=== PATIENT | male | born 1945 | race Caucasian/White ===

== ENCOUNTER 2017-09-30 13:10 | Inpatient (IN) ==
[2017-09-30] MEDS ORDERED: 0.9 % Sodium Chloride 1,000 ML IVC ONE (13:20)
--- NOTE | 2017-09-30 13:24 | Emergency Department Note ---
Disposition Clinical Impression: Syncope and collapse Disposition: Admitted As Inpatient Condition: Fair Time of Disposition: 17:40 Altered Mental Status HPI - General Chief Complaint: ED Altered Mental Status Stated Complaint: ams Time Seen by Provider: 09/30/17 13:12 Source: patient Mode of arrival: ambulatory Limitations: no limitations Nursing Notes Reviewed: Yes Vital Signs Reviewed: Yes - History of Present Illness HPI Narrative: 72-year-old male history of previous stroke presents complaining of syncope, per the report from EMS and the family is at bedside, he has baseline deficits including a aphasia But no motor deficits. 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 They state he has had episodes of syncope and near-syncope in the past, never this long. At this point he is currently at his neurologic baseline , he can answer some questions but is very slow therefore most history is obtained from family. He denies chest pain, he denies any weakness in his bilateral upper and lower extremities. Denies fever and chills. MD complaint: altered mental status, confusion, other (Syncope) Onset (ago): Just [employer] Timing confirmed by: family member Pain Severity: moderate Consistency of Symptoms: waxing and waning Associated symptoms: Reports: denies other symptoms. Denies: chest pain, cough , diaphoresis, fever, chills, nausea/vomiting Treatments prior to arrival: oxygen - Related Data Home Medications Medication Instructions Recorded Confirmed Atenolol [Tenormin] 25 mg PO DAILY 09/30/17 09/30/17 Atorvastatin [Lipitor] 40 mg PO HS 09/30/17 09/30/17 Cetirizine HCl [Zyrtec] 10 mg PO DAILY PRN 09/30/17 09/30/17 Cholecalciferol (D-3) [Vitamin D] 2,000 unit PO DAILY 09/30/17 09/30/17 Dextrose [Glucose] 16 gm PO ONCE PRN 09/30/17 09/30/17 Insulin ASPART [Novolog Flexpen] 15 unit SQ TIDAC 09/30/17 09/30/17 Potassium Chloride [Klor-Con 10] 10 meq PO DAILY 09/30/17 09/30/17 Tamsulosin [Flomax] 0.4 mg PO DAILY 09/30/17 09/30/17 Allergies Allergy/AdvReac Type Severity Reaction Status Date / Time aspirin Allergy See Verified 08/23/17 23:19 Comments All systems ED: reviewed and negative except as stated. Review of Systems: As Per HPI Constitutional: Reports: as per HPI, weakness. Denies: fever, chills Eyes: Denies: eye pain, eye discharge ENT ED: Denies: ear pain Cardiovascular: Denies: chest pain, palpitations Respiratory: Denies: cough, dyspnea Gastrointestinal: Denies: abdominal pain, nausea Genitourinary: Denies: urgency, dysuria Musculoskeletal: Denies: back pain Integumentary: Denies: rash, abrasion Neurological: Reports: as per HPI, weakness. Denies: headache, numbness, paresthesias Past Medical History - Past Medical History Attestation: Yes The following information was validated with the patient. Source: patient Medical history: Reports: CVA, diabetes, hyperlipidemia, hypertension - Social History Smoking Status: Never smoker Smokeless Tobacco Status: No Alcohol use: Reports: none Drug use: Reports: none Physical Exam Constitutional: NAD, mildly confused but pleasant Eyes: PERRLA, sclera anicteric ENT & Mouth: MM dry Neck: normal inspection, neck is supple Resp: CTA bilaterally, no resp distress CV: RRR, no m/g/r GI: normal inspection, soft, no guarding or rigidity Neuro: A&O3, CNII-XII grossly intact, LLANOS patient has profound Broca's like aphasia word finding issues however moves all extremities equally 5 out of 5 muscle strength upper and lowers, follows commands, finger to nose intact Skin: on limited exam, skin intact with no rashes or lesions Course Course Narrative: 72-year-old male after syncopal event, presents the ED via EMS, given that he has moderate aphasia, his family thinks this is consistent with his baseline but the syncope is ever lasted this long,'s EKG shows a first-degree AV block, he is currently hemodynamically stable at his neurological baseline which is an NIH of 3 for a aphasia and slurred speech. Otherwise is nonfocal neurologically we will get a CT scan workup for altered mental status including CBC BMP tox panel ethanol and reevaluate - Reevaluation(s) Reevaluation #1: Per the family, the patient is more to his baseline, but given the concerning history of syncope in a 72-year-old male the last for a minute, his lab work is written is within normal limits but I do think that he warrants and evaluation inpatient possibly echocardiogram cardiac monitoring, I spoke with the hospitalist and is agreeable to admission. Violet to accept Time: 17:39 Vital Signs Temperature 98.6 F 09/30/17 13:12 Pulse Rate 60 09/30/17 13:12 Respiratory Rate 14 09/30/17 13:12 Blood Pressure 124/74 09/30/17 13:12 O2 Sat by Pulse Oximetry 97 09/30/17 13:12 Temperature 98.6 F 09/30/17 13:12 Pulse Rate 60 09/30/17 13:12 Respiratory Rate 14 09/30/17 13:12 Blood Pressure 124/74 09/30/17 13:12 O2 Sat by Pulse Oximetry 97 09/30/17 13:12 Oxygen Delivery Oxygen Delivery Room Air Altered Mental Status - [facility] Narrative Medical decision making narrative: 72-year-old male with syncope, history of stroke, altered mental status and aphasia at his baseline for syncope to the hospitalist service - Differential Diagnosis Likely: alcoholic intoxication, altered mental status, hypoglycemia, hyponatremia - Medical Records Medical records reviewed: Yes I reviewed the patient's medical records. - Lab Data Lab results reviewed: Yes I reviewed the patient's lab results. Result diagrams: 09/30/17 13:50 09/30/17 13:50 Lab Results 09/30/17 09/30/17 09/30/17 Range/Units 13:13 13:50 13:50 WBC 6.5 (4.3-11.1) K/mcL RBC 3.98 L (4.19-5.50) M/mcL Hgb 11.8 L (12.9-16.9) g/dL Hct 35.5 L (37.5-50.1) % MCV 89.2 (83.0-100.0) fL MCH 29.6 (28.0-33.3) pg MCHC 33.2 (31.6-35.5) g/dL RDW 13.2 (11.5-14.5) % Plt Count 250 (140-400) K/mcL MPV 9.8 (9.4-12.4) fL Immature Gran % 0.3 (0-4) % Seg Neutrophils % 53.6 % Lymphocytes % 34.4 % Monocytes % 6.6 % Eosinophils % 4.6 % Basophils % 0.5 % Neutrophils # 3.5 (1.6-8.9) K/mcL Lymphocytes # 2.2 (0.6-4.6) K/mcL Monocytes # 0.4 (0.0-1.3) K/mcL Eosinophils # 0.3 (0.0-0.6) K/mcL Basophils # 0.0 (0.0-0.2) K/mcL PT 12.2 H (9.4-12.1) Seconds INR 1.1 APTT 29.2 (26.0-36.0) Seconds Sodium (136-145) mEq/L Potassium (3.5-5.1) mEq/L Chloride (98-107) mEq/L Carbon Dioxide (23-29) mEq/L BUN (8-23) mg/dL Creatinine (0.70-1.30) mg/dL Est GFR ( Amer) (> 60) Est GFR (Non-Af Amer) (> 60) BUN/Creatinine Ratio (6-26) Glucose (70-105) mg/dL POC Glucose 131 H (58-89) Calculated Osmolality (280-300) Calcium (8.6-10.3) mg/dL Total Bilirubin (0.3-1.0) mg/dL Direct Bilirubin (0.0-0.2) mg/dL Indirect Bilirubin (0.0-1.2) mg/dL AST (13-39) Units/L ALT (7-52) Units/L Alkaline Phosphatase (34-104) Units/L Ammonia (16-53) mcmol/L Creatine Kinase (30-223) Units/L Troponin I (< 0.04) ng/mL Serum Total Protein (6.4-8.9) g/dL Albumin (3.5-5.7) g/dL Globulin (2.4-3.5) g/dL Albumin/Globulin Ratio (1.1-2.2) TSH (0.340-5.600) mcIU/mL Urine Color (Yellow) Urine Clarity (Clear) Urine pH (5.0-8.0) pH Units Ur Specific [place] (1.010-1.025) Urine Protein (Neg-Trace) mg/dL Urine Glucose (UA) (Normal) mg/dL Urine Ketones (Negative) mg/dL Urine Blood (Negative) Urine Nitrite (Negative) Urine Bilirubin (Negative) Urine Urobilinogen (Normal) mg/dL Ur Leukocyte Esterase (Negative) Urine Microscopic RBC (0-3) per hpf Urine Microscopic WBC (0-3) per hpf Ur Squamous Epith Cells (None-Few) per lpf Urine Bacteria (None-Few) per hpf Hyaline Casts (None-Few) per lpf Ur Culture Indicated? (NO) Urine Opiates Screen (Xkymrs=186) ng/mL Ur Barbiturates Screen (Rjsjzn=281) ng/mL Ur Phencyclidine Scrn (Cutoff=25) ng/mL Ur Amphetamines Screen (Mzkbku=0697) ng/mL U Benzodiazepines Scrn (Mrpcop=573) ng/mL Urine Cocaine Screen (Cutoff= 300) ng/mL U Marijuana (THC) Screen (Cutoff = 50) ng/mL Ethyl Alcohol (0-10) mg/dL 09/30/17 09/30/17 09/30/17 Range/Units 13:50 13:50 13:50 WBC (4.3-11.1) K/mcL RBC (4.19-5.50) M/mcL Hgb (12.9-16.9) g/dL Hct (37.5-50.1) % MCV (83.0-100.0) fL MCH (28.0-33.3) pg MCHC (31.6-35.5) g/dL RDW (11.5-14.5) % Plt Count (140-400) K/mcL MPV (9.4-12.4) fL Immature Gran % (0-4) % Seg Neutrophils % % Lymphocytes % % Monocytes % % Eosinophils % % Basophils % % Neutrophils # (1.6-8.9) K/mcL Lymphocytes # (0.6-4.6) K/mcL Monocytes # (0.0-1.3) K/mcL Eosinophils # (0.0-0.6) K/mcL Basophils # (0.0-0.2) K/mcL PT (9.4-12.1) Seconds INR APTT (26.0-36.0) Seconds Sodium 138 (136-145) mEq/L Potassium 3.7 (3.5-5.1) mEq/L Chloride 101 (98-107) mEq/L Carbon Dioxide 28 (23-29) mEq/L BUN 18 (8-23) mg/dL Creatinine 1.47 H (0.70-1.30) mg/dL Est GFR ( Amer) 57 L (> 60) Est GFR (Non-Af Amer) 47 L (> 60) BUN/Creatinine Ratio 12 (6-26) Glucose 141 H (70-105) mg/dL POC Glucose (58-89) Calculated Osmolality 290 (280-300) Calcium 9.5 (8.6-10.3) mg/dL Total Bilirubin 0.5 (0.3-1.0) mg/dL Direct Bilirubin 0.1 (0.0-0.2) mg/dL Indirect Bilirubin 0.4 (0.0-1.2) mg/dL AST 19 (13-39) Units/L ALT 14 (7-52) Units/L Alkaline Phosphatase 57 (34-104) Units/L Ammonia 27 (16-53) mcmol/L Creatine Kinase 306 H (30-223) Units/L Troponin I < 0.03 (< 0.04) ng/mL Serum Total Protein 7.0 (6.4-8.9) g/dL Albumin 4.2 (3.5-5.7) g/dL Globulin 2.8 (2.4-3.5) g/dL Albumin/Globulin Ratio 1.5 (1.1-2.2) TSH 2.859 (0.340-5.600) mcIU/mL Urine Color (Yellow) Urine Clarity (Clear) Urine pH (5.0-8.0) pH Units Ur Specific [place] (1.010-1.025) Urine Protein (Neg-Trace) mg/dL Urine Glucose (UA) (Normal) mg/dL Urine Ketones (Negative) mg/dL Urine Blood (Negative) Urine Nitrite (Negative) Urine Bilirubin (Negative) Urine Urobilinogen (Normal) mg/dL Ur Leukocyte Esterase (Negative) Urine Microscopic RBC (0-3) per hpf Urine Microscopic WBC (0-3) per hpf Ur Squamous Epith Cells (None-Few) per lpf Urine Bacteria (None-Few) per hpf Hyaline Casts (None-Few) per lpf Ur Culture Indicated? (NO) Urine Opiates Screen (Iemexs=438) ng/mL Ur Barbiturates Screen (Aufzhv=864) ng/mL Ur Phencyclidine Scrn (Cutoff=25) ng/mL Ur Amphetamines Screen (Baiyvb=2940) ng/mL U Benzodiazepines Scrn (Uxlwls=539) ng/mL Urine Cocaine Screen (Cutoff= 300) ng/mL U Marijuana (THC) Screen (Cutoff = 50) ng/mL Ethyl Alcohol < 10 (0-10) mg/dL 09/30/17 09/30/17 Range/Units 16:02 16:02 WBC (4.3-11.1) K/mcL RBC (4.19-5.50) M/mcL Hgb (12.9-16.9) g/dL Hct (37.5-50.1) % MCV (83.0-100.0) fL MCH (28.0-33.3) pg MCHC (31.6-35.5) g/dL RDW (11.5-14.5) % Plt Count (140-400) K/mcL MPV (9.4-12.4) fL Immature Gran % (0-4) % Seg Neutrophils % % Lymphocytes % % Monocytes % % Eosinophils % % Basophils % % Neutrophils # (1.6-8.9) K/mcL Lymphocytes # (0.6-4.6) K/mcL Monocytes # (0.0-1.3) K/mcL Eosinophils # (0.0-0.6) K/mcL Basophils # (0.0-0.2) K/mcL PT (9.4-12.1) Seconds INR APTT (26.0-36.0) Seconds Sodium (136-145) mEq/L Potassium (3.5-5.1) mEq/L Chloride (98-107) mEq/L Carbon Dioxide (23-29) mEq/L BUN (8-23) mg/dL Creatinine (0.70-1.30) mg/dL Est GFR ( Amer) (> 60) Est GFR (Non-Af Amer) (> 60) BUN/Creatinine Ratio (6-26) Glucose (70-105) mg/dL POC Glucose (58-89) Calculated Osmolality (280-300) Calcium (8.6-10.3) mg/dL Total Bilirubin (0.3-1.0) mg/dL Direct Bilirubin (0.0-0.2) mg/dL Indirect Bilirubin (0.0-1.2) mg/dL AST (13-39) Units/L ALT (7-52) Units/L Alkaline Phosphatase (34-104) Units/L Ammonia (16-53) mcmol/L Creatine Kinase (30-223) Units/L Troponin I (< 0.04) ng/mL Serum Total Protein (6.4-8.9) g/dL Albumin (3.5-5.7) g/dL Globulin (2.4-3.5) g/dL Albumin/Globulin Ratio (1.1-2.2) TSH (0.340-5.600) mcIU/mL Urine Color Yellow (Yellow) Urine Clarity Cloudy A (Clear) Urine pH 5.5 (5.0-8.0) pH Units Ur Specific [place] 1.017 (1.010-1.025) Urine Protein >=300 H (Neg-Trace) mg/dL Urine Glucose (UA) Normal (Normal) mg/dL Urine Ketones Negative (Negative) mg/dL Urine Blood Negative (Negative) Urine Nitrite Negative (Negative) Urine Bilirubin Negative (Negative) Urine Urobilinogen Normal (Normal) mg/dL Ur Leukocyte Esterase Small H (Negative) Urine Microscopic RBC 0-3 (0-3) per hpf Urine Microscopic WBC 15-30 H (0-3) per hpf Ur Squamous Epith Cells Many H (None-Few) per lpf Urine Bacteria None Seen (None-Few) per hpf Hyaline Casts None Seen (None-Few) per lpf Ur Culture Indicated? NO (NO) Urine Opiates Screen Negative (Tkzkow=514) ng/mL Ur Barbiturates Screen Negative (Jnoywp=115) ng/mL Ur Phencyclidine Scrn Negative (Cutoff=25) ng/mL Ur Amphetamines Screen Negative (Vctaty=4941) ng/mL U Benzodiazepines Scrn Negative (Bnmdfr=947) ng/mL Urine Cocaine Screen Negative (Cutoff= 300) ng/mL U Marijuana (THC) Screen Negative (Cutoff = 50) ng/mL Ethyl Alcohol (0-10) mg/dL - Radiology Data Radiology results reviewed: Yes I reviewed the patient's radiology results. Chest X-Ray 09/30/17 13:20 IMPRESSION: No acute cardiopulmonary findings. D/ / Yane Staples MD / Yane Staples MD Interpreting Provider: Yane Staples MD Head CT 09/30/17 13:21 IMPRESSION: 1. No acute intracranial abnormality. 2. Mild cerebral atrophy with chronic small vessel ischemic disease. 3. Old left frontal lobe infarct. D/ / Maurice Ledbetter MD / Maurice Ledbetter MD Interpreting Provider: Maurice Ledbetter MD - EKG Data EKG attestation: Yes I reviewed and interpreted this EKG. EKG shows normal: sinus rhythm Rate: bradycardia (59 bpm WY 1 228 QRS 146 QTC 539, prolonged QT, prolonged [place] interval. 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 Warnings/Precautions Patient/family understanding: The patient/family members have been counseled and understood the risk, benefit , and alternatives of treatment. NIH Stroke Scale - Level of Consciousness LOC: Alert - LOC Questions LOC Questions: Answers one correctly - LOC Commands LOC Commands: Performs both correctly - Best Gaze Best Gaze: Normal - Visual Visual: No visual loss - Facial Palsy Facial Palsy: Normal - Motor Arms Motor Arm-Left: No drift for 10 seconds Motor Arm-Right: No drift for 10 seconds - Motor Legs Motor Leg-Left: No drift for 5 seconds Motor Leg-Right: No drift for 5 seconds - Limb Ataxia Limb Ataxia: Absent of affected limb too weak to perform exam - Sensory Sensory: Normal - Best Language Best Language: Mild to moderate aphasia. Examiner can identify picture from response - Dysarthria Dysarthria: Mild, slurs some words - Extinction and Inattention Extinction and Inattention: Normal - NIHSS Total Score NIHSS Total Score: 3
--- NOTE | 2017-09-30 13:26 | Emergency Department Note ---
START Narrative - START START: I examined this patient and my medical decision-making was reviewed with the Resident Physician. I agree with the documented findings, disposition and treatment plan as described except to the extent set forth below. 72 yo M here for syncope from [facility] pt was getting his eyes dilated and was sitting in dark room and began to feel weak and had a full syncopal episode of a few min. denies cp or sob he is at his baseline now. pt has some problems with speech and sentences and gets confused easily. previous CVA has left him at his baseline BP at the scene was in the 70s systolic. its normal now
[2017-09-30 14:02] LABS: Basophils % 0.5 %; Eosinophils # 0.3 K/mcL (0.0-0.6); Eosinophils % 4.6 %; Hematocrit 35.5 % (37.5-50.1); Hemoglobin 11.8 g/dL (12.9-16.9); Immature Granulocytes % 0.3 % (0-4); Lymphocytes # 2.2 K/mcL (0.6-4.6); Lymphocytes % 34.4 %; Mean Corpuscular HGB Conc 33.2 g/dL (31.6-35.5); Mean Corpuscular Hemoglobin 29.6 pg (28.0-33.3); Mean Corpuscular Volume 89.2 fL (83.0-100.0); Mean Platelet Volume 9.8 fL (9.4-12.4); Monocytes # 0.4 K/mcL (0.0-1.3); Monocytes % 6.6 %; Neutrophils # 3.5 K/mcL (1.6-8.9); Platelet Count 250 K/mcL (140-400); Red Blood Count 3.98 M/mcL (4.19-5.50); Red Cell Distribution Width 13.2 % (11.5-14.5); Segmented Neutrophils % 53.6 %
[2017-09-30 14:06] LABS: INR 1.1; Prothrombin Time 12.2 Seconds (9.4-12.1)
[2017-09-30 14:08] LABS: Activated Partial Thrombo Time 29.2 Seconds (26.0-36.0)
[2017-09-30 14:13] LABS: Ethanol < 10 mg/dL (0-10)
[2017-09-30 14:28] LABS: Alanine Aminotransferase 14 Units/L (7-52); Albumin 4.2 g/dL (3.5-5.7); Albumin/Globulin Ratio 1.5 (1.1-2.2); Alkaline Phosphatase 57 Units/L (34-104); Aspartate Amino Transferase 19 Units/L (13-39); BUN/Creatinine Ratio 12 (6-26); Bilirubin,Direct 0.1 mg/dL (0.0-0.2); Bilirubin,Indirect 0.4 mg/dL (0.0-1.2); Bilirubin,Total 0.5 mg/dL (0.3-1.0); Blood Urea Nitrogen 18 mg/dL (8-23); Calcium 9.5 mg/dL (8.6-10.3); Carbon Dioxide 28 mEq/L (23-29); Chloride 101 mEq/L (98-107); Creatine Kinase 306 Units/L (30-223); Globulin 2.8 g/dL (2.4-3.5); Glucose 141 mg/dL (70-105); Osmolality,Calculated 290 (280-300); Potassium 3.7 mEq/L (3.5-5.1); Sodium 138 mEq/L (136-145); eGFR For African Americans 57 (> 60); eGFR For Non-African Americans 47 (> 60)
[2017-09-30 14:29] LABS: Thyroid Stimulating Hormone 2.859 mcIU/mL (0.340-5.600)
[2017-09-30 16:49] LABS: Bilirubin,Urine Negative (Negative); Blood,Urine Negative (Negative); Clarity,Urine Cloudy (Clear); Color,Urine Yellow (Yellow); Glucose,Urine (UA) Normal (Normal); Ketones,Urine Negative (Negative); Leukocyte Esterase,Urine Small (Negative); Nitrite,Urine Negative (Negative); PH,Urine 5.5 pH Units (5.0-8.0); Protein,Urine >=300 mg/dL (Neg-Trace); Specific Gravity,Urine 1.017 (1.010-1.025); Urobilinogen,Urine Normal (Normal)
[2017-09-30 16:52] LABS: Bacteria,Urine None Seen per hpf (None-Few); Hyaline Casts,Urine None Seen per lpf (None-Few); RBC,Urine 0-3 per hpf (0-3); Squamous Epithelial Cell,Urine Many per lpf (None-Few); WBC,Urine 15-30 per hpf (0-3)
[2017-09-30 16:56] LABS: Amphetamine Screen,Urine Negative ng/mL (Cutoff=1000); Barbiturate Screen,Urine Negative ng/mL (Cutoff=200); Benzodiazepines Screen,Urine Negative ng/mL (Cutoff=200); Cannabinoid Screen,Urine Negative ng/mL (Cutoff = 50); Cocaine Screen,Urine Negative ng/mL (Cutoff= 300); Opiate Screen,Urine Negative ng/mL (Cutoff=300); Phencyclidine Screen,Urine Negative ng/mL (Cutoff=25)
[2017-09-30] MEDS ORDERED: Ondansetron ODT 4 MG TAB.RAPDIS SL PRN (21:22)
[2017-09-30] MEDS ORDERED: Acetaminophen 325 MG TABLET PO PRN (21:22)
[2017-09-30] MEDS ORDERED: Naloxone 0.4 MG/ML INJ IVP PRN (21:22)
[2017-09-30] MEDS ORDERED: 0.9 % Sodium Chloride 1,000 ML IVC SCH (22:15)
--- NOTE | 2017-09-30 22:16 | Internal Med History&Physical ---
Date of Encounter: 09/30/17 Time of Encounter: 22:36 Assessment and Plan (1) Syncope and collapse Current visit: Yes Status: Acute Patient had a episode of syncope and had LOC for unknown amount time. He was back to baseline within a little over an hour Unsure if this is related to hypoglycemia orthostatic vasovagal or TIA. CT of head was negative for any acute intracranial abnormality. We will obtain MRI in the morning Continue neuro checks NHISS Obtain cardiac echo Cardiac monitoring Orthostatic vital signs Fall precautions IV fluids overnight Carotid Doppler (2) HANY (acute kidney injury) Current visit: Yes Status: Acute Creatinine is 1.47 unsure if this is his baseline we will continue to monitor We will give IV fluids overnight Monitor intake and output daily weights Avoid nephrotoxins (3) Diabetes mellitus Current visit: Yes Status: Acute Accu-Cheks before meals at bedtime with sliding scale insulin Diabetic diet Qualifiers: Diabetes mellitus type: type 2 Diabetes mellitus complication status: without complication Diabetes mellitus intermodal customer service insulin use: with intermodal customer service use Qualified Code(s): E11.9 - Type 2 diabetes mellitus without complications ; Z79.4 - retirement (current) use of insulin; Z79.4 - retirement (current) use of insulin; 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 Renner is a 72 year old male past medical history of CVA diabetes hyperlipidemia hypertension. Information obtained from medical records as well as patient patient does have a history of aphasia and has difficulty speaking. 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 There was no instrumentation of his eyes. The patient states that his blood sugar dropped, he was out for several minutes and the EMS was notified. According documentation upon arrival patient's systolic blood pressure was in the 70s. He began to arouse and by the time he presented to the ER he was awake and appropriate following commands. After about an hour he was back to his baseline. He has had a stroke in the past and he has Broca aphasia no focal deficits. CT of head was obtained which did reveal an old frontal infarct but nothing acute. Lab work did show a KI with creatinine 1.47 troponin was negative tox screen was negative chest x-ray with no acute process. He has been admitted for further workup and evaluation. Presently patient is hemodynamically stable and does not appear to be respiratory distress. He is at his neurological baseline. I did review this case with Dr. Cuevas 7 Past Med Surg Social Fam HX - Past Medical History Medical history: CVA, diabetes, hyperlipidemia, hypertension Psychiatric history: no psych history - Social History Smoking Status: Never smoker Smokeless Tobacco Status: No Alcohol use: none Drug use: none - Additional Family History Additional family history: Reviewed-unknown Internal Medicine - H&P: Meds Atenolol [Tenormin] 25 mg PO DAILY 09/30/17 [History] Atorvastatin [Lipitor] 40 mg PO HS 09/30/17 [History] Cetirizine HCl [Zyrtec] 10 mg PO DAILY PRN 09/30/17 [History] Cholecalciferol (D-3) [Vitamin D] 2,000 unit PO DAILY 09/30/17 [History] Dextrose [Glucose] 16 gm PO ONCE PRN 09/30/17 [History] Insulin ASPART [Novolog Flexpen] 15 unit SQ TIDAC 09/30/17 [History] Potassium Chloride [Klor-Con 10] 10 meq PO DAILY 09/30/17 [History] Tamsulosin [Flomax] 0.4 mg PO DAILY 09/30/17 [History] 3 Allergy/AdvReac Type Severity Reaction Status Date / Time aspirin Allergy See Verified 08/23/17 23:19 Comments ROS unobtainable: due to mental status, other All Systems PM: A 10-system review of systems was performed and is negative for pertinent findings except as documented above in the HPI. - Constitutional Vitals: Temp Pulse Resp BP Pulse Ox 98.3 F 75 16 144/77 97 09/30/17 21:45 09/30/17 21:45 09/30/17 21:45 09/30/17 21:45 09/30/17 18:42 General appearance: Present: A&O X 3 - Head Head exam: Present: atraumatic, normocephalic - Eye Eye exam: Present: PERRL, conjuntiva pink, sclera anicteric Pupils: Present: PERRL - Neck Neck exam general surgery: Present: supple, trachea midline. Absent: lymphadenopathy - Respiratory Respiratory exam: Present: CTAB. Absent: accessory muscle use, rales, rhonchi, wheezes - Cardiovascular Cardiovascular exam: Present: RRR, +S1, +S2. Absent: diastolic murmur, gallop, rubs, systolic murmur - GI/Abdominal GI/Abdominal exam: Present: normal bowel sounds, soft, no peritoneal signs. Absent: distended, tenderness - Extremities Exam Extremities exam: Present: warm, radial pulses palpable and symmetrical. Absent : calf tenderness, cyanotic, pedal edema - Neurological Exam Neurological exam: Present: alert, CN II-XII intact, oriented X3, no focal deficits. Absent: pronater drift, facial droop, speech deficit Additional comments: Broken speech pattern - Skin Skin exam: Present: dry, intact Internal Med - H&P Results - Labs CBC & Chem 7: 09/30/17 13:50 09/30/17 13:50 - EKG Data EKG shows normal: sinus rhythm - EKG Data Prior EKG available for review: yes When compared to previous EKG: there is no significant change EKG comments: 09/30/17 22:27 Sinus rhythm with first-degree block no ST-T wave abnormal maladies noted
[2017-09-30] MEDS ORDERED: D5% in Water 1,000 ML IVC PRN (22:17)
[2017-09-30] MEDS ORDERED: *HR* Dextrose 50 % in Water (Syg) 50 ML SYRINGE IVP PRN (22:17)
[2017-09-30] MEDS ORDERED: Dextrose Gel 15 GM PO PRN ×2 (22:17)
[2017-10-01 04:42] LABS: Basophils # 0.1 K/mcL (0.0-0.2); Basophils % 0.8 %; Eosinophils # 0.3 K/mcL (0.0-0.6); Eosinophils % 4.9 %; Hematocrit 33.2 % (37.5-50.1); Hemoglobin 10.9 g/dL (12.9-16.9); Immature Granulocytes % 0.2 % (0-4); Lymphocytes % 41.4 %; Mean Corpuscular HGB Conc 32.8 g/dL (31.6-35.5); Mean Corpuscular Hemoglobin 29.8 pg (28.0-33.3); Mean Corpuscular Volume 90.7 fL (83.0-100.0); Mean Platelet Volume 10.9 fL (9.4-12.4); Monocytes # 0.5 K/mcL (0.0-1.3); Monocytes % 7.6 %; Neutrophils # 2.7 K/mcL (1.6-8.9); Platelet Count 159 K/mcL (140-400); Red Blood Count 3.66 M/mcL (4.19-5.50); Red Cell Distribution Width 13.1 % (11.5-14.5); Segmented Neutrophils % 45.1 %
[2017-10-01 05:05] LABS: BUN/Creatinine Ratio 14 (6-26); Blood Urea Nitrogen 17 mg/dL (8-23); Calcium 8.8 mg/dL (8.6-10.3); Carbon Dioxide 22 mEq/L (23-29); Chloride 107 mEq/L (98-107); Glucose 174 mg/dL (70-105); Magnesium 2.1 mg/dL (1.6-2.6); Osmolality,Calculated 298 (280-300); Potassium 3.8 mEq/L (3.5-5.1); Sodium 141 mEq/L (136-145); eGFR For African Americans > 60 (> 60); eGFR For Non-African Americans 60 (> 60)
[2017-10-01] MEDS: *HR* Heparin 5,000 UNIT/ML VIAL SQ SCH ×2 (05:11→17:21)
[2017-10-01 05:12] LABS: Lymphocytes # 2.4 K/mcL (0.6-4.6)
[2017-10-01 05:23] LABS: Platelet Estimate Normal (Normal)
[2017-10-01] MEDS: Insulin LISPRO 300 UNITS/3 ML VIAL SQ SCH ×3 (08:37→17:21)
--- NOTE | 2017-10-01 16:18 | Internal Med Progress Note ---
Date of Encounter: 10/01/17 Time of Encounter: 09:05 - Assessment and plan (1) DVT prophylaxis Current Visit: Yes Status: Acute Assessment and plan: Heparin subcutaneous (2) Syncope and collapse Current Visit: Yes Status: Acute Assessment and plan: She reports that he was at the eye doctor at the [place]. He just had his eyes dilated when he reported to his he has not eaten several hours and he was not feeling well. He states that they attempted to give him food and drinks, however it was too late. Patient had syncopal episode and was brought to the emergency department from the [facility]. 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 Apparently he had several minute loss of consciousness. Patient has prior history of syncope and near syncope in the past, however never this long. Patient is neurologically intact. His gait is steady. He does not report dizziness with position change. He is neurologically intact other than his normal baseline deficits. Urinary reported paresthesia, patient does appear to have some mild difficulty speaking , that he is easy to understand speech is slightly slurred. Normal for patient. Chest x-ray is negative. Head CT negative for acute, there is mild cerebral atrophy with chronic small vessel ischemic disease and an old left frontal lobe infarct. Patient echocardiogram with preserved EF., Moderate healthy DD, mild MR and normal wall motion. Carotid with nonstenotic plaque bilaterally in the ICA. Orthostatic vital signs are negative. MRI head is still pending. Continue surgical rn labs Follow-up precautions and bed alarm MRI brain still pending. We will consult neurology based on results (3) HANY (acute kidney injury) Current Visit: Yes Status: Acute Assessment and plan: Patient denies any knowledge of renal disease. Minimal past results to trend, however does appear that he has at least CKD III. Avoid nephrotoxins Monitor labs (4) Diabetes mellitus Current Visit: Yes Status: Chronic Assessment and plan: A1c is ordered for the morning. Continue sliding scale insulin, Accu-Cheks before meals and at bedtime, diabetic diet. 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 - Time Spent With Patient less than 15 minutes - Subjective Interval history: Patient was seen and assessed at 9:05 AM. He reports that he believes that he was hypoglycemic which caused his syncopal episode. Patient is incontinent of urine. He states that he never followed up on [facility]. He has been wearing and told diapers for over a year. Patient would like to follow up with dermatology here for investigation after discharge. He denies any chest pain, shortness of breath, diaphoresis, nausea, vomiting, abdominal pain. - Constitutional Vitals: Temp Pulse Resp BP Pulse Ox 98.7 F 58 15 161/72 99 10/01/17 16:02 10/01/17 16:02 10/01/17 16:02 10/01/17 16:02 10/01/17 16:02 General appearance: Present: cooperative, A&O X 3, pleasant, no acute distress, answers questions appropriately - Head Head exam: Present: atraumatic, normal inspection, normocephalic - Eye Eye exam: Present: normal appearance, conjuntiva pink, sclera anicteric - Neck Neck exam general surgery: Present: supple, trachea midline. Absent: lymphadenopathy, normal inspection, tenderness - Respiratory Respiratory exam: Present: CTAB. Absent: accessory muscle use, rales, rhonchi, wheezes - Cardiovascular Cardiovascular exam: Present: RRR, +S1, +S2. Absent: diastolic murmur, gallop, rubs, systolic murmur - GI/Abdominal GI/Abdominal exam: Present: normal bowel sounds, soft, no peritoneal signs. Absent: distended, hepatomegaly, tenderness - Extremities Exam Extremities exam: Present: normal capillary refill, normal inspection, warm, radial pulses palpable and symmetrical. Absent: calf tenderness, cyanotic, pedal edema - Neurological Exam Neurological exam: Present: alert, oriented X3, no focal deficits. Absent: facial droop, speech deficit - Skin Skin exam: Present: dry, intact, normal color, warm. Absent: rash Internal Medicine: Result - Labs CBC & Chem 7: 10/01/17 04:03 10/01/17 04:03 Labs: Short CBC 10/01/17 Range/Units 04:03 WBC 5.9 (4.3-11.1) K/mcL Hgb 10.9 L (12.9-16.9) g/dL Hct 33.2 L (37.5-50.1) % Plt Count 159 (140-400) K/mcL Neutrophils # 2.7 (1.6-8.9) K/mcL BMP 10/01/17 04:03 Sodium 141 Potassium 3.8 Chloride 107 Carbon Dioxide 22 L BUN 17 Creatinine 1.19 Glucose 174 H Calcium 8.8 Cardiac Enzymes 09/30/17 10/01/17 Range/Units 21:48 04:03 Troponin I < 0.03 < 0.03 (< 0.04) ng/mL - ABG Interpretation ABG results: PT/INR, D-dimer PT 12.2 Seconds (9.4-12.1) H 09/30/17 13:50 - Impressions Impressions Echocardiogram 09/30/17 22:08 Impressions: LVEF 55-60%. Normal LV chamber size, wall thickness and function. Moderate left ventricular diastolic dysfunction. Normal right ventricular structure and function. Mild mitral regurgitation. Mild pulmonary hypertension. Left Ventricular Wall Motion: Rest Echo Findings All wall segments showed normal motion. Findings: Study Quality * Technically adequate exam. ECG Findings * Normal sinus rhythm. Left Ventricle * LVEF 55-60%. * Normal LV chamber size, wall thickness and function. * Moderate left ventricular diastolic dysfunction. Right Ventricle * Normal right ventricular structure and function. Left Atrium * Moderately dilated left atrium. Right Atrium * Mildly dilated right atrium. Interatrial Septum * No evidence of PFO by color Doppler. Aortic Valve * Trileaflet aortic valve. * Mildly sclerotic aortic valve leaflets. * No aortic regurgitation. * No aortic stenosis. Mitral Valve * Normal mitral valve structure. * Mild mitral regurgitation. * No mitral stenosis. Tricuspid Valve * Normal tricuspid valve structure and function. * Trace tricuspid regurgitation. * Mild pulmonary hypertension. Pulmonic Valve * Normal pulmonic valve structure and function. * No pulmonic regurgitation. Aorta * Normally sized aortic root. Pericardium * The pericardium appears normal. IVC * Normal IVC dimensions and inspiratory collapse. Pulmonary Artery * Normal visualized portions of the main pulmonary artery. Consult Discharge Plan - Plan [facility]errals: [facility] [Primary Care Provider[facility] - [facility] [Family Provider] -
--- NOTE | 2017-10-01 16:33 | Electrocardiograph Report ---
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
[2017-10-01] MEDS ORDERED: Insulin LISPRO 300 UNITS/3 ML VIAL SQ SCH (21:00)
[2017-10-02 05:32] LABS: Hemoglobin A1C 7.1 %
[2017-10-02 05:41] LABS: BUN/Creatinine Ratio 14 (6-26); Blood Urea Nitrogen 17 mg/dL (8-23); Carbon Dioxide 27 mEq/L (23-29); Chloride 105 mEq/L (98-107); Glucose 160 mg/dL (70-105); Osmolality,Calculated 291 (280-300); Potassium 3.7 mEq/L (3.5-5.1); Sodium 138 mEq/L (136-145); eGFR For African Americans > 60 (> 60); eGFR For Non-African Americans > 60 (> 60)
[2017-10-02 06:08] LABS: Basophils % 0.4 %; Eosinophils # 0.3 K/mcL (0.0-0.6); Eosinophils % 6.1 %; Hematocrit 34.3 % (37.5-50.1); Hemoglobin 11.3 g/dL (12.9-16.9); Immature Granulocytes % 0.2 % (0-4); Lymphocytes # 2.3 K/mcL (0.6-4.6); Mean Corpuscular HGB Conc 32.9 g/dL (31.6-35.5); Mean Corpuscular Hemoglobin 29.3 pg (28.0-33.3); Mean Corpuscular Volume 88.9 fL (83.0-100.0); Mean Platelet Volume 10.3 fL (9.4-12.4); Monocytes # 0.3 K/mcL (0.0-1.3); Monocytes % 6.7 %; Neutrophils # 2.1 K/mcL (1.6-8.9); Nucleated Red Blood Cells 0.4 /100 WBC (0); Platelet Count 230 K/mcL (140-400); Red Blood Count 3.86 M/mcL (4.19-5.50); Red Cell Distribution Width 13.2 % (11.5-14.5); Segmented Neutrophils % 41.6 %
[2017-10-02] MEDS: *HR* Heparin 5,000 UNIT/ML VIAL SQ SCH (06:08)
[2017-10-02 07:38] VITALS: BP 137/72
[2017-10-02] MEDS: Insulin LISPRO 300 UNITS/3 ML VIAL SQ SCH (09:21)
--- NOTE | 2017-10-02 10:04 | Discharge Summary ---
Date of Encounter: 10/02/17 Time of Encounter: 08:50 - Discharge Diagnosis (1) Syncope and collapse Priority: Primary Status: Acute Comments: She reports that he was at the eye doctor at the [place]. He just had his eyes dilated when he reported to his he has not eaten several hours and he was not feeling well. He states that they attempted to give him food and drinks, however it was too late. Patient had syncopal episode and was brought to the emergency department from the [place]. 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 Apparently he had several minute loss of consciousness. Patient has prior history of syncope and near syncope in the past, however never this long. Patient is neurologically intact. His gait is steady. He does not report dizziness with position change. He is neurologically intact other than his normal baseline deficits. Urinary reported paresthesia, patient does appear to have some mild difficulty speaking , that he is easy to understand speech is slightly slurred. Normal for patient. Chest x-ray is negative. Head CT negative for acute, there is mild cerebral atrophy with chronic small vessel ischemic disease and an old left frontal lobe infarct. Patient echocardiogram with preserved EF., Moderate healthy DD, mild MR and normal wall motion. Carotid with nonstenotic plaque bilaterally in the ICA. Orthostatic vital signs are negative. MRI head shows No acute intracranial abnormality, age related changes and chronic, stable suparsellar mass. Pt and family are aware and follow up at [facility] with neurology. Most likely episode was vasovagal in nature due to heat/fatigue, mild dehydration. Pt has returned to his baseline. Pt was discharged prior to PT/OT eval completed. He is stable and lives at home with family, has no needs. (2) HANY (acute kidney injury) Priority: Secondary Status: Acute Comments: Patient denies any knowledge of prior renal disease. Minimal past results to review, however, it appears that he has at least stage III chronic kidney disease. Patient follows with his provider at the [place]. Avoid nephrotoxins. (3) Diabetes mellitus Priority: Secondary Status: Chronic Comments: A1c is 7.1 today. Continue home medication and Accu-Chek regimen and diabetic diet. 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 (5) DVT prophylaxis Priority: Secondary Status: Acute Comments: Heparin SQ daily - Discharge Medications Home Medications: Atenolol [Tenormin] 25 mg PO DAILY 09/30/17 [History] Atorvastatin [Lipitor] 40 mg PO HS 09/30/17 [History] Cetirizine HCl [Zyrtec] 10 mg PO DAILY PRN 09/30/17 [History] Cholecalciferol (D-3) [Vitamin D] 2,000 unit PO DAILY 09/30/17 [History] Dextrose [Glucose] 16 gm PO ONCE PRN 09/30/17 [History] Insulin ASPART [Novolog Flexpen] 15 unit SQ TIDAC 09/30/17 [History] Potassium Chloride [Klor-Con 10] 10 meq PO DAILY 09/30/17 [History] Tamsulosin [Flomax] 0.4 mg PO DAILY 09/30/17 [History] Allergies/Adverse Reactions: 3 Allergy/AdvReac Type Severity Reaction Status Date / Time aspirin Allergy See Verified 08/23/17 23:19 Comments Procedures/tests Complete & Pending: Procedures Performed prior 72 hours Category Date Time Status MR head/brain wo con [MR] Routine MRI 09/30/17 22:09 Completed EV carotid duplex imaging BI Routine Y 09/30/17 22:07 Completed EV echocardiogram Routine Y 09/30/17 22:08 Completed Date of admission: 09/30/17 17:22 [facility] physician[facility] Consults: 10/01/17 13:53 Consult to Occupational Therapy [CONS] Routine Comment: Evaluate, develop and implement POC Reason for Consult: eval and treat Consult to Physical Therapy [CONS] Routine Comment: Evaluate, develop and implement POC Reason for Consult: eval and treat 10/02/17 07:14 Consult to Police Officer [CONS] Routine Reason for SW Consult: discharge needs Discharging clinician: Amber Price Anticipated date of discharge: 10/02/17 - Patient Status Disposition: Home, Self-Care Condition: Good Functional capacity at discharge: independent ambulation Overall status at discharge: patient is back to baseline - Discharge Instructions Instructions: Acute Kidney Injury ([facility]), Syncope ([facility]) Follow Up With: [facility],PCP [Primary Care Provider] - [facility] [Family Provider] - Additional Instructions: Follow up with your doctor at the [facility] in the next 7-10 days for recheck. Resume her normal home medications. Resume her normal activities as tolerated. Resume your diabetic diet. Keep up the good work with the A1c. Return to the emergency department for any other problems or concerns, or if your symptoms return or worsen. - Diet and Activity Activity: increase activity as tolerated Diet: diabetic diet Hospital course: Mr. Renner is a 72 year old male with past medical history of prior CVA, stage III renal disease, hypertension, diabetes. Patient presented to the emergency department after syncopal episode at [facility]. He reports that he had not had anything to eat or drink, the room that he was in was very hot. He was aware that he was going to pass out. He denied any chest pain or shortness of breath prior to the incident. He is remained stable and at baseline since he has been here. Head CT and brain MRI were negative for any acute abnormalities. Patient does have a known, chronic, stable pituitary mass, for which he follows at [facility] with neurology. Bilateral carotids showed nonstenotic plaque in the ICA. His orthostatic vital signs were negative. A1c is 7.1. states he has worked very hard to decrease it over the last year. Troponins were negative. Patient has returned to his baseline. His labs and vital signs are stable and within normal limits. Patient is stable for discharge. - Time Spent with Patient Total time spent providing and/or coordinating discharge services: Less than 30 minutes - Constitutional Vitals: Temp Pulse Resp BP Pulse Ox 98.2 F 59 16 137/72 99 10/02/17 07:36 10/02/17 07:36 10/02/17 07:36 10/02/17 07:36 10/02/17 07:36 General appearance: Present: cooperative, A&O X 3, pleasant, no acute distress, answers questions appropriately - Head Head exam: Present: atraumatic, normal inspection, normocephalic - Eye Eye exam: Present: normal appearance, conjuntiva pink, sclera anicteric - Neck Neck exam general surgery: Present: supple, trachea midline. Absent: lymphadenopathy, tenderness - Respiratory Respiratory exam: Present: CTAB. Absent: accessory muscle use, decreased breath sounds, rales, respiratory distress, rhonchi, wheezes - Cardiovascular Cardiovascular exam: Present: RRR, +S1, +S2. Absent: diastolic murmur, gallop, rubs, systolic murmur - GI/Abdominal GI/Abdominal exam: Present: normal bowel sounds, soft, no peritoneal signs. Absent: distended, hepatomegaly, tenderness - Extremities Exam Extremities exam: Present: normal inspection, warm, radial pulses palpable and symmetrical. Absent: calf tenderness, cyanotic, pedal edema - Neurological Exam Neurological exam: Present: alert, oriented X3, no focal deficits. Absent: facial droop, speech deficit - Skin Skin exam: Present: dry, intact, normal color, warm. Absent: rash
== END 2017-10-02 11:45 | disposition home or self-care (01) | DRG 312 ==
LOC: EMEROO 13:10 → 3BNU 13:10
PROVIDERS: ADMIT Registered Nurse; ATTEND Registered Nurse

== ENCOUNTER 2018-11-10 02:05 | Observation (INO) ==
--- NOTE | 2018-11-10 02:21 | Emergency Department Note ---
Disposition Clinical Impression: Altered mental status Qualifiers: Altered mental status type: unspecified Qualified Code(s): R41.82 - Altered mental status, unspecified Disposition: Admitted As Inpatient Condition: Fair [facility]errals: [facility] [Primary Care Provider] - Forms: ED Satisfaction Letter Time of Disposition: 04:09 General Adult HPI - General Chief complaint: ED Syncope Stated complaint: syncope Time Seen by Provider: 11/10/18 02:10 Source: EMS Mode of arrival: EMS Limitations: no limitations Nursing Notes Reviewed: Yes Vital Signs Reviewed: Yes - History of Present Illness HPI Narrative: Pt is a 73M that was using the bathroom when reported that she heard him hit the floor and when she went to check on him, he could not answer questions and did not know where he was. When EMS arrived, pt was oriented to place/event/person, but not year. En route, glucose was 170. On presentation pt appears to be drowsy but arousable, can answer some but not all questions, is pale and cold, and can follow some commands but not all. Pt is poor historian at this time and family is not en route. - Related Data Home Medications Medication Instructions Recorded Confirmed Atenolol [Tenormin] 25 mg PO DAILY 09/30/17 09/30/17 Atorvastatin [Lipitor] 40 mg PO HS 09/30/17 09/30/17 Cetirizine HCl [Zyrtec] 10 mg PO DAILY PRN 09/30/17 09/30/17 Cholecalciferol (D-3) [Vitamin D] 2,000 unit PO DAILY 09/30/17 09/30/17 Dextrose [Glucose] 16 gm PO ONCE PRN 09/30/17 09/30/17 Insulin ASPART [Novolog Flexpen] 15 unit SQ TIDAC 09/30/17 09/30/17 Potassium Chloride [Klor-Con 10] 10 meq PO DAILY 09/30/17 09/30/17 Tamsulosin [Flomax] 0.4 mg PO DAILY 09/30/17 09/30/17 Allergies Allergy/AdvReac Type Severity Reaction Status Date / Time aspirin Allergy See Verified 08/23/17 23:19 Comments Limitations: ROS unobtainable due to patients medical condition Past Medical History - Past Medical History Medical history: Reports: CVA, diabetes, hyperlipidemia, hypertension Psychiatric history: Reports: no psych history - Social History Smoking Status: Never smoker Smokeless Tobacco Status: No Alcohol use: Reports: none Drug use: Reports: none Physical Exam - General Limitations: altered mental status General appearance: in no apparent distress - Head Head exam: atraumatic, normocephalic - Eye Eye exam: Present: normal appearance, PERRL, EOMI. Absent: scleral icterus, conjunctival injection - ENT ENT exam: normal exam, normal oropharynx, mucous membranes moist - Neck Neck exam: Present: normal inspection, full ROM - Chest Chest inspection: Present: normal inspection, symmetric chest wall rise - Respiratory Respiratory exam: Present: normal lung sounds bilaterally. Absent: respiratory distress, wheezes - Cardiovascular Cardiovascular exam: Present: bradycardia - Expanded Cardiovascular Exam Peripheral pulses: 2+: radial (R), radial (L), posterior tibialis (R), posterior tibialis (L) - Abdominal Exam Abdominal exam: Present: soft, Non-Tender. Absent: distention, guarding, rebound - Extremities Exam Extremities exam: Present: normal inspection, full ROM - Expanded Lower Extremity Exam Neurovascular/Tendon exam: Present: other (delayed capillary refill) - Neurological Exam Neurological exam: Present: other (drowsy but arousable) - Psychiatric Psychiatric exam: Present: flat affect - Skin Skin exam: Present: dry, intact, pallor Course Course Narrative: Will perform AMS workup to include head CT, screening labs with CBC, BMP, troponin, EKG. Vital Signs Temperature 98.1 F 11/10/18 02:12 Pulse Rate 51 11/10/18 02:12 Respiratory Rate 14 11/10/18 02:12 Blood Pressure 161/69 11/10/18 02:12 O2 Sat by Pulse Oximetry 96 11/10/18 02:12 Temperature 98.1 F 11/10/18 02:12 Pulse Rate 51 11/10/18 02:12 Respiratory Rate 14 11/10/18 02:12 Blood Pressure 161/69 11/10/18 02:12 O2 Sat by Pulse Oximetry 96 11/10/18 02:12 Oxygen Delivery Oxygen Delivery Room Air Medical Decision Making - MDM Narrative Medical decision making narrative: Pt's workup was largely unremarkable, but pt still cannot answer all questions, still cannot follow all commands. Unsure of baseline. Will admit for AMS. Spoke with hospitalist, Dr. Lee, who agrees to accept the patient. Pt remained stable while in the department. - Medical Records Medical records reviewed: Yes I reviewed the patient's medical records. - Lab Data Lab results reviewed: Yes I reviewed the patient's lab results. Result diagrams: 11/10/18 02:35 11/10/18 02:35 Lab Results 11/10/18 11/10/18 11/10/18 Range/Units 02:35 02:35 02:35 WBC 8.0 (4.3-11.1) K/mcL RBC 4.07 L (4.19-5.50) M/mcL Hgb 12.1 L (12.9-16.9) g/dL Hct 35.8 L (37.5-50.1) % MCV 88.0 (83.0-100.0) fL MCH 29.7 (28.0-33.3) pg MCHC 33.8 (31.6-35.5) g/dL RDW 12.4 (11.5-14.5) % Plt Count 232 (140-400) K/mcL MPV 10.2 (9.4-12.4) fL Immature Gran % 0.2 (0-4) % Seg Neutrophils % 52.0 % Lymphocytes % 37.3 % Monocytes % 7.0 % Eosinophils % 3.0 % Basophils % 0.5 % Neutrophils # 4.2 (1.6-8.9) K/mcL Lymphocytes # 3.0 (0.6-4.6) K/mcL Monocytes # 0.6 (0.0-1.3) K/mcL Eosinophils # 0.2 (0.0-0.6) K/mcL Basophils # 0.0 (0.0-0.2) K/mcL PT 11.7 (9.4-12.1) Seconds INR 1.0 APTT 29.5 (26.0-36.0) Seconds Sodium 135 L (136-145) mEq/L Potassium 3.6 (3.5-5.1) mEq/L Chloride 100 (98-107) mEq/L Carbon Dioxide 27 (23-29) mEq/L BUN 18 (8-23) mg/dL Creatinine 1.39 H (0.70-1.30) mg/dL Est GFR ( Amer) > 60 (> 60) Est GFR (Non-Af Amer) 50 L (> 60) BUN/Creatinine Ratio 13 (6-26) Glucose 204 H (70-105) mg/dL Calculated Osmolality 288 (280-300) Lactic Acid (0.5-2.2) mmol/L Calcium 9.4 (8.6-10.3) mg/dL Total Bilirubin 0.4 (0.3-1.0) mg/dL AST 19 (13-39) Units/L ALT 14 (7-52) Units/L Alkaline Phosphatase 59 (34-104) Units/L Creatine Kinase 266 H (30-223) Units/L Troponin I < 0.03 (< 0.04) ng/mL Serum Total Protein 6.7 (6.4-8.9) g/dL Albumin 3.9 (3.5-5.7) g/dL Globulin 2.8 (2.4-3.5) g/dL Albumin/Globulin Ratio 1.4 (1.1-2.2) 11/10/18 Range/Units 02:35 WBC (4.3-11.1) K/mcL RBC (4.19-5.50) M/mcL Hgb (12.9-16.9) g/dL Hct (37.5-50.1) % MCV (83.0-100.0) fL MCH (28.0-33.3) pg MCHC (31.6-35.5) g/dL RDW (11.5-14.5) % Plt Count (140-400) K/mcL MPV (9.4-12.4) fL Immature Gran % (0-4) % Seg Neutrophils % % Lymphocytes % % Monocytes % % Eosinophils % % Basophils % % Neutrophils # (1.6-8.9) K/mcL Lymphocytes # (0.6-4.6) K/mcL Monocytes # (0.0-1.3) K/mcL Eosinophils # (0.0-0.6) K/mcL Basophils # (0.0-0.2) K/mcL PT (9.4-12.1) Seconds INR APTT (26.0-36.0) Seconds Sodium (136-145) mEq/L Potassium (3.5-5.1) mEq/L Chloride (98-107) mEq/L Carbon Dioxide (23-29) mEq/L BUN (8-23) mg/dL Creatinine (0.70-1.30) mg/dL Est GFR ( Amer) (> 60) Est GFR (Non-Af Amer) (> 60) BUN/Creatinine Ratio (6-26) Glucose (70-105) mg/dL Calculated Osmolality (280-300) Lactic Acid 1.9 (0.5-2.2) mmol/L Calcium (8.6-10.3) mg/dL Total Bilirubin (0.3-1.0) mg/dL AST (13-39) Units/L ALT (7-52) Units/L Alkaline Phosphatase (34-104) Units/L Creatine Kinase (30-223) Units/L Troponin I (< 0.04) ng/mL Serum Total Protein (6.4-8.9) g/dL Albumin (3.5-5.7) g/dL Globulin (2.4-3.5) g/dL Albumin/Globulin Ratio (1.1-2.2) - Radiology Data Radiology results reviewed: Yes I reviewed the patient's radiology results. Chest X-Ray 11/10/18 02:10 IMPRESSION: Negative portable chest. D/ / Oral Purvis MD / Oral Purvis MD Interpreting Provider: Oral Purvis MD Head CT 11/10/18 02:11 IMPRESSION: 1. Small vessel chronic ischemic changes without acute hemorrhage or definite evidence for acute ischemia. 2. Suspected pituitary adenoma again identified. D/ / Oral Purvis MD / Oral Purvis MD Interpreting Provider: Oral Purvis MD Cervical Spine CT 11/10/18 02:12 IMPRESSION: No acute abnormality of the cervical spine. Multilevel degenerative changes most pronounced at C4-C5. D/ / Rigoberto Pierre / Rigoberto Pierre Interpreting Provider: Rigoberto Pierre - EKG Data EKG #1 EKG attestation: Yes I reviewed and interpreted this EKG. EKG results narrative: HR 52, rhythm sinus, axis left at -53. CA prolonged at 0.24s, QRS 0.06s. No evidence of ST elevation or depression.
[2018-11-10 03:03] LABS: Basophils % 0.5 %; Eosinophils # 0.2 K/mcL (0.0-0.6); Hematocrit 35.8 % (37.5-50.1); Hemoglobin 12.1 g/dL (12.9-16.9); Immature Granulocytes % 0.2 % (0-4); Lymphocytes % 37.3 %; Mean Corpuscular HGB Conc 33.8 g/dL (31.6-35.5); Mean Corpuscular Hemoglobin 29.7 pg (28.0-33.3); Mean Platelet Volume 10.2 fL (9.4-12.4); Monocytes # 0.6 K/mcL (0.0-1.3); Neutrophils # 4.2 K/mcL (1.6-8.9); Platelet Count 232 K/mcL (140-400); Red Blood Count 4.07 M/mcL (4.19-5.50); Red Cell Distribution Width 12.4 % (11.5-14.5)
[2018-11-10 03:08] LABS: Prothrombin Time 11.7 Seconds (9.4-12.1)
[2018-11-10 03:10] LABS: Activated Partial Thrombo Time 29.5 Seconds (26.0-36.0)
[2018-11-10 03:13] LABS: Alanine Aminotransferase 14 Units/L (7-52); Albumin 3.9 g/dL (3.5-5.7); Albumin/Globulin Ratio 1.4 (1.1-2.2); Alkaline Phosphatase 59 Units/L (34-104); Aspartate Amino Transferase 19 Units/L (13-39); BUN/Creatinine Ratio 13 (6-26); Bilirubin,Total 0.4 mg/dL (0.3-1.0); Blood Urea Nitrogen 18 mg/dL (8-23); Calcium 9.4 mg/dL (8.6-10.3); Carbon Dioxide 27 mEq/L (23-29); Chloride 100 mEq/L (98-107); Creatine Kinase 266 Units/L (30-223); Globulin 2.8 g/dL (2.4-3.5); Glucose 204 mg/dL (70-105); Osmolality,Calculated 288 (280-300); Potassium 3.6 mEq/L (3.5-5.1); Sodium 135 mEq/L (136-145); Total Protein 6.7 g/dL (6.4-8.9); Troponin I < 0.03 ng/mL (< 0.04); eGFR For Non-African Americans 50 (> 60)
--- NOTE | 2018-11-10 03:22 | Emergency Department Note ---
Disposition Clinical Impression: Altered mental status Qualifiers: Altered mental status type: unspecified Qualified Code(s): R41.82 - Altered mental status, unspecified Disposition: Admitted As Inpatient Condition: Fair [facility] Care Provider[facility] - Forms: ED Satisfaction Letter General Adult HPI - General Chief complaint: ED Syncope Stated complaint: syncope Time Seen by Provider: 11/10/18 02:10 Source: EMS Mode of arrival: EMS Limitations: altered mental status Nursing Notes Reviewed: Yes Vital Signs Reviewed: Yes - History of Present Illness Pain Scale: 0 - Related Data Home Medications Medication Instructions Recorded Confirmed Atenolol [Tenormin] 25 mg PO DAILY 09/30/17 09/30/17 Atorvastatin [Lipitor] 40 mg PO HS 09/30/17 09/30/17 Cetirizine HCl [Zyrtec] 10 mg PO DAILY PRN 09/30/17 09/30/17 Cholecalciferol (D-3) [Vitamin D] 2,000 unit PO DAILY 09/30/17 09/30/17 Dextrose [Glucose] 16 gm PO ONCE PRN 09/30/17 09/30/17 Insulin ASPART [Novolog Flexpen] 15 unit SQ TIDAC 09/30/17 09/30/17 Potassium Chloride [Klor-Con 10] 10 meq PO DAILY 09/30/17 09/30/17 Tamsulosin [Flomax] 0.4 mg PO DAILY 09/30/17 09/30/17 Allergies Allergy/AdvReac Type Severity Reaction Status Date / Time aspirin Allergy See Verified 08/23/17 23:19 Comments Past Medical History - Past Medical History Medical history: Reports: CVA, diabetes, hyperlipidemia, hypertension Psychiatric history: Reports: no psych history - Social History Smoking Status: Never smoker Smokeless Tobacco Status: No Alcohol use: Reports: none Drug use: Reports: none Physical Exam - General Limitations: altered mental status General appearance: in no apparent distress Course Vital Signs Temperature 98.1 F 11/10/18 02:12 Pulse Rate 51 11/10/18 02:12 Respiratory Rate 14 11/10/18 02:12 Blood Pressure 161/69 11/10/18 02:12 O2 Sat by Pulse Oximetry 96 11/10/18 02:12 Temperature 98.1 F 11/10/18 02:12 Pulse Rate 51 11/10/18 02:12 Respiratory Rate 14 11/10/18 02:12 Blood Pressure 161/69 11/10/18 02:12 O2 Sat by Pulse Oximetry 96 11/10/18 02:12 Oxygen Delivery Oxygen Delivery Room Air Medical Decision Making - Medical Records Medical records reviewed: Yes I reviewed the patient's medical records. - Lab Data Lab results reviewed: Yes I reviewed the patient's lab results. Result diagrams: 11/10/18 02:35 11/10/18 02:35 Lab Results 11/10/18 11/10/18 11/10/18 Range/Units 02:35 02:35 02:35 WBC 8.0 (4.3-11.1) K/mcL RBC 4.07 L (4.19-5.50) M/mcL Hgb 12.1 L (12.9-16.9) g/dL Hct 35.8 L (37.5-50.1) % MCV 88.0 (83.0-100.0) fL MCH 29.7 (28.0-33.3) pg MCHC 33.8 (31.6-35.5) g/dL RDW 12.4 (11.5-14.5) % Plt Count 232 (140-400) K/mcL MPV 10.2 (9.4-12.4) fL Immature Gran % 0.2 (0-4) % Seg Neutrophils % 52.0 % Lymphocytes % 37.3 % Monocytes % 7.0 % Eosinophils % 3.0 % Basophils % 0.5 % Neutrophils # 4.2 (1.6-8.9) K/mcL Lymphocytes # 3.0 (0.6-4.6) K/mcL Monocytes # 0.6 (0.0-1.3) K/mcL Eosinophils # 0.2 (0.0-0.6) K/mcL Basophils # 0.0 (0.0-0.2) K/mcL PT 11.7 (9.4-12.1) Seconds INR 1.0 APTT 29.5 (26.0-36.0) Seconds Sodium 135 L (136-145) mEq/L Potassium 3.6 (3.5-5.1) mEq/L Chloride 100 (98-107) mEq/L Carbon Dioxide 27 (23-29) mEq/L BUN 18 (8-23) mg/dL Creatinine 1.39 H (0.70-1.30) mg/dL Est GFR ( Amer) > 60 (> 60) Est GFR (Non-Af Amer) 50 L (> 60) BUN/Creatinine Ratio 13 (6-26) Glucose 204 H (70-105) mg/dL Calculated Osmolality 288 (280-300) Lactic Acid (0.5-2.2) mmol/L Calcium 9.4 (8.6-10.3) mg/dL Total Bilirubin 0.4 (0.3-1.0) mg/dL AST 19 (13-39) Units/L ALT 14 (7-52) Units/L Alkaline Phosphatase 59 (34-104) Units/L Creatine Kinase 266 H (30-223) Units/L Troponin I < 0.03 (< 0.04) ng/mL Serum Total Protein 6.7 (6.4-8.9) g/dL Albumin 3.9 (3.5-5.7) g/dL Globulin 2.8 (2.4-3.5) g/dL Albumin/Globulin Ratio 1.4 (1.1-2.2) 11/10/18 Range/Units 02:35 WBC (4.3-11.1) K/mcL RBC (4.19-5.50) M/mcL Hgb (12.9-16.9) g/dL Hct (37.5-50.1) % MCV (83.0-100.0) fL MCH (28.0-33.3) pg MCHC (31.6-35.5) g/dL RDW (11.5-14.5) % Plt Count (140-400) K/mcL MPV (9.4-12.4) fL Immature Gran % (0-4) % Seg Neutrophils % % Lymphocytes % % Monocytes % % Eosinophils % % Basophils % % Neutrophils # (1.6-8.9) K/mcL Lymphocytes # (0.6-4.6) K/mcL Monocytes # (0.0-1.3) K/mcL Eosinophils # (0.0-0.6) K/mcL Basophils # (0.0-0.2) K/mcL PT (9.4-12.1) Seconds INR APTT (26.0-36.0) Seconds Sodium (136-145) mEq/L Potassium (3.5-5.1) mEq/L Chloride (98-107) mEq/L Carbon Dioxide (23-29) mEq/L BUN (8-23) mg/dL Creatinine (0.70-1.30) mg/dL Est GFR ( Amer) (> 60) Est GFR (Non-Af Amer) (> 60) BUN/Creatinine Ratio (6-26) Glucose (70-105) mg/dL Calculated Osmolality (280-300) Lactic Acid 1.9 (0.5-2.2) mmol/L Calcium (8.6-10.3) mg/dL Total Bilirubin (0.3-1.0) mg/dL AST (13-39) Units/L ALT (7-52) Units/L Alkaline Phosphatase (34-104) Units/L Creatine Kinase (30-223) Units/L Troponin I (< 0.04) ng/mL Serum Total Protein (6.4-8.9) g/dL Albumin (3.5-5.7) g/dL Globulin (2.4-3.5) g/dL Albumin/Globulin Ratio (1.1-2.2) - Radiology Data Radiology results reviewed: Yes I reviewed the patient's radiology results. Chest X-Ray 11/10/18 02:10 IMPRESSION: Negative portable chest. D/ / Oral Purvis MD / Oral Purvis MD Interpreting Provider: Oral Purvis MD Head CT 11/10/18 02:11 IMPRESSION: 1. Small vessel chronic ischemic changes without acute hemorrhage or definite evidence for acute ischemia. 2. Suspected pituitary adenoma again identified. D/ / Oral Purvis MD / Oral Purvis MD Interpreting Provider: Oral Purvis MD Cervical Spine CT 11/10/18 02:12 IMPRESSION: No acute abnormality of the cervical spine. Multilevel degenerative changes most pronounced at C4-C5. D/ / Rigoberto Pierre / Rigoberto Pierre Interpreting Provider: Rigoberto Pierre - EKG Data EKG #1 EKG attestation: Yes I reviewed and interpreted this EKG. EKG results narrative: EKG shows sinus bradycardia with first-degree AV block with ventricular rate of 52. Intraventricular conduction delay. Lateral ST and T-wave changes with depression and flattening are inverted T waves in V3 through V6. Attestation Statement - Attestation Attestation: I, Bin Escalera MD, personally evaluated this patient and discussed their management with the resident physician. I reviewed the resident's note and agree with the documented findings, medical decision making, and plan of care. Patient is a 73-year-old male who presents to the emergency department by EMS for a complaint of a fall and altered mental status. EMS reports that he wipes patient heard him fall in the bathroom about 12:45 AM and found him on the bathroom floor. EMS reports that patient was confused and altered. Unable to provide any history. Last known normal is unknown. Patient denies any pain. He admits to some shortness of breath but does not appear to be short of breath. Patient is alert. He follows commands. He is oriented to person only. On examination patient is a well-developed well-nourished elderly male in no acute distress. He is alert and oriented to person only. He appears very poor. No cyanosis or diaphoresis. Head is atraumatic. Neck is supple with full range of motion. Nontender to palpation. Chest is nontender to palpation. Breath sounds are decreased but equal bilaterally with no definite rales or wheezes noted. Heart is regular with a mild bradycardia. Abdomen is soft with present bowel sounds. No apparent tenderness. No focal neurological deficits. EKG shows sinus bradycardia with first-degree AV block with ventricular rate of 52. Intraventricular conduction delay. Lateral ST and T-wave changes with depression and flattening are inverted T waves in V3 through V6. Chest x-ray negative. CT of cervical spine negative. CT of the head shows no acute abnormality. Labs reviewed. The hospitalist, Dr. Lee, was consulted and accepted admission of the patient.
[2018-11-10 04:26] LABS: Bilirubin,Urine Negative (Negative); Blood,Urine Trace (Negative); Clarity,Urine Cloudy (Clear); Color,Urine Yellow (Yellow); Glucose,Urine (UA) 100 mg/dL (Normal); Ketones,Urine Negative (Negative); Leukocyte Esterase,Urine Negative (Negative); Nitrite,Urine Negative (Negative); PH,Urine 5.5 pH Units (5.0-8.0); Protein,Urine >=1000 mg/dL (Neg-Trace); Specific Gravity,Urine 1.014 (1.010-1.025); Urobilinogen,Urine Normal (Normal)
[2018-11-10 04:35] LABS: Amorphous Sediment,Urine Many (Few); Bacteria,Urine Many per hpf (None-Few); RBC,Urine 0-3 per hpf (0-3); Squamous Epithelial Cell,Urine Many per lpf (None-Few); WBC,Urine 0-3 per hpf (0-3)
[2018-11-10] MEDS ORDERED: Ketorolac 15 MG/ML VIAL IVP PRN (05:37)
[2018-11-10] MEDS ORDERED: Ondansetron 4 MG/2 ML VIAL IVP PRN (05:37)
[2018-11-10] MEDS ORDERED: 0.9 % Sodium Chloride 1,000 ML IVC SCH (05:45)
--- NOTE | 2018-11-10 06:03 | Internal Med History&Physical ---
<Mau Terrell T - Last Filed: 11/10/18 05:47> Date of Encounter: 11/10/18 Time of Encounter: 05:25 Internal Medicine - H&P: HPI Chief complaint: Syncope Admitted From: Home Plans for Post Hospital Care: Home History of present illness: Mr. Renner is a 73 year old male pmh significant for CVA with residual broca aphasia, DM, HTN, and HLD. Hx combination of medical records and from patient as he is somewhat poor historian. He woke up and got out of bed to use the restroom ~0045 and while using the restroom he felt warm, dizzy and then had syncopal event. His thought she heard him fall and went to check on him at which she found him on the floor. He thinks he had complete loc but no reports of trauma were noted. When he gained consciousness he said he felt "numb all over" and was still somewhat dizzy. He denied diplopia, blurry vision, flashing lights, chest pain, palpitations, dyspnea, diaphoresis, N/V, headache, post ictal fatigue or confusion, loss of bowel or bladder function, oral trauma, or trauma from the fall. He did say he has had a seizure before and takes an antiepileptic medicat ion but no antiepileptics are listed on home meds currently on [facility]. His plans to bring current med list in the morning when she arrives. He has had similar presentation previously in 09/27 but was found to be hypotensive at the time. Workup within the ED was largely unremarkable, bradycardic with HR 51, BP 161/69, EKG with sinus benita with 1st degree AV block, intraventricular conduction delay, lateral depressions and inverted T waves V2-V3. CT head and neck with chronic small vessel ischemic changes but nothing acute. Labs without evidence of cause, glucose 204, troponin neg, no signs infection. Past Med Surg Social Fam HX - Past Medical History Medical history: CVA, diabetes, hyperlipidemia, hypertension Additional medical history: 2 brain tumor, cataracts Psychiatric history: no psych history - Past Surgical History Surgical History: appendectomy - Social History Smoking Status: Never smoker Smokeless Tobacco Status: No Alcohol use: none Drug use: none Internal Medicine - H&P: Meds Atenolol [Tenormin] 25 mg PO DAILY 09/30/17 [History] Atorvastatin [Lipitor] 40 mg PO HS 09/30/17 [History] Cetirizine HCl [Zyrtec] 10 mg PO DAILY PRN 09/30/17 [History] Cholecalciferol (D-3) [Vitamin D] 2,000 unit PO DAILY 09/30/17 [History] Dextrose [Glucose] 16 gm PO ONCE PRN 09/30/17 [History] Insulin ASPART [Novolog Flexpen] 15 unit SQ TIDAC 09/30/17 [History] Potassium Chloride [Klor-Con 10] 10 meq PO DAILY 09/30/17 [History] Tamsulosin [Flomax] 0.4 mg PO DAILY 09/30/17 [History] Allergy/AdvReac Type Severity Reaction Status Date / Time aspirin Allergy See Verified 08/23/17 23:19 Comments All Systems PM: A 10-system review of systems was performed and is negative for pertinent findings except as documented above in the HPI. - Constitutional Vitals: Temp Pulse Resp BP Pulse Ox 98.4 F 62 15 178/88 95 11/10/18 05:23 11/10/18 05:23 11/10/18 05:23 11/10/18 05:23 11/10/18 05:23 General appearance: Present: cooperative, A&O X 1 (person), pleasant, no acute distress, answers questions appropriately (somewhat) Exam: - - Head Head exam: Present: atraumatic, normal inspection, normocephalic - Eye Eye exam: Present: normal appearance - ENT ENT exam: Present: mucous membranes moist - Neck Neck exam general surgery: Present: supple, trachea midline - Respiratory Respiratory exam: Present: decreased breath sounds. Absent: accessory muscle use, chest wall tenderness, prolonged expiratory phase, rales, respiratory distress, rhonchi, stridor, wheezes, tachypnea - Cardiovascular Cardiovascular exam: Present: bradycardia, +S1, +S2. Absent: clicks, diastolic murmur, distant heart sounds, gallop, irregular rhythm, JVD, RRR, rubs, +S3, +S4, systolic murmur, tachycardia - GI/Abdominal GI/Abdominal exam: Present: soft, no peritoneal signs. Absent: distended, firm, guarding, rebound, rigid, tenderness - Extremities Exam Extremities exam: Present: normal capillary refill, normal inspection, warm, radial pulses palpable and symmetrical. Absent: calf tenderness, cyanotic, mottling, pedal edema, tenderness - Neurological Exam Neurological exam: Present: alert, CN II-XII intact, no focal deficits. Absent: oriented X3, facial droop, speech deficit Additional comments: broca aphasia, oriented to person - Psychiatric Psychiatric exam: Present: normal affect, normal mood - Skin Skin exam: Present: dry, intact, normal color, warm. Absent: abrasion, cyanosis, diaphoretic, erythema, excoriation, mottled, pallor, petechiae, rash, urticaria, vesicles Internal Med - H&P Results - Labs CBC & Chem 7: 11/10/18 02:35 11/10/18 02:35 Labs: Short CBC 11/10/18 Range/Units 02:35 WBC 8.0 (4.3-11.1) K/mcL Hgb 12.1 L (12.9-16.9) g/dL Hct 35.8 L (37.5-50.1) % Plt Count 232 (140-400) K/mcL Neutrophils # 4.2 (1.6-8.9) K/mcL BMP 11/10/18 02:35 Sodium 135 L Potassium 3.6 Chloride 100 Carbon Dioxide 27 BUN 18 Creatinine 1.39 H Glucose 204 H Calcium 9.4 Cardiac Enzymes 11/10/18 Range/Units 02:35 Troponin I < 0.03 (< 0.04) ng/mL Liver Function 11/10/18 Range/Units 02:35 Total Bilirubin 0.4 (0.3-1.0) mg/dL AST 19 (13-39) Units/L ALT 14 (7-52) Units/L Alkaline Phosphatase 59 (34-104) Units/L Albumin 3.9 (3.5-5.7) g/dL Urine 11/10/18 Range/Units 04:15 Urine Color Yellow (Yellow) Urine Clarity Cloudy A (Clear) Urine pH 5.5 (5.0-8.0) pH Units Ur Specific [place] 1.014 (1.010-1.025) Urine Protein >=1000 H (Neg-Trace) mg/dL Urine Glucose (UA) 100 H (Normal) mg/dL - Impressions ITS Impressions Chest X-Ray 11/10/18 02:10 IMPRESSION: Negative portable chest. D/ / Oral Purvis MD / Oral Purvis MD Interpreting Provider: Oral Purvis MD Head CT 11/10/18 02:11 IMPRESSION: 1. Small vessel chronic ischemic changes without acute hemorrhage or definite evidence for acute ischemia. 2. Suspected pituitary adenoma again identified. D/ / Oral Purvis MD / Oral Purvis MD Interpreting Provider: Oral Purvis MD Cervical Spine CT 11/10/18 02:12 IMPRESSION: No acute abnormality of the cervical spine. Multilevel degenerative changes most pronounced at C4-C5. D/ / Rigoberto Pierre / Rigoberto Pierre Interpreting Provider: Rigoberto Pierre - Assessment and plan (1) Syncope Current Visit: Yes Status: Suspected Assessment and plan: -Woke up and while using restroom, felt warm, dizzy then had syncopal event followed by "numbness all over" and continued dizziness for short time -Likely vasovagal syncope but was bradycardic on arrival so cardiogenic possible. He does take BB before bed, possible reason for benita. No evidence of aortic stenosis on exam or prior ECHO, no evidence of ACS, benign 1st degree AV block on EKG, no evidence of focal neuro deficits or imaging findings concerning for TIA/CVA, no post ictal state or bladder dysfunction/oral trauma making seizure unlikely, glucose on arrival 204, BP 161/69 on arrival -Previously worked up for similar symptoms 09/27 and nothing remarkable noted -On arrival he was bradycardic with HR 51, BP 161/69 -Baseline HR appears to be 50-60's historically -EKG sinus benita with first degree AV block, rate 52, intraventricular conduction delay, lateral ST and T wave changes with depression, inverted T waves v2-v3 -Will get orthostatics, TTE, place on tele, give some IVF, and have cardiology evaluate for possible holter/event recorder Qualifiers: Syncope type: vasovagal syncope Qualified Code(s): R55 - Syncope and collapse (2) Diabetes mellitus Current Visit: No Status: Chronic Assessment and plan: -Hx of DM with insulin use at home -Will check A1C and start ssi Qualifiers: Diabetes mellitus type: type 2 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 termite control technician use Diabetes mellitus complication status: without complication Qualified Code(s): E11.9 - Type 2 diabetes mellitus without complications; Z79.4 - equipment operator intermodal yard (current) use of insulin; Z79.4 - FDC (current) use of insulin; Z79.4 - equipment operator intermodal yard (current) use of insulin; Z79.4 - FDC (current) use of insulin (3) History of CVA (cerebrovascular accident) Current Visit: No Status: Chronic Assessment and plan: -Hx of prior CVA with residual broca aphasia -Will continue home meds when confirmed (4) DVT prophylaxis Current Visit: No Status: Acute Assessment and plan: -SQ heparin (5) Hypertension Current Visit: Yes Status: Acute Assessment and plan: -Hx of HTN -BP 161/69 on arrival -Will start home meds when confirmed Qualifiers: Hypertension type: essential hypertension Qualified Code(s): I10 - Essential (primary) hypertension - Time Spent With Patient Total time spent is greater than 50% in coordination of care (as documented) at patient's floor/unit and/or counseling patient: <Em Hines - Last Filed: 11/10/18 07:04> Date of Encounter: 11/10/18 Internal Medicine - H&P: HPI History of present illness: Mr. Renner is a 73 year old male All Systems PM: A 10-system review of systems was performed and is negative for pertinent findings except as documented above in the HPI. - Constitutional Vitals: Temp Pulse Resp BP Pulse Ox 98.4 F 62 15 178/88 95 11/10/18 05:23 11/10/18 05:23 11/10/18 05:23 11/10/18 05:23 11/10/18 05:23 Internal Med - H&P Results - Labs CBC & Chem 7: 11/10/18 02:35 11/10/18 02:35 Labs: Short CBC 11/10/18 Range/Units 02:35 WBC 8.0 (4.3-11.1) K/mcL Hgb 12.1 L (12.9-16.9) g/dL Hct 35.8 L (37.5-50.1) % Plt Count 232 (140-400) K/mcL Neutrophils # 4.2 (1.6-8.9) K/mcL BMP 11/10/18 02:35 Sodium 135 L Potassium 3.6 Chloride 100 Carbon Dioxide 27 BUN 18 Creatinine 1.39 H Glucose 204 H Calcium 9.4 Cardiac Enzymes 11/10/18 Range/Units 02:35 Troponin I < 0.03 (< 0.04) ng/mL Liver Function 11/10/18 Range/Units 02:35 Total Bilirubin 0.4 (0.3-1.0) mg/dL AST 19 (13-39) Units/L ALT 14 (7-52) Units/L Alkaline Phosphatase 59 (34-104) Units/L Albumin 3.9 (3.5-5.7) g/dL Urine 11/10/18 Range/Units 04:15 Urine Color Yellow (Yellow) Urine Clarity Cloudy A (Clear) Urine pH 5.5 (5.0-8.0) pH Units Ur Specific [place] 1.014 (1.010-1.025) Urine Protein >=1000 H (Neg-Trace) mg/dL Urine Glucose (UA) 100 H (Normal) mg/dL - Impressions ITS Impressions Chest X-Ray 11/10/18 02:10 IMPRESSION: Negative portable chest. D/ / Oral Purvis MD / Oral Purvis MD Interpreting Provider: Oral Purvis MD Head CT 11/10/18 02:11 IMPRESSION: 1. Small vessel chronic ischemic changes without acute hemorrhage or definite evidence for acute ischemia. 2. Suspected pituitary adenoma again identified. D/ / Oral Purvis MD / Oral Purvis MD Interpreting Provider: Oral Purvis MD Cervical Spine CT 11/10/18 02:12 IMPRESSION: No acute abnormality of the cervical spine. Multilevel degenerative changes most pronounced at C4-C5. 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 skilled nursing use Diabetes mellitus complication status: without complication Qualified Code(s): E11.9 - Type 2 diabetes mellitus without complications; Z79.4 - FDC (current) use of insulin; Z79.4 - equipment operator intermodal yard (current) use of insulin; Z79.4 - equipment operator intermodal yard (current) use of insulin; Z79.4 - FDC (current) use of insulin (2) History of CVA (cerebrovascular accident) Current Visit: No Status: Chronic (3) DVT prophylaxis Current Visit: No Status: Acute (4) Syncope Current Visit: Yes Status: Suspected Qualifiers: Syncope type: vasovagal syncope Qualified Code(s): R55 - Syncope and collapse (5) Hypertension Current Visit: Yes Status: Acute Qualifiers: Hypertension type: essential hypertension Qualified Code(s): I10 - Essential (primary) hypertension - Time Spent With Patient Total time spent is greater than 50% in coordination of care (as documented) at patient's floor/unit and/or counseling patient: - Attending Attestation I performed a history and physical examination of the patient and discussed his management with the resident. I reviewed the resident's note and agree with the assessment and plan of care. In short patient is a 73-year-old male with a past medical history significant for CVA with residual expressive aphasia, diabetes, hypertension and hyperlipidemia who presents with syncopal episode around 1 AM this morning of patient arose from bed to use the bathroom. Patient reports feeling warm just prior to his syncopal event. Patient uncertain if he lost consciousness. Was found by his on the floor after she had heard the noise coming from the bathroom. Patient does report history of a seizure episode in the past, however, no reports of a postictal confusion or reports of loss of bowel or bladder control. Arrival patient was hemodynamically stable. His lab workup was relatively unremarkable. Initial EKG does show sinus bradycardia with a heart rate in the low 50s and new T-wave inversions in lateral leads though patient denies any chest pain at the time. Initial troponin was negative. Etiology of patient's syncope most likely vasovagal, however, given EKG findings cannot rule out cardiogenic syncope at this time. Recommend echocardiogram and appreciate cardiology input. We will continue pat ient on telemetry and trend troponin.
[2018-11-10] MEDS ORDERED: *HR* Dextrose 50 % in Water (Syg) 50 ML SYRINGE IVP PRN (06:13)
[2018-11-10] MEDS ORDERED: D5% in Water 1,000 ML IVC PRN (06:13)
[2018-11-10] MEDS ORDERED: Dextrose Gel 15 GM/37.5 ML TUBE PO PRN ×2 (06:13)
[2018-11-10] MEDS: *HR* Heparin 5,000 UNIT/ML VIAL SQ SCH ×3 (06:49→20:10)
[2018-11-10] MEDS: Insulin LISPRO 300 UNITS/3 ML VIAL SQ SCH ×3 (07:00→18:00)
[2018-11-10 07:58] LABS: Phosphorous 3.8 mg/dL (2.7-4.5)
[2018-11-10 09:13] LABS: Estimated Average Glucose 246 mg/dl; Hemoglobin A1C 10.2 %
--- NOTE | 2018-11-10 11:18 | Cardiology Consult Note ---
Addendum entered and electronically signed by Venkat Gutierrez MD 11/10/18 13:55: I examined this patient and my medical decision-making was reviewed with the AMBULANCE MECHANIC. I agree with the documented findings, disposition and treatment plan as described except to the extent set forth below. A/P: Orthostatic hypotension Syncope likely 2/2 orthostatic hypotension Mild HANY possibly secondary to dehydration Continue hydration. TTE pending. Thank you for allowing me to care for your patient and for the consult, Venkat Gutierrez MD [facility] Original Note: Date of Encounter: 11/10/18 Time of Encounter: 10:45 Assessment and Plan (1) Syncope Current Visit: Yes Status: Suspected Per cardiology: -Admitted after possible syncopal event at home, unsure if patient lost consciousness. -ECG with SB. -Telemetry reviewed with average HR 56, SB. -Denies current dizziness, lightheadedness. -TTE pending. -Of note, had similar presentation with previous HANY. -TTE pending. -See orthostatic hypotension. Qualifiers: Syncope type: vasovagal syncope Qualified Code(s): R55 - Syncope and collapse (2) Orthostatic hypotension Current Visit: Yes Status: Acute Per cardiology: -Admitted with possible syncope, ?vasovagal. -Orthostatic vital signs positive, BP lying 175 systolic, 111 systolic standing. -Mild HANY noted per labs, ? UTI. -IV fluids running per primary service. -TTE pending. -Suspect event vasovagal related to dehydration, ?UTI. Encouraged patient to stay well hydrated. -If no significant findings per TTE, anticipate cardiology sign off. (3) HANY (acute kidney injury) Current Visit: No Status: Acute Per cardiology: -Mild HANY noted. -Management per primary service. Discussion w patient/family: The assessment and plan as outlined above was discussed with the patient who expressed understanding and agreement. All questions were answered. Thank you for involving us in the care of your patient. Please call with any questions. Discussed and reviewed with . History of Present Illness Consult date: 11/10/18 Requesting physician: Mau Terrell Consult reason: syncope Chief complaint: fall History of present illness: Mr. Renner is a 73 year old male with a relevant past medical history of CVA, residual aphasia, DM, HTN, and HLD who presented to [facility] after a fall at home. Patient states he is unsure if he lost consciousness or not. No family at bedside during my assessment. Patient states that he got out of bed to use the bathroom, felt dizzy, and fell. Again, patient is unsure if he lost consciou sness or not. Per notes, noted patient to be confused when she reached him. Patient denies loss of bowel or bladder. Currently states he is at his normal state of health. Past Med Surg Social Fam HX - Past Medical History Attestation: Yes The following information was validated with the patient. Source: patient, old records reviewed Medical history: CVA, diabetes, hyperlipidemia, hypertension Additional medical history: 2 brain tumor, cataracts Psychiatric history: no psych history - Past Surgical History Surgical History: appendectomy - Social History Smoking Status: Never smoker Smokeless Tobacco Status: No Alcohol use: none Drug use: none Medications and Allergies Atenolol [Tenormin] 25 mg PO DAILY 09/30/17 [History] Atorvastatin [Lipitor] 40 mg PO HS 09/30/17 [History] Cetirizine HCl [Zyrtec] 10 mg PO DAILY PRN 09/30/17 [History] Cholecalciferol (D-3) [Vitamin D] 2,000 unit PO DAILY 09/30/17 [History] Dextrose [Glucose] 16 gm PO ONCE PRN 09/30/17 [History] Insulin ASPART [Novolog Flexpen] 15 unit SQ TIDAC 09/30/17 [History] Potassium Chloride [Klor-Con 10] 10 meq PO DAILY 09/30/17 [History] Tamsulosin [Flomax] 0.4 mg PO DAILY 09/30/17 [History] Allergy/AdvReac Type Severity Reaction Status Date / Time aspirin Allergy See Verified 08/23/17 23:19 Comments All Systems Review: The remainder of the systems were reviewed and are negative - Cardiovascular Cardiovascular: as per HPI, syncope (? possible syncope) Physical Examination Vital Signs Temperature 98.1 F 11/10/18 02:12 Pulse Rate 51 11/10/18 02:12 Respiratory Rate 14 11/10/18 02:12 Blood Pressure 161/69 11/10/18 02:12 O2 Sat by Pulse Oximetry 96 11/10/18 02:12 Temperature 98.4 F 11/10/18 05:23 Pulse Rate 51 11/10/18 07:00 Respiratory Rate 14 11/10/18 06:53 Blood Pressure 175/90 11/10/18 07:00 O2 Sat by Pulse Oximetry 96 11/10/18 06:53 Oxygen Delivery Oxygen Delivery Room Air General: Conversant, No Apparent Distress HEENT: Atraumatic, Normocephaly, Mucus Membranes Moist Neck: No JVD, Normal carotid pulses Cardiac: Reg Rate and Rhythm, Normal S1 and S2, No Murmur Lungs: Normal Breath Sounds, No Wheeze, Rales, Rhonchi Neuro: Alert and responsive, No focal deficits noted, Other (Speach slow. ) Abdomen: Soft, Non-Tender Skin: No rashes noted on visualized skin Musculoskeletal: No Chest Wall Tenderness Extremities: No Clubbing, No Cyanosis, No Edema, Normal Pulses Results 11/10/18 02:35 11/10/18 02:35 Lab Results Impressions Chest X-Ray 11/10/18 02:10 IMPRESSION: Negative portable chest. D/ / Oral Purvis MD / Oral Purvis MD Interpreting Provider: Oral Purvis MD Head CT 11/10/18 02:11 IMPRESSION: 1. Small vessel chronic ischemic changes without acute hemorrhage or definite evidence for acute ischemia. 2. Suspected pituitary adenoma again identified. D/ / Oral Purvis MD / Oral Purvis MD Interpreting Provider: Oral Purvis MD Cervical Spine CT 11/10/18 02:12 IMPRESSION: No acute abnormality of the cervical spine. Multilevel degenerative changes most pronounced at C4-C5. D/ / Rigoberto Pierre / Rigoberto Pierre Interpreting Provider: Rigoberto Pierre Active Medications Dextrose/Water (Dextrose 50% (Syg)) 25 ml IVP AD PRN PRN Reason: Hypoglycemia Stop: 05/12/19 06:14 Glucagon (Glucagen) 1 mg IM ONCE PRN PRN Reason: Hypoglycemia Stop: 05/12/19 06:14 Glucose (Gluctose) 15 gm PO ONCE PRN PRN Reason: Hypoglycemia Stop: 05/12/19 06:14 Glucose (Gluctose) 30 gm PO ONCE PRN PRN Reason: Hypoglycemia Stop: 05/12/19 06:14 Heparin Sodium (Porcine) (Heparin) 5,000 unit SQ Q8HCO [facility] Stop: 05/12/19 06:46 Last Admin: 11/10/18 06:49 Dose: 5,000 unit Sodium Chloride (0.9 % Sodium Chloride) 1,000 mls @ 125 mls/hr IVC .Q8H JAE Stop: 11/10/18 13:44 Last Admin: 11/10/18 06:49 Dose: 125 mls/hr Dextrose (Dextrose 5%) 1,000 mls @ 100 mls/hr IVC .Q10H PRN PRN Reason: HYPOGLYCEMIA Stop: 05/12/19 06:14 Insulin Human Lispro (Humalog) 0 units SQ Q6HR [facility]; Protocol Stop: 05/12/19 06:14 Last Admin: 11/10/18 07:00 Dose: 4 units Ketorolac Tromethamine (Toradol) 10 mg IVP Q6HR PRN PRN Reason: mild to moderate pain Stop: 11/15/18 05:38 Ondansetron HCl (Zofran) 4 mg IVP Q8HR PRN PRN Reason: Nausea And Vomiting Stop: 05/12/19 05:38 Laboratory Tests 10/02/17 11/10/18 11/10/18 04:50 02:35 02:35 Hgb 12.1 L Creatinine 1.18 1.39 H Troponin I < 0.03 11/10/18 08:50 Hgb Creatinine Troponin I < 0.03 - Imaging and Cardiology Chest Xray: report reviewed Echo: pending, report reviewed - EKG Interpretation EKG results cardiology: personally reviewed (ECG with SB, HR 59. First degree AV block noted.), other (Telemetry reviewed with average HR previous 12 hours noted to be 56, SB. PVCs and PACs noted.) Consult Discharge Plan - Plan [facility]errals: [facility] Care Provider[facility] -
[2018-11-11] MEDS: *HR* Heparin 5,000 UNIT/ML VIAL SQ SCH (05:45)
[2018-11-11 06:22] LABS: BUN/Creatinine Ratio 14 (6-26); Blood Urea Nitrogen 20 mg/dL (8-23); Carbon Dioxide 27 mEq/L (23-29); Chloride 102 mEq/L (98-107); Glucose 208 mg/dL (70-105); Osmolality,Calculated 293 (280-300); Potassium 3.7 mEq/L (3.5-5.1); Sodium 137 mEq/L (136-145); eGFR For Non-African Americans 50 (> 60)
[2018-11-11 07:22] VITALS: BP 170/88
[2018-11-11] MEDS: Insulin LISPRO 300 UNITS/3 ML VIAL SQ SCH (08:30)
--- NOTE | 2018-11-11 09:36 | Electrocardiograph Report ---
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
--- NOTE | 2018-11-11 10:44 | Discharge Summary ---
Orders not resulted at time of discharge: Pending orders 11/10/18 06:07 Culture,Blood [] Stat Date of Encounter: 11/11/18 Time of Encounter: 10:42 - Discharge Diagnosis (1) Syncope Priority: Primary Status: Acute Qualifiers: Syncope type: vasovagal syncope Qualified Code(s): R55 - Syncope and collapse (2) Orthostatic hypotension Priority: Primary Status: Acute (3) Diabetes mellitus Priority: Secondary Status: Chronic Qualifiers: Diabetes mellitus type: type 2 Diabetes mellitus penitentiary insulin use: with intermediate card tender use Diabetes mellitus complication status: without complication Qualified Code(s): E11.9 - Type 2 diabetes mellitus without complications; 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 We admitted him shortly after he had experienced the syncopal or near syncopal episode at home. He was found on the floor by his ; did not get any significant injuries. He remembers being dizzy/lightheaded and having some sweating before the fall. He did not have any similar episodes before. EKG and her troponin was negative. Telemetry did not show any particular abnormalities. He says symptoms of mild dizziness/lightheadedness subsided after giving him IV fluids. His creatinine at admission was 1.39; 1.19 in September 2017. We did not notice any significant hypoglycemia or hyperglycemia during this hospitalization. He resumed normal ambulation before discharging him home. CONDITION AT DISCHARGE: He feels good. Denies chest pain and difficulty breathing. He is on room are oxygen. Denies abdominal pain, nausea and vomiting. He has normal urination. Skin: Free of rash and discoloration. Respiratory: Normal breath sounds with no crackles and wheezes bilaterally. CV: Heart is regular with no gallop or murmur. GI: Abdomen is flat and soft with no palpable mass or visceromegaly. Neuro exam: There is no focal deficits. Normal speech, swallowing and gait. SEE DISCHARGE ORDERS/MEDICATIONS I encouraged him to drink 3-4 weeks of fluid per day. Discharge discussed with: patient, family, case management - Time Spent with Patient Total time spent providing and/or coordinating discharge services: Greater than 30 minutes (35 minutes...) - Discharge Medications Prescriptions: Potassium Chloride [Klor-Con 10] 10 meq PO BID #60 tablet.er Home Medications: Atorvastatin [Lipitor] 40 mg PO HS 09/30/17 [History] Cetirizine HCl [Zyrtec] 10 mg PO DAILY PRN 09/30/17 [History] Cholecalciferol (D-3) [Vitamin D] 2,000 unit PO DAILY 09/30/17 [History] Insulin ASPART [Novolog Flexpen] 15 unit SQ TIDAC 09/30/17 [History] Tamsulosin [Flomax] 0.4 mg PO DAILY 09/30/17 [History] Potassium Chloride [Klor-Con 10] 10 meq PO BID #60 tablet.er 11/11/18 [Rx] Allergies/Adverse Reactions: Allergy/AdvReac Type Severity Reaction Status Date / Time aspirin Allergy See Verified 08/23/17 23:19 Comments Date of admission: 11/10/18 04:20 Primary care physician: PCP [facility] Discharging clinician: Andrew Contreras Anticipated date of discharge: 11/11/18 - Constitutional Vitals: Temp Pulse Resp BP Pulse Ox 98.2 F 51 15 170/88 97 11/11/18 07:16 11/11/18 07:16 11/11/18 07:16 11/11/18 07:16 11/11/18 07:16 General appearance: Present: cooperative, A&O X 3, no acute distress, answers questions appropriately (somewhat) Exam: xx - Patient Status Disposition: Home, Self-Care Condition: Fair - Discharge Instructions Instructions: Potassium Chloride (By mouth), Syncope (DC) Follow Up With: [facility],PCP [Primary Care Provider] - 11/19/18 1:00 pm Additional Instructions: THE PATIENT WAS ADVISED TO DRINK 3-4 PINTS OF FLUIDS DAILY... Please follow [facility] with your [facility] to get home health set up. Follow-up appointments: If there is not an appointment listed below, please call your physician and schedule a follow-up appointment. If you have congestive heart failure and your symptoms return, make an appointment with your physician. Medication List: Carry an up to date list of medications you are taking at all time. We have given you an updated medication list including any new medications that you have been prescribed. Please provide that list to your primary provider Symptoms: If your condition changes or you experience any of the following symptoms, notify your physician immediately: Unusual or worsening pain, fever, persistent nausea and vomiting, bleeding, increase in swelling (especially in your legs), sudden weight gain, extreme dizziness, chest pain, increased drainage or redness from a wound or incision. Go to the emergency department if you experience a problem with breathing. Weights: If you have a history of swelling or shortness of breath, weigh yourself daily and notify your physician if you have a weight gain of two or more pounds in one day or 5 or more pounds in a week. If you experience any of the warning signs for stroke: Sudden numbness or weakness of the face, arm or leg; especially on one side of the body, sudden confusion, trouble speaking or understanding, sudden trouble seeing in one or both eyes, sudden trouble walking, dizziness, loss of balance or coordination, sudden sever headache with no cause; Call 911 or go to the emergency room. Stroke is a medical emergency. Some risk factors for stroke: Age, cigarette smoking, diabetes, excessive alcohol consumption, family history, high blood pressure, overweight, physical inactivity, prior stroke, heart attack, diagnosis of carotid artery stenosis or other artery disease. If you smoke, STOP: Smoking or tobacco use significantly increases your risk of heart and lung disease. Your chance of disease greatly increases if you continue to smoke. For more information, call the [place] tobacco quit line for smoking cessation 4-788-TTKA-NOW ( ) - Diet and Activity Activity: increase activity as tolerated Diet: diabetic diet - VTE Deep Vein Thrombosis/Pulmonary Embolism Present on Admission: No
== END 2018-11-11 12:22 | disposition home or self-care (01) ==
LOC: EMEROOARM 02:05 → 3BNU 02:05 → SUATTDRO 04:20 → 3BNU 05:01
PROVIDERS: ADMIT Internal Medicine; ATTEND Internal Medicine

== ENCOUNTER 2019-04-14 22:43 | Inpatient (IN) ==
[2019-04-14] MEDS ORDERED: 0.9 % Sodium Chloride 1,000 ML IVC ONE (22:52)
--- NOTE | 2019-04-14 23:49 | Emergency Department Note ---
Disposition Clinical Impression: Fever of unknown origin Altered mental status Qualifiers: Altered mental status type: unspecified Qualified Code(s): R41.82 - Altered m ental status, unspecified Disposition: Admitted As Inpatient Condition: Fair [facility]Primary Care Provider[facility] - Forms: ED Satisfaction Letter Time of Disposition: 02:08 Altered Mental Status HPI - General Chief Complaint: ED Altered Mental Status Stated Complaint: AMS Time Seen by Provider: 04/14/19 22:44 Source: EMS Mode of arrival: ambulatory Limitations: altered mental status Nursing Notes Reviewed: Yes Vital Signs Reviewed: Yes - History of Present Illness HPI Narrative: 74-year-old male presents to the emergency department for altered mental status. They say he has not been acting normal. He does have history of stroke is currently recovering at home and doing rehabilitation at home for right-sided deficits. They said that he has not been his normal self over the last day the last known well was yesterday. Status seems more confused Karoly talk to as much and is slow to answer questions. They have not noticed any cough or congestion or any other symptoms. Patient does not have any pain anywhere. He does not note any dysuria. He has not noted any constipation or diarrhea. - Related Data Home Medications Medication Instructions Recorded Confirmed Atorvastatin [Lipitor] 40 mg PO HS 09/30/17 09/30/17 Cetirizine HCl [Zyrtec] 10 mg PO DAILY PRN 09/30/17 09/30/17 Cholecalciferol (D-3) [Vitamin D] 2,000 unit PO DAILY 09/30/17 09/30/17 Insulin ASPART [Novolog Flexpen] 15 unit SQ TIDAC 09/30/17 09/30/17 Tamsulosin [Flomax] 0.4 mg PO DAILY 09/30/17 09/30/17 Previous Rx's Medication Instructions Recorded Potassium Chloride [Klor-Con 10] 10 meq PO BID #60 tablet.er 11/11/18 Allergies Allergy/AdvReac Type Severity Reaction Status Date / Time aspirin Allergy See Verified 04/14/19 22:55 Comments All systems ED: reviewed and negative except as stated. Review of Systems: As Per HPI Past Medical History - Past Medical History Attestation: Yes The following information was validated with the patient. Source: patient Medical history: Reports: CVA, diabetes, hyperlipidemia, hypertension Surgical history: Reports: appendectomy Psychiatric history: Reports: no psych history - Social History Smoking Status: Never smoker Smokeless Tobacco Status: No Alcohol use: Reports: none Drug use: Reports: none Physical Exam - General Limitations: altered mental status General appearance: alert - Head Head exam: atraumatic, normocephalic, normal inspection - Eye Eye exam: Present: normal appearance, PERRL, EOMI - ENT ENT exam: normal exam, normal oropharynx, mucous membranes moist - Neck Neck exam: Present: normal inspection, full ROM, trachea midline - Chest Chest inspection: Present: normal inspection, symmetric chest wall rise - Respiratory Respiratory exam: Present: normal lung sounds bilaterally. Absent: respiratory distress, wheezes, stridor, accessory muscle use, prolonged expiratory phase - Cardiovascular Cardiovascular exam: Present: regular rate, normal rhythm, normal heart sounds - Abdominal Exam Abdominal exam: Present: soft, Non-Tender, normal bowel sounds. Absent: tenderness, distention, guarding, rebound, rigidity - Extremities Exam Extremities exam: Present: normal inspection, full ROM. Absent: tenderness, pedal edema - Back Exam Back exam: Present: normal inspection, full ROM. Absent: tenderness - Neurological Exam Neurological exam: Present: alert - Expanded Neurological Exam Patient oriented to: Present: person. Absent: place, time Speech: Present: fluid speech Cranial nerves: EOM function (II, III, IV, ): Normal, facial sensation (V): Normal, facial palsy (VII): Normal, spinal accessory function (XI): Normal, tongue deviation (XII): Normal Motor strength - LUE: 4/5 Motor strength - RUE: 3/5 Motor strength - LLE: 4/5 Motor strength - RLE: 3/5 Upper motor neuron exam: corrine neglect: Absent bilaterally, pronator drift: Absen t bilaterally Sensory exam upper extremity: light touch: Normal Sensory exam lower extremity: light touch: Normal Coma Scale Eye Opening: Spontaneous Coma Scale Motor Response: Obeys Commands Coma Scale Verbal Response: Confused Coma Scale Total: 14 - Skin Skin exam: Present: warm, dry, intact, normal color Course Course Narrative: Patient does not meet sepsis or severe sepsis or septic shock criteria. He only has a fever. We will do a workup looking for possible UTI or pneumonia we will get chest x-ray EKG BMP and urinalysis via straight catheter as well as getting lactate. We will give him 1 L of IV fluids. Patient okay with this plan. We will also get a head CT due to the altered mental status. Disposition pending results most likely will be admission. Vital Signs Temperature 101.8 F H 04/14/19 22:48 Pulse Rate 86 04/14/19 22:48 Respiratory Rate 16 04/14/19 22:48 Blood Pressure 154/77 04/14/19 22:48 O2 Sat by Pulse Oximetry 98 04/14/19 22:48 Temperature 101.8 F H 04/14/19 22:48 Pulse Rate 88 04/15/19 01:00 Respiratory Rate 18 04/15/19 01:00 Blood Pressure 124/78 04/15/19 01:00 O2 Sat by Pulse Oximetry 100 04/15/19 01:00 Oxygen Delivery Oxygen Delivery Nasal Cannula Procedures - Lumbar Puncture Consent Obtained: written consent Time Out Performed: Yes Patient Position: upright Skin Prep: Povidone-Iodine 1% Local Anesthetic: lidocaine 1% Amount of anesthesia used (mL): 3 Spinal Needle Gauge: 20G Interspace Used: L4-L5 Fluid Initially Obtained: clear Complications: none Altered Mental Status - MDM Narrative Medical decision making narrative: 74-year-old male presents to the emergency department for altered mental status. Did have a fever we do not have a source at this time. We did do a lumbar puncture which did look clear on exam Gram stain is still pending at this time. But we prophylactically treated him with 2 g Rocephin, 2 g ampicillin and vancomycin. Patient's chest x-ray had no signs of pneumonia. Urinalysis had no signs of UTI this could all be secondary to viral. But due to him being altered where he is unable to tell you everything that any questions you ask including what day of the week is where he is and his name or family says he normally does know that. Patient was given Tylenol for his fever. Patient also received IV fluids. Otherwise patient is stable at this time. I do feel that he needs to be admitted and family also agrees. I spoke with Dr. Correia who agreed to admit the patient to their service. Patient is admitted in stable condition. Chest X-Ray 04/15/19 00:40 IMPRESSION: Negative portable chest. D/ / Oral Purvis MD / Oral Purvis MD Interpreting Provider: Oral Purvis MD Head CT 04/15/19 22:54 IMPRESSION: Small vessel chronic ischemic changes without acute hemorrhage or definite evidence for acute ischemia. Pituitary adenoma and right middle cranial fossa meningioma again identified. D/ / Oral Purvis MD / Oral Purvis MD Interpreting Provider: Oral Purvis MD - Medical Records Medical records reviewed: Yes I reviewed the patient's medical records. - Lab Data Lab results reviewed: Yes I reviewed the patient's lab results. Result diagrams: 04/14/19 23:35 04/14/19 23:35 Lab Results 04/14/19 04/14/19 04/14/19 Range/Units 23:35 23:35 23:35 WBC 8.2 (4.3-11.1) K/mcL RBC 3.73 L (4.19-5.50) M/mcL Hgb 11.3 L (12.9-16.9) g/dL Hct 33.7 L (37.5-50.1) % MCV 90.3 (83.0-100.0) fL MCH 30.3 (28.0-33.3) pg MCHC 33.5 (31.6-35.5) g/dL RDW 12.6 (11.5-14.5) % Plt Count 179 (140-400) K/mcL MPV 9.9 (9.4-12.4) fL Immature Gran % 0.2 (0-4) % Seg Neutrophils % 79.1 % Lymphocytes % 13.6 % Monocytes % 6.5 % Eosinophils % 0.2 % Basophils % 0.4 % Neutrophils # 6.5 (1.6-8.9) K/mcL Lymphocytes # 1.1 (0.6-4.6) K/mcL Monocytes # 0.5 (0.0-1.3) K/mcL Eosinophils # 0.0 (0.0-0.6) K/mcL Basophils # 0.0 (0.0-0.2) K/mcL PT 13.0 H (9.4-12.1) Seconds INR 1.1 APTT 31.3 (26.0-36.0) Seconds Sodium 133 L (136-145) mEq/L Potassium 3.9 (3.5-5.1) mEq/L Chloride 98 (98-107) mEq/L Carbon Dioxide 25 (23-29) mEq/L BUN 17 (8-23) mg/dL Creatinine 1.43 H (0.70-1.30) mg/dL Est GFR ( Amer) 58 L (> 60) Est GFR (Non-Af Amer) 48 L (> 60) BUN/Creatinine Ratio 12 (6-26) Glucose 242 H (70-105) mg/dL Calculated Osmolality 286 (280-300) Lactic Acid (0.5-2.2) mmol/L Calcium 8.8 (8.6-10.3) mg/dL Phosphorus 3.7 (2.7-4.5) mg/dL Magnesium 1.8 (1.6-2.6) mg/dL Total Bilirubin 0.6 (0.3-1.0) mg/dL Direct Bilirubin 0.1 (0.0-0.2) mg/dL Indirect Bilirubin 0.5 (0.0-1.2) mg/dL AST 19 (13-39) Units/L ALT 12 (7-52) Units/L Alkaline Phosphatase 56 (34-104) Units/L Troponin I 0.03 (< 0.04) ng/mL Serum Total Protein 6.3 L (6.4-8.9) g/dL Albumin 3.9 (3.5-5.7) g/dL Globulin 2.4 (2.4-3.5) g/dL Albumin/Globulin Ratio 1.6 (1.1-2.2) Procalcitonin (0.00-0.15) ng/mL Urine Color (Yellow) Urine Clarity (Clear) Urine pH (5.0-8.0) pH Units Ur Specific [place] (1.010-1.025) Urine Protein (Neg-Trace) mg/dL Urine Glucose (UA) (Normal) mg/dL Urine Ketones (Negative) mg/dL Urine Blood (Negative) Urine Nitrite (Negative) Urine Bilirubin (Negative) Urine Urobilinogen (Normal) mg/dL Ur Leukocyte Esterase (Negative) Urine Microscopic RBC (0-3) per hpf Urine Microscopic WBC (0-3) per hpf Ur Squamous Epith Cells (None-Few) per lpf Urine Bacteria (None-Few) per hpf Hyaline Casts (None-Few) per lpf Ur Culture Indicated? (NO) CSF Volume mL CSF Appearance (Clear) CSF Color (Colorless) CSF RBC (0.000 - 0.002) M/mcL CSF Tot Nucleated Cells (0-5) TNC/mcL 04/14/19 04/14/19 04/14/19 Range/Units 23:35 23:35 23:54 WBC (4.3-11.1) K/mcL RBC (4.19-5.50) M/mcL Hgb (12.9-16.9) g/dL Hct (37.5-50.1) % MCV (83.0-100.0) fL MCH (28.0-33.3) pg MCHC (31.6-35.5) g/dL RDW (11.5-14.5) % Plt Count (140-400) K/mcL MPV (9.4-12.4) fL Immature Gran % (0-4) % Seg Neutrophils % % Lymphocytes % % Monocytes % % Eosinophils % % Basophils % % Neutrophils # (1.6-8.9) K/mcL Lymphocytes # (0.6-4.6) K/mcL Monocytes # (0.0-1.3) K/mcL Eosinophils # (0.0-0.6) K/mcL Basophils # (0.0-0.2) K/mcL PT (9.4-12.1) Seconds INR APTT (26.0-36.0) Seconds Sodium (136-145) mEq/L Potassium (3.5-5.1) mEq/L Chloride (98-107) mEq/L Carbon Dioxide (23-29) mEq/L BUN (8-23) mg/dL Creatinine (0.70-1.30) mg/dL Est GFR ( Amer) (> 60) Est GFR (Non-Af Amer) (> 60) BUN/Creatinine Ratio (6-26) Glucose (70-105) mg/dL Calculated Osmolality (280-300) Lactic Acid 2.0 (0.5-2.2) mmol/L Calcium (8.6-10.3) mg/dL Phosphorus (2.7-4.5) mg/dL Magnesium (1.6-2.6) mg/dL Total Bilirubin (0.3-1.0) mg/dL Direct Bilirubin (0.0-0.2) mg/dL Indirect Bilirubin (0.0-1.2) mg/dL AST (13-39) Units/L ALT (7-52) Units/L Alkaline Phosphatase (34-104) Units/L Troponin I (< 0.04) ng/mL Serum Total Protein (6.4-8.9) g/dL Albumin (3.5-5.7) g/dL Globulin (2.4-3.5) g/dL Albumin/Globulin Ratio (1.1-2.2) Procalcitonin 0.20 H (0.00-0.15) ng/mL Urine Color Yellow (Yellow) Urine Clarity Clear (Clear) Urine pH 6.0 (5.0-8.0) pH Units Ur Specific [place] 1.019 (1.010-1.025) Urine Protein >=300 H (Neg-Trace) mg/dL Urine Glucose (UA) 100 H (Normal) mg/dL Urine Ketones Negative (Negative) mg/dL Urine Blood Trace H (Negative) Urine Nitrite Negative (Negative) Urine Bilirubin Negative (Negative) Urine Urobilinogen Normal (Normal) mg/dL Ur Leukocyte Esterase Negative (Negative) Urine Microscopic RBC 3-5 H (0-3) per hpf Urine Microscopic WBC 3-5 H (0-3) per hpf Ur Squamous Epith Cells Moderate H (None-Few) per lpf Urine Bacteria None Seen (None-Few) per hpf Hyaline Casts None Seen (None-Few) per lpf Ur Culture Indicated? NO (NO) CSF Volume mL CSF Appearance (Clear) CSF Color (Colorless) CSF RBC (0.000 - 0.002) M/mcL CSF Tot Nucleated Cells (0-5) TNC/mcL 04/15/19 Range/Units 01:15 WBC (4.3-11.1) K/mcL RBC (4.19-5.50) M/mcL Hgb (12.9-16.9) g/dL Hct (37.5-50.1) % MCV (83.0-100.0) fL MCH (28.0-33.3) pg MCHC (31.6-35.5) g/dL RDW (11.5-14.5) % Plt Count (140-400) K/mcL MPV (9.4-12.4) fL Immature Gran % (0-4) % Seg Neutrophils % % Lymphocytes % % Monocytes % % Eosinophils % % Basophils % % Neutrophils # (1.6-8.9) K/mcL Lymphocytes # (0.6-4.6) K/mcL Monocytes # (0.0-1.3) K/mcL Eosinophils # (0.0-0.6) K/mcL Basophils # (0.0-0.2) K/mcL PT (9.4-12.1) Seconds INR APTT (26.0-36.0) Seconds Sodium (136-145) mEq/L Potassium (3.5-5.1) mEq/L Chloride (98-107) mEq/L Carbon Dioxide (23-29) mEq/L BUN (8-23) mg/dL Creatinine (0.70-1.30) mg/dL Est GFR ( Amer) (> 60) Est GFR (Non-Af Amer) (> 60) BUN/Creatinine Ratio (6-26) Glucose (70-105) mg/dL Calculated Osmolality (280-300) Lactic Acid (0.5-2.2) mmol/L Calcium (8.6-10.3) mg/dL Phosphorus (2.7-4.5) mg/dL Magnesium (1.6-2.6) mg/dL Total Bilirubin (0.3-1.0) mg/dL Direct Bilirubin (0.0-0.2) mg/dL Indirect Bilirubin (0.0-1.2) mg/dL AST (13-39) Units/L ALT (7-52) Units/L Alkaline Phosphatase (34-104) Units/L Troponin I (< 0.04) ng/mL Serum Total Protein (6.4-8.9) g/dL Albumin (3.5-5.7) g/dL Globulin (2.4-3.5) g/dL Albumin/Globulin Ratio (1.1-2.2) Procalcitonin (0.00-0.15) ng/mL Urine Color (Yellow) Urine Clarity (Clear) Urine pH (5.0-8.0) pH Units Ur Specific [place] (1.010-1.025) Urine Protein (Neg-Trace) mg/dL Urine Glucose (UA) (Normal) mg/dL Urine Ketones (Negative) mg/dL Urine Blood (Negative) Urine Nitrite (Negative) Urine Bilirubin (Negative) Urine Urobilinogen (Normal) mg/dL Ur Leukocyte Esterase (Negative) Urine Microscopic RBC (0-3) per hpf Urine Microscopic WBC (0-3) per hpf Ur Squamous Epith Cells (None-Few) per lpf Urine Bacteria (None-Few) per hpf Hyaline Casts (None-Few) per lpf Ur Culture Indicated? (NO) CSF Volume 4.0 mL CSF Appearance Clear (Clear) CSF Color Colorless (Colorless) CSF RBC < 0.002 (0.000 - 0.002) M/mcL CSF Tot Nucleated Cells 3 (0-5) TNC/mcL - Radiology Data Radiology results reviewed: Yes I reviewed the patient's radiology results. - EKG Data EKG attestation: Yes I reviewed and interpreted this EKG. EKG results narrative: EKG done at 20 30 a review myself and attending shows sinus rhythm at a rate of 86, FL interval 250, QRS 135, QTC 497. Is no acute ST changes no acute T-wave changes nor sent ischemia. No signs of hypertrophy, heart strain there is a right bundle branch block no other blocks. No WPW/Brugada/HOCM. EKG is unchanged based on old EKG done 11/10/18 TPA Checklist - LKW: 3-4.5 hrs Add. Warnings/Precautions Patient/family understanding: The patient/family members have been counseled and understood the risk, benefit, and alternatives of treatment. Attestation Statement - Attestation Attestation: I, Jim Lindo, examined this patient and my medical decision-making was reviewed with the CERTIFIED ACTIVITIES DIRECTOR/PA/Advanced Practice Nurse/Resident Physician. I agree with the documented findings, disposition and treatment plan as described except to the extent set forth below. 74-year-old male presents emergency Department with concerns of altered mental status and fever. Family states that he exerted himself more than usual yesterday and has today been weak and fatigued. They state that this is occurred in the past. Today on evaluation emergency department he is unable to give a history regarding his case and presentation. He is alert to self but not to place or time or situation. He moves all extremities and does not have obvious new focal neurologic deficit. He does have a history of a CVA which left him with right-sided deficits. Patient is pale however his hemoglobin is only mildly anemic. He was febrile on the initial evaluation however he does not have an obvious urinary tract infection. X-ray did not show evidence of pne umonia. Because the patient is also has a fever we obtained a lumbar puncture after a discussion of the risks and benefits with family. Lumbar puncture was performed by the resident. I was present during the entire procedure.I reviewed the EKG with the resident and agree with the interpretation. CSF results pending at this time. Patient was given empiric antibiotics in the emergency department. He will be admitted to the hospitalist for further care and evaluation.
[2019-04-14 23:52] LABS: Basophils % 0.4 %; Eosinophils % 0.2 %; Hematocrit 33.7 % (37.5-50.1); Hemoglobin 11.3 g/dL (12.9-16.9); Immature Granulocytes % 0.2 % (0-4); Lymphocytes # 1.1 K/mcL (0.6-4.6); Lymphocytes % 13.6 %; Mean Corpuscular HGB Conc 33.5 g/dL (31.6-35.5); Mean Corpuscular Hemoglobin 30.3 pg (28.0-33.3); Mean Corpuscular Volume 90.3 fL (83.0-100.0); Mean Platelet Volume 9.9 fL (9.4-12.4); Monocytes # 0.5 K/mcL (0.0-1.3); Monocytes % 6.5 %; Neutrophils # 6.5 K/mcL (1.6-8.9); Platelet Count 179 K/mcL (140-400); Red Blood Count 3.73 M/mcL (4.19-5.50); Red Cell Distribution Width 12.6 % (11.5-14.5); Segmented Neutrophils % 79.1 %; White Blood Count 8.2 K/mcL (4.3-11.1)
[2019-04-15 00:01] LABS: INR 1.1
[2019-04-15 00:03] LABS: Activated Partial Thrombo Time 31.3 Seconds (26.0-36.0)
[2019-04-15 00:16] LABS: Albumin 3.9 g/dL (3.5-5.7); Albumin/Globulin Ratio 1.6 (1.1-2.2); Bilirubin,Direct 0.1 mg/dL (0.0-0.2); Bilirubin,Indirect 0.5 mg/dL (0.0-1.2); Bilirubin,Total 0.6 mg/dL (0.3-1.0); Calcium 8.8 mg/dL (8.6-10.3); Globulin 2.4 g/dL (2.4-3.5); Magnesium 1.8 mg/dL (1.6-2.6); Phosphorous 3.7 mg/dL (2.7-4.5); Potassium 3.9 mEq/L (3.5-5.1); Total Protein 6.3 g/dL (6.4-8.9); Troponin I 0.03 ng/mL (< 0.04)
[2019-04-15 00:27] LABS: Bilirubin,Urine Negative (Negative); Blood,Urine Trace (Negative); Clarity,Urine Clear (Clear); Color,Urine Yellow (Yellow); Glucose,Urine (UA) 100 mg/dL (Normal); Ketones,Urine Negative (Negative); Leukocyte Esterase,Urine Negative (Negative); Nitrite,Urine Negative (Negative); Protein,Urine >=300 mg/dL (Neg-Trace); Specific Gravity,Urine 1.019 (1.010-1.025); Urobilinogen,Urine Normal (Normal)
[2019-04-15 00:29] LABS: Bacteria,Urine None Seen per hpf (None-Few); Hyaline Casts,Urine None Seen per lpf (None-Few)
[2019-04-15 00:44] LABS: Squamous Epithelial Cell,Urine Moderate per lpf (None-Few)
[2019-04-15 01:46] LABS: Appearance,CSF Clear (Clear)
[2019-04-15 01:48] LABS: Red Blood Cell,CSF < 0.002 M/mcL
[2019-04-15] MEDS ORDERED: Ampicillin 2 GM in 0.9 % Sodium Chloride Mini Bag 100 ML IVPB ONE (01:57)
[2019-04-15] MEDS ORDERED: cefTRIAXone 2,000 MG in Water for inj. (sterile) 20 ML IVP ONE (01:57)
[2019-04-15 02:11] LABS: Glucose,CSF 103 mg/dL (40-70); Total Protein,CSF 118 mg/dL (15-45)
[2019-04-15] MEDS ORDERED: Naloxone 0.4 MG/ML INJ IVP PRN (02:52)
[2019-04-15] MEDS ORDERED: Ondansetron 4 MG/2 ML VIAL IVP PRN (02:52)
--- NOTE | 2019-04-15 02:55 | Internal Med History&Physical ---
<Ameya Brownlee - Last Filed: 04/15/19 05:07> Date of Encounter: 04/15/19 Time of Encounter: 03:39 Internal Medicine - H&P: HPI Chief complaint: AMS Admitted From: Emergency Dept Plans for Post Hospital Care: Home History of present illness: Mr. Renner is a 74 year old male with a PMhx of CVA, diabetes, hyperlipidemia, hypertension who presents to emergency department with family for concerns of altered mental status. Patient is notably a poor historian and minimally participated in interview. Majority of history is obtained per family and chart review. Family states that patient's baseline waxes and wanes however they noticed earlier today that he went for a walk to the end of the street twice without telling anybody. Family states that this is relatively abnormal for him. They state that he has been less interactive today and more reserved. Family does admit that he "plays possum" occasionally and sometimes does not answer questions when asked. He has residual deficits of his stroke including some right sided weakness and expressive aphasia. Only recent change in medication is from humolog to trulicity, approximately 1 month ago. Of note, patient has been seen multiple times at this facility for concerns of altered mental status, most recently in November 2018 when he was diagnosed with a stroke. He has been dissipating and outpatient rehabilitation and family states that he is doing very well. He does have some residual right-sided deficits as well as some dysphasia. Family states that he rarely complains of anything and it seemed at his baseline for the past couple days. He has not been complaining of any fevers, chills, nausea, vomiting. Family states that his oral intake has been poor for the last week or so. They have not noticed him coughing or displaying any signs of illness. He denies any travel. Only sick contacts are great-grandchildren briefly who may have had a respiratory illness. In the emergency room, vital signs were significant for temperature of 101.8, heart rate as high as 103. Laboratory results show no evidence of leukocytosis, baseline anemia, baseline kidney function, glucose of 242, lactic acid 2.0. Pro-calcitonin was ordered and was 0.20. Urinalysis was not suggestive of infection. Chest x-ray showed no acute process and CT of the head commented on pituitary adenoma and meningioma which is consistent with previous. Due to concerns of altered mental status as well as fever, patient did have lumbar puncture performed in emergency department. CSF shows 3 nucleated cells, mildly elevated glucose and protein. He was given a dose of Rocephin, ampicillin, vancomycin. At time of my interview, patient is awake and alert. He has no complaints at this time. Family at bedside does corroborate story. Specifically, patient denies any pain including neck pain, headache. Past medical history: As above Past surgical history: Appendectomy, volvulus Social history: Denies tobacco, alcohol, drug use Family history: Denies contributory Past Med Surg Social Fam HX - Past Medical History Medical history: CVA, diabetes, hyperlipidemia, hypertension Additional medical history: 2 brain tumor, cataracts Psychiatric history: no psych history - Past Surgical History Surgical History: appendectomy - Social History Smoking Status: Never smoker Smokeless Tobacco Status: No Alcohol use: none Drug use: none Internal Medicine - H&P: Meds Atorvastatin [Lipitor] 40 mg PO HS 09/30/17 [History] Cetirizine HCl [Zyrtec] 10 mg PO DAILY PRN 09/30/17 [History] Tamsulosin [Flomax] 0.4 mg PO DAILY 09/30/17 [History] Dulaglutide [Trulicity] 1.5 mg SQ QWEEK 04/15/19 [History] Insulin Glargine [Lantus] 17 unit SQ HS 04/15/19 [History] Potassium Chloride [Klor-Con 10] 10 meq PO DAILY 04/15/19 [History] Allergy/AdvReac Type Severity Reaction Status Date / Time aspirin Allergy See Verified 04/14/19 22:55 Comments ROS unobtainable: due to mental status All Systems PM: A 10-system review of systems was performed and is negative for pertinent findings except as documented above in the HPI. - Constitutional Vitals: Temp Pulse Resp BP Pulse Ox 101.8 F H 88 16 141/87 97 04/14/19 22:48 04/15/19 02:00 04/15/19 02:00 04/15/19 02:00 04/15/19 02:00 Exam: Gen.: Vitals noted. No acute distress. AAOx2, resting comfortably in bed. HEENT: PERRL/EOMI, oropharynx clear, Normocephalic, atraumatic, MMM Neck: Supple. No adenopathy. No thyroid nodules. Negative Brudzinski sign, no tenderness to palpation Cardiac: RRR, possible systolic murmur, +S1/S2, No BLE edema Pulmonary: CTA bilaterally, no wheezes, rales or rhonchi, equal chest expansion, unlabored breathing Abdomen: soft, does not grimace to palpation, BS noted, no guarding, no palpable HSM Back: Nontender throughout. Skin: warm and dry, no visible lesions. MSK: ROM intact, no joint swelling noted, gait no assessed while in bed. Non tender calf or clubbing. Muscle strength 4/5 in all extremities. Neuro: A&Ox2, moves all extremities, no focal deficits, sensation intact, CN II- XII intact. Psych: Appropriate mood and behavior, reserved. AOx2 Internal Med - H&P Results - Labs CBC & Chem 7: 04/14/19 23:35 04/14/19 23:35 Labs: Short CBC 04/14/19 Range/Units 23:35 WBC 8.2 (4.3-11.1) K/mcL Hgb 11.3 L (12.9-16.9) g/dL Hct 33.7 L (37.5-50.1) % Plt Count 179 (140-400) K/mcL Neutrophils # 6.5 (1.6-8.9) K/mcL BMP 04/14/19 23:35 Sodium 133 L Potassium 3.9 Chloride 98 Carbon Dioxide 25 BUN 17 Creatinine 1.43 H Glucose 242 H Calcium 8.8 Cardiac Enzymes 04/14/19 Range/Units 23:35 Troponin I 0.03 (< 0.04) ng/mL Liver Function 04/14/19 Range/Units 23:35 Total Bilirubin 0.6 (0.3-1.0) mg/dL Direct Bilirubin 0.1 (0.0-0.2) mg/dL AST 19 (13-39) Units/L ALT 12 (7-52) Units/L Alkaline Phosphatase 56 (34-104) Units/L Albumin 3.9 (3.5-5.7) g/dL Urine 04/14/19 Range/Units 23:54 Urine Color Yellow (Yellow) Urine Clarity Clear (Clear) Urine pH 6.0 (5.0-8.0) pH Units Ur Specific [place] 1.019 (1.010-1.025) Urine Protein >=300 H (Neg-Trace) mg/dL Urine Glucose (UA) 100 H (Normal) mg/dL - Impressions ITS Impressions Chest X-Ray 04/15/19 00:40 IMPRESSION: Negative portable chest. D/ / Oral Purvis MD / Oral Purvis MD Interpreting Provider: Oral Purvis MD Head CT 04/15/19 22:54 IMPRESSION: Small vessel chronic ischemic changes without acute hemorrhage or definite evidence for acute ischemia. Pituitary adenoma and right middle cranial fossa meningioma again identified. D/ / Oral Purvis MD / Oral Purvis MD Interpreting Provider: Oral Purvis MD - Assessment and Plan (1) Sepsis Current Visit: Yes Status: Suspected Assessment and plan: - Meets 2/4 SIRS criteria with fever of 101.4 and HR 103 - Lactic acid of 2.0 - Suspected source: Unclear. Possibility of pneumonia vs viral meningitis vs noninfectious vs tumor - Organism unclear - No leukocytosis, ROS unobtainable - Patient has recent CVA in November with residual dysphagia and family has noticed minimal aspiration. - LP performed in ED shows 3 nucleated cells, glucose 103, protein 118. unlikely bacterial - Blood cultures obtained, CSF culture obtained - UA is not suggestive of infection - CXR shows no acute process, however patient may be mildly hypovolemic due to poor oral intake - CT head shows no acute pathology, meningioma and pituitary adenoma are consistent with previous - Received vancomycin, ampicillin, ceftriaxone for empiric coverage in ED Plan - Given LP findings, will not resume abx for bacterial meningitis unless patient continues to have fevers or neurologic changes - Will add acyclovir for viral coverage. - Will send HSV labs - Add additional NS bolus and maintenance fluids per sepsis protocol. - Will also add zosyn given possibility for aspiration. CT chest pending. - NPO with speech consult for possible aspiration Qualifiers: Sepsis type: sepsis due to unspecified organism Qualified Code(s): A41.9 - Sepsis, unspecified organism (2) Diabetes mellitus Current Visit: Yes Status: Chronic Assessment and plan: - Known DM with Hgb A1c of 10.2% in October 2018 - Glucose on admission of 242. - Family states he normally runs hyperglycemic in 400s, but recent change in meds have helped - Humolog --> trulicity around a month ago per family Plan - q6 hour checks while NPO - SSI, home basal coverage - Repeat A1c Qualifiers: Diabetes mellitus type: type 2 Diabetes mellitus group home insulin use: with group home use Diabetes mellitus complication status: without complication Qualified Code(s): E11.9 - Type 2 diabetes mellitus without complications; Z79.4 - terminal gauger (current) use of insulin (3) Altered mental status Current Visit: Yes Status: Acute Assessment and plan: - As above - Etiology unclear at this time however may be related to infection, dehydration - Lower suspicion of CVA given nonfocal exam and normal head CT, although patient does have a strong history - Also noted that this may be patient's baseline given his propensity to wax and wane" play possum" per the family Plan - Will obtain MRI in AM to rule out further stroke or mass changes. - Continue to monitor and treat underlying signs as above Qualifiers: Altered mental status type: unspecified Qualified Code(s): R41.82 - Altered mental status, unspecified (4) Hypertension Current Visit: Yes Status: Chronic Assessment and plan: [facility], [place] Currently moderately well controlled Continue home meds once reconciled Qualifiers: Hypertension type: essential hypertension Qualified Code(s): I10 - Essential (primary) hypertension (5) Meningitis Current Visit: Yes Status: Suspected Assessment and plan: Suspected given altered mental status and fever LP performed, bacterial meningitis unlikely We will continue empiric coverage for viral meningitis and await culture results (6) Pneumonia Current Visit: Yes Status: Suspected Assessment and plan: As above CT chest pending Qualifiers: Pneumonia type: aspiration pneumonia Aspiration pneumonia type: unspecified Laterality: unspecified laterality Lung location: unspecified part of lung Qualified Code(s): J69.0 - Pneumonitis due to inhalation of food and vomit (7) Brain mass Current Visit: Yes Status: Chronic Assessment and plan: - Noted on CT scan a pituitary adenoma as well as meningioma - Patient does have a known history of these most recently documented on MRI on 12/08/18 - Patient does follow as an outpatient - Lower suspicion that these are causing patient's symptoms, but may alter patient's CSF findings (8) Anemia Current Visit: Yes Status: Chronic Assessment and plan: - Hemoglobin noted to be 11.3 on admission - Baseline appears to be 11-12 - No signs or symptoms of bleeding, hemodynamically stable - Consider workup as outpatient - We will continue to monitor Qualifiers: Anemia type: unspecified type Qualified Code(s): D64.9 - Anemia, unspecified (9) Hyponatremia Current Visit: Yes Status: Acute Assessment and plan: Noted at 133 on admission Baseline appears to be mid 130s Possibly due to poor oral intake, however patient does have a known history of brain mass as above. Plan we will continue to monitor and give fluid hydration as above (10) Chronic kidney disease Current Visit: Yes Status: Chronic Assessment and plan: BUNs/creatinine of 17/1.43 on admission This appears to be consistent with patient's baseline Unlikely cause of alteration of mental status We will avoid nephrotoxins and continue to monitor daily labs Renally dose medications Qualifiers: Chronic kidney disease stage: stage 3 (moderate) Qualified Code(s): N18.3 - Chronic kidney disease, stage 3 (moderate) (11) DVT prophylaxis Current Visit: Yes Status: Acute Assessment and plan: Subcutaneous heparin - Time Spent With Patient Total time spent is greater than 50% in coordination of care (as documented) at patient's floor/unit and/or counseling patient: <Em Hines - Last Filed: 04/15/19 06:21> Date of Encounter: 04/15/19 Internal Medicine - H&P: HPI History of present illness: Mr. Renner is a 74 year old male All Systems PM: A 10-system review of systems was performed and is negative for pertinent findings except as documented above in the HPI. - Constitutional Vitals: Temp Pulse Resp BP Pulse Ox 98.6 F 73 16 110/69 98 04/15/19 04:39 04/15/19 04:39 04/15/19 04:39 04/15/19 04:39 04/15/19 04:39 Internal Med - H&P Results - Labs CBC & Chem 7: 04/14/19 23:35 04/14/19 23:35 Labs: Short CBC 04/14/19 Range/Units 23:35 WBC 8.2 (4.3-11.1) K/mcL Hgb 11.3 L (12.9-16.9) g/dL Hct 33.7 L (37.5-50.1) % Plt Count 179 (140-400) K/mcL Neutrophils # 6.5 (1.6-8.9) K/mcL BMP 04/14/19 23:35 Sodium 133 L Potassium 3.9 Chloride 98 Carbon Dioxide 25 BUN 17 Creatinine 1.43 H Glucose 242 H Calcium 8.8 Cardiac Enzymes 04/14/19 Range/Units 23:35 Troponin I 0.03 (< 0.04) ng/mL Liver Function 04/14/19 Range/Units 23:35 Total Bilirubin 0.6 (0.3-1.0) mg/dL Direct Bilirubin 0.1 (0.0-0.2) mg/dL AST 19 (13-39) Units/L ALT 12 (7-52) Units/L Alkaline Phosphatase 56 (34-104) Units/L Albumin 3.9 (3.5-5.7) g/dL Urine 04/14/19 Range/Units 23:54 Urine Color Yellow (Yellow) Urine Clarity Clear (Clear) Urine pH 6.0 (5.0-8.0) pH Units Ur Specific [place] 1.019 (1.010-1.025) Urine Protein >=300 H (Neg-Trace) mg/dL Urine Glucose (UA) 100 H (Normal) mg/dL - Impressions ITS Impressions Chest X-Ray 04/15/19 00:40 IMPRESSION: Negative portable chest. D/ / Oral Purvis MD / Oral Purvis MD Interpreting Provider: Oral Purvis MD Head CT 04/15/19 22:54 IMPRESSION: Small vessel chronic ischemic changes without acute hemorrhage or definite evidence for acute ischemia. Pituitary adenoma and right middle cranial fossa meningioma again identified. D/ / Oral Purvis MD / Oral Purvis MD Interpreting Provider: Oral Purvis MD - Time Spent With Patient Total time spent is greater than 50% in coordination of care (as documented) at patient's floor/unit and/or counseling patient: - Attending Attestation I performed a history and physical examination of the patient and discussed his management with the resident. I reviewed the resident's note and agree with the assessment and documented plan of care. Patient is a 74 year old male with a PMhx of CVA with residual right-sided deficits and expressive aphasia, diabetes, hyperlipidemia, hypertension who was brought in by family due to concerns of altered mental status. Please see history of present illness above for details. On initial assessment in the ED patient was noted to be febrile with a temperature of 101.8, hemodynamically stable otherwise. Laboratory and imaging workup were unremarkable for any clear source of infection. Pro-calcitonin was noted to be elevated. Patient underwent LP in the ED with findings of clear colorless fluid with a total of 3 nucleated cells, and elevated glucose and protein weekly suggestive of a bacterial etiology. Nonetheless, patient was started on empirical treatment for possible meningitis. On my assessment, patient alert oriented 3. He has considerable expressive aphasia and notable right-sided weakness. Remainder of neurologic exam was intact and remainder of physical examination was unremarkable. Based on LP findings, agree with discontinuing antibiotics, HSV testing and initiating acyclovir for possible viral etiology. Agree with CT scan of the chest for further evaluation of possible aspiration given patient's stroke/aphasia. We will obtain MRI of the brain to rule out stroke and further evaluate for any evidence of interval enlargement of previously identified pituitary adenoma/meningioma.
[2019-04-15] MEDS ORDERED: 0.9 % Sodium Chloride 1,000 ML IVC ONE (04:12)
[2019-04-15] MEDS ORDERED: Dextrose Gel 15 GM/37.5 ML TUBE PO PRN ×2 (04:13)
[2019-04-15] MEDS ORDERED: D5% in Water 1,000 ML IVC PRN (04:13)
[2019-04-15] MEDS ORDERED: *HR* Dextrose 50 % in Water (Syg) 50 ML SYRINGE IVP PRN (04:13)
[2019-04-15] MEDS: 0.9 % Sodium Chloride 1,000 ML IVC SCH ×2 (06:22→22:16)
[2019-04-15] MEDS: *HR* Heparin 5,000 UNIT/ML VIAL SQ SCH ×2 (06:30→17:50)
[2019-04-15 07:07] LABS: Basophils % 0.4 %; Eosinophils % 0.3 %; Hematocrit 31.4 % (37.5-50.1); Hemoglobin 10.3 g/dL (12.9-16.9); Immature Granulocytes % 0.5 % (0-4); Lymphocytes # 1.6 K/mcL (0.6-4.6); Lymphocytes % 20.3 %; Mean Corpuscular HGB Conc 32.8 g/dL (31.6-35.5); Mean Corpuscular Hemoglobin 29.5 pg (28.0-33.3); Monocytes # 0.6 K/mcL (0.0-1.3); Monocytes % 6.9 %; Neutrophils # 5.7 K/mcL (1.6-8.9); Platelet Count 177 K/mcL (140-400); Red Blood Count 3.49 M/mcL (4.19-5.50); Red Cell Distribution Width 12.8 % (11.5-14.5); Segmented Neutrophils % 71.6 %
[2019-04-15 07:44] LABS: Estimated Average Glucose 174 mg/dl
[2019-04-15] MEDS: Insulin LISPRO 300 UNITS/3 ML VIAL SQ SCH ×5 (07:48→20:33)
[2019-04-15] MEDS ORDERED: Acyclovir 750 MG in D5% in Water 250 ML IVPB SCH (08:00)
[2019-04-15 09:11] LABS: Calcium 8.1 mg/dL (8.6-10.3); Potassium 3.5 mEq/L (3.5-5.1)
[2019-04-15] MEDS: Piperacillin/Tazobactam 3.375 GM in 0.9 % Sodium Chloride Mini Bag 100 ML IVPB SCH ×3 (10:46→23:57)
--- NOTE | 2019-04-15 16:02 | Event Note ---
Date of Encounter: 04/15/19 Time of Encounter: 10:15 I examined this patient and my medical decision-making was reviewed with the Resident Physician on 04/15/19. I agree with the documented findings, disposition and treatment plan as described except to the extent set forth below. Mr Renner is currently admitted for acute metabolic encephalopathy with hx CVA and aphasia. He remains moderate to high risk due to potential for worsening neuro status. Mr Renner is resting at this time. He does not answer questions much. No further fever. No apparent CP or SOB. No abd pain. No GI issues. Exam alert but does not respond. NC Mucus membranes dry Heart distant - not tachy at this time Lungs diminished but clear anteriorly ABd soft and nontender Moves all extremities. ? weaker on R - does not follow well. No edema Labs reviewed I/P 1. Acute metabolic encephalopathy - ? infectious versus other. 2. 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 CVA with expressive aphasia 4. Dehydration - continue fluids 5. sepsis - resolved. 6. 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 Further diagnoses and plan as per progress note of this date.
--- NOTE | 2019-04-15 16:38 | Internal Med Progress Note ---
<Enoch Smith I - Last Filed: 04/15/19 17:53> Hospitalist Progress Note - Encounter Date of Encounter: 04/15/19 Time of Encounter: 08:50 - Subjective Interval History: Mr. Renner is 74 year old man with past medical history of diabetes , hypertension ,hyperlipidemia ,stroke, he presented to the hospital last night due to altered mental state. Today the patient was seen and examined , he did not respond to all the questions . But otherwise he was sleeping comfortable in bed He denies any fever, chest pain, shortness of breath, nausea, vomiting ,diarrhea ,constipation , - Exam Vitals: Temp Pulse Resp BP Pulse Ox 98.6 F 71 16 174/75 98 04/15/19 16:31 04/15/19 16:31 04/15/19 16:31 04/15/19 16:31 04/15/19 16:31 Exam: Gen.: No acute distress. AAOx2, resting comfortably in bed. HEENT: PERRL/EOMI, oropharynx clear, Normocephalic, atraumatic, MMM Neck: Supple. No adenopathy. Cardiac: RRR, possible systolic murmur, +S1/S2, Pulmonary: CTA bilaterally, no wheezes, rales or rhonchi, equal chest expansion, unlabored breathing Abdomen: soft Neuro: A&Ox2, moves all extremities, no focal deficits, sensation intact Psych: Appropriate mood and behavior, reserved. AOx2 - Assessment and Plan (1) Sepsis Current Visit: Yes Status: Suspected Assessment and Plan: Patient presented to the ER with with confusion that is most likely due to sepsis from infection , SIRS confusion , T 98.3 there was suspicion of aspiration pneumonia but CXR at 04/15/2019 came back negative for acute lung process , CT scan of lung was ordered to rule out pneumonia and patient started on Zosyn. At the ER lumbar puncture was done and CSF shows glucose 103 protein 118 ,3 nucleated RBC urine analysis is negative 04/15/2019blood culture is pending 04/15/2019 CSF culture is pending we started patient on ceftriaxone and azithromycin and ampicillin that was stopped later patient sepsis is improved We started patient on acyclovir due to suspicion of viral encephalitis We started patient on soft diet and honey thickened liquids according to speech therapist recommended Herpes simplex virus 1 and 2 glycoprotein IgG CSF was send also HSV PCR , also Influnza Ig Plan Continue IV fluids dextrose 5W at at a rate of 100/hr Continue Zosyn for suspicion of aspiration pnumonia day 1 of 7-10 course Continue acyclovir for suspicion of viral source of infection mostly herpes simplex viral encephalitis Vital signs monitoring and supplemental oxygen as needed (2) Diabetes mellitus Current Visit: Yes Status: Chronic Assessment and Plan: Patient is a known case of diabetes mellitus with started him on Insulin Detemir 17 units , and lispro (humalog )6SQ (3) Brain mass Current Visit: Yes Status: Chronic Assessment and Plan: Patient is known to have pituitary adenoma and meningioma It is a chronic condition with recommendation to follow-up with primary care provider when he is discharged (4) History of CVA (cerebrovascular accident) Current Visit: No Status: Chronic Assessment and Plan: This is a chronic condition . Follow-up primary care provider and be compliant with medication (5) DVT prophylaxis Current Visit: Yes Status: Acute - Time Spent with Patient Total time spent is greater than 50% in coordination of care (as documented) at patient's floor/unit and/or counseling patient: Internal Medicine: Result - Labs CBC & Chem 7: 04/15/19 06:53 04/15/19 06:53 Labs: Short CBC 04/14/19 04/15/19 Range/Units 23:35 06:53 WBC 8.2 8.0 (4.3-11.1) K/mcL Hgb 11.3 L 10.3 L (12.9-16.9) g/dL Hct 33.7 L 31.4 L (37.5-50.1) % Plt Count 179 177 (140-400) K/mcL Neutrophils # 6.5 5.7 (1.6-8.9) K/mcL BMP 04/14/19 04/15/19 23:35 06:53 Sodium 133 L 134 L Potassium 3.9 3.5 Chloride 98 101 Carbon Dioxide 25 24 BUN 17 18 Creatinine 1.43 H 1.40 H Glucose 242 H 177 H Calcium 8.8 8.1 L Cardiac Enzymes 04/14/19 Range/Units 23:35 Troponin I 0.03 (< 0.04) ng/mL Liver Function 04/14/19 Range/Units 23:35 Total Bilirubin 0.6 (0.3-1.0) mg/dL Direct Bilirubin 0.1 (0.0-0.2) mg/dL AST 19 (13-39) Units/L ALT 12 (7-52) Units/L Alkaline Phosphatase 56 (34-104) Units/L Albumin 3.9 (3.5-5.7) g/dL Urine 04/14/19 Range/Units 23:54 Urine Color Yellow (Yellow) Urine Clarity Clear (Clear) Urine pH 6.0 (5.0-8.0) pH Units Ur Specific [place] 1.019 (1.010-1.025) Urine Protein >=300 H (Neg-Trace) mg/dL Urine Glucose (UA) 100 H (Normal) mg/dL - ABG Interpretation ABG results: PT/INR, D-dimer PT 13.0 Seconds (9.4-12.1) H 04/14/19 23:35 - Impressions Impressions Chest X-Ray 04/15/19 00:40 IMPRESSION: Negative portable chest. D/ / Oral Purvis MD / Oral Purvis MD Interpreting Provider: Oral Purvis MD Chest CT 04/15/19 03:30 IMPRESSION: 1. No acute abnormality in the lungs. No evidence of pneumonia. 2. Circumferential soft tissue thickening of the mid esophagus. Esophagitis is most likely. Consider further evaluation with upper endoscopy to exclude a mass. D/ / Ameya Morales MD / Ameya Morales MD Interpreting Provider: Ameya Morales MD Brain MRI 04/15/19 05:07 IMPRESSION: No acute intracranial abnormality. Moderate chronic microvascular ischemic disease. Sellar/suprasellar mass, consistent with known pituitary macroadenoma, right middle cranial fossa meningioma have not significantly changed since 12/08/2018. D/ /15/2019 13:54:21 uRchi Staples MD / [facility] Interpreting Provider: Ruchi Staples MD Head CT 04/15/19 22:54 IMPRESSION: Small vessel chronic ischemic changes without acute hemorrhage or definite evidence for acute ischemia. Pituitary adenoma and right middle cranial fossa meningioma again identified. D/ / Oral Purvis MD / Oral Purvis MD Interpreting Provider: Oral Purvis MD Consult Discharge Plan - Plan Referrals: [facility] Care Provider[facility] - <Juvencio Mcwilliams - Last Filed: 04/16/19 16:42> Hospitalist Progress Note - Encounter Date of Encounter: 04/15/19 - Exam Vitals: Temp Pulse Resp BP Pulse Ox 97.9 F 68 17 154/78 99 04/16/19 15:46 04/16/19 15:46 04/16/19 15:46 04/16/19 15:46 04/16/19 15:46 - Time Spent with Patient Total time spent is greater than 50% in coordination of care (as documented) at patient's floor/unit and/or counseling patient: Internal Medicine: Result - Labs CBC & Chem 7: 04/16/19 01:52 04/16/19 01:52 Labs: Short CBC 04/16/19 Range/Units 01:52 WBC 4.7 (4.3-11.1) K/mcL Hgb 9.4 L (12.9-16.9) g/dL Hct 28.2 L (37.5-50.1) % Plt Count 162 (140-400) K/mcL Neutrophils # 2.6 (1.6-8.9) K/mcL BMP 04/16/19 01:52 Sodium 138 Potassium 3.3 L Chloride 104 Carbon Dioxide 27 BUN 20 Creatinine 1.55 H Glucose 167 H Calcium 8.1 L - ABG Interpretation ABG results: PT/INR, D-dimer PT 13.0 Seconds (9.4-12.1) H 04/14/19 23:35 - Attending Attestation Please see event note of this date for attestation. 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
[2019-04-15] MEDS: Acyclovir 750 MG in D5% in Water 250 ML IVPB SCH (20:17)
[2019-04-15] MEDS: Insulin DETEMIR 100 UNIT/ML X5UNITS SQ SCH (20:17)
[2019-04-15] MEDS ORDERED: INSULIN GLARGINE 17 UNIT SQ SCH (21:00)
[2019-04-16 02:37] LABS: Basophils % 0.6 %; Eosinophils # 0.1 K/mcL (0.0-0.6); Eosinophils % 2.7 %; Hematocrit 28.2 % (37.5-50.1); Hemoglobin 9.4 g/dL (12.9-16.9); Immature Granulocytes % 0.2 % (0-4); Lymphocytes # 1.6 K/mcL (0.6-4.6); Lymphocytes % 32.8 %; Mean Corpuscular HGB Conc 33.3 g/dL (31.6-35.5); Mean Corpuscular Hemoglobin 30.3 pg (28.0-33.3); Mean Platelet Volume 10.3 fL (9.4-12.4); Monocytes # 0.4 K/mcL (0.0-1.3); Monocytes % 8.9 %; Neutrophils # 2.6 K/mcL (1.6-8.9); Platelet Count 162 K/mcL (140-400); Red Cell Distribution Width 12.7 % (11.5-14.5); Segmented Neutrophils % 54.8 %; White Blood Count 4.7 K/mcL (4.3-11.1)
[2019-04-16 02:55] LABS: Calcium 8.1 mg/dL (8.6-10.3); Magnesium 1.9 mg/dL (1.6-2.6); Potassium 3.3 mEq/L (3.5-5.1)
[2019-04-16] MEDS: *HR* Heparin 5,000 UNIT/ML VIAL SQ SCH ×2 (05:19→16:47)
[2019-04-16] MEDS: Piperacillin/Tazobactam 3.375 GM in 0.9 % Sodium Chloride Mini Bag 100 ML IVPB SCH ×2 (07:45→16:46)
[2019-04-16] MEDS: Insulin LISPRO 300 UNITS/3 ML VIAL SQ SCH ×4 (07:53→20:46)
[2019-04-16] MEDS: Acyclovir 750 MG in D5% in Water 250 ML IVPB SCH ×2 (07:59→23:44)
[2019-04-16] MEDS: 0.9 % Sodium Chloride 1,000 ML IVC SCH ×2 (08:11→20:38)
--- NOTE | 2019-04-16 16:48 | Internal Med Progress Note ---
Hospitalist Progress Note - Encounter Date of Encounter: 04/16/19 Time of Encounter: 16:15 - Subjective Interval History: Mr Renner is currently admitted for acute encephalopathy. He remains moderate to high risk due to potential for worsening clinical and neuro status. Mr Renner is much more awake and alert today. He is conversant some and feels OK. No fever or chills. No CP or SOB. - Exam Vitals: Temp Pulse Resp BP Pulse Ox 97.9 F 68 17 154/78 99 04/16/19 15:46 04/16/19 15:46 04/16/19 15:46 04/16/19 15:46 04/16/19 15:46 Exam: Gen.: No acute distress. Interactive with me. Answers some questions. H: Normocephalic EENT: EOMI. Mucus membranes moist. Neck: Supple. No adenopathy. No nuchal rigidity Cardiac: RRR, . Not tachycardic. Pulmonary: CTA bilaterally, Abdomen: soft. Nontender/ Neuro: moves all extremities, Expressive aphasia present Psych: Appropriate mood and behavior, Ext: No edema. Moves all equally. Skin: No rash. - Assessment and Plan (1) Acute metabolic encephalopathy Current Visit: Yes Status: Acute Assessment and Plan: Pt presented with fever and confusion. 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 Currently improving with treatment. Will continue IV acyclovir and abx Cultures pending at this time. (2) Encephalitis due to human herpes simplex virus (HSV) Current Visit: Yes Status: Suspected Assessment and Plan: Pt presented to ED with fever and confusion with elevated CSF protein. Has responded to current treatment. CSF studies are pending. Will continue same treatment at this time. (3) Hypokalemia Current Visit: Yes Status: Acute Assessment and Plan: Replace today. (4) Chronic kidney disease Current Visit: Yes Status: Chronic Assessment and Plan: Creatinine appears to be baseline at this time. (5) Diabetes mellitus Current Visit: Yes Status: Chronic Assessment and Plan: Blood sugar elevated on admission but has been slowly improving with treatment. Continue current blood sugar management. (6) Aphasia as late effect of stroke Current Visit: Yes Status: Chronic Assessment and Plan: Chronic condition. - Time Spent with Patient Total time spent is greater than 50% in coordination of care (as documented) at patient's floor/unit and/or counseling patient: Internal Medicine: Result - Labs CBC & Chem 7: 04/16/19 01:52 04/16/19 01:52 Labs: Short CBC 04/16/19 Range/Units 01:52 WBC 4.7 (4.3-11.1) K/mcL Hgb 9.4 L (12.9-16.9) g/dL Hct 28.2 L (37.5-50.1) % Plt Count 162 (140-400) K/mcL Neutrophils # 2.6 (1.6-8.9) K/mcL BMP 04/16/19 01:52 Sodium 138 Potassium 3.3 L Chloride 104 Carbon Dioxide 27 BUN 20 Creatinine 1.55 H Glucose 167 H Calcium 8.1 L - ABG Interpretation ABG results: PT/INR, D-dimer PT 13.0 Seconds (9.4-12.1) H 04/14/19 23:35 Consult Discharge Plan - Plan [facility]errals: [facility]Primary Care Provider[facility] - __ (4) Chronic kidney disease Qualifiers: Chronic kidney disease stage: stage 3 (moderate) Qualified Code(s): N18.3 - Chronic kidney disease, stage 3 (moderate) (5) Diabetes mellitus Qualifiers: Diabetes mellitus type: type 2 Diabetes mellitus emt intermediate insulin use: with group home use Diabetes mellitus complication status: with hyperglycemia Qualified Code(s): E11.65 - Type 2 diabetes mellitus with hyperglycemia; Z79.4 - long-term (current) use of insulin
[2019-04-16] MEDS: Insulin DETEMIR 100 UNIT/ML X5UNITS SQ SCH (20:47)
[2019-04-17] MEDS: Piperacillin/Tazobactam 3.375 GM in 0.9 % Sodium Chloride Mini Bag 100 ML IVPB SCH ×3 (00:58→16:56)
[2019-04-17 03:06] LABS: Hematocrit 28.1 % (37.5-50.1); Hemoglobin 9.3 g/dL (12.9-16.9); Mean Corpuscular HGB Conc 33.1 g/dL (31.6-35.5); Mean Corpuscular Hemoglobin 29.5 pg (28.0-33.3); Mean Corpuscular Volume 89.2 fL (83.0-100.0); Mean Platelet Volume 10.2 fL (9.4-12.4); Platelet Count 158 K/mcL (140-400); Red Blood Count 3.15 M/mcL (4.19-5.50); Red Cell Distribution Width 12.5 % (11.5-14.5); White Blood Count 4.5 K/mcL (4.3-11.1)
[2019-04-17 03:21] LABS: Calcium 8.1 mg/dL (8.6-10.3); Magnesium 1.9 mg/dL (1.6-2.6); Potassium 3.3 mEq/L (3.5-5.1)
[2019-04-17] MEDS: *HR* Heparin 5,000 UNIT/ML VIAL SQ SCH ×2 (05:14→16:55)
[2019-04-17] MEDS ORDERED: Potassium Chloride 40 MEQ, Lidocaine 1% 2 ML in D5% in Water 500 ML IVPB ONE (08:03)
[2019-04-17] MEDS: Insulin LISPRO 300 UNITS/3 ML VIAL SQ SCH ×4 (08:27→20:37)
--- NOTE | 2019-04-17 09:18 | Electrocardiograph Report ---
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
--- NOTE | 2019-04-17 09:20 | Internal Med Progress Note ---
Hospitalist Progress Note - Encounter Date of Encounter: 04/17/19 Time of Encounter: 08:30 - Subjective Interval History: Mr Renner is currently admitted for confusion and fever. He remains moderate to high risk at this time. Mr Renner is alert and oriented. He is able to answer some questions for me. at bedside. I explain concern for Herpes encephalitis. No fever or chills. No CP or SOB. - Exam Vitals: Temp Pulse Resp BP Pulse Ox 98.0 F 62 16 191/89 96 04/17/19 06:51 04/17/19 06:51 04/17/19 06:51 04/17/19 06:51 04/17/19 06:51 Exam: Gen.: No acute distress. Interactive with me. Comfortable H: Normocephalic EENT: EOMI. Mucus membranes moist. Neck: Supple. No adenopathy. No nuchal rigidity Cardiac: RRR, . No tachycardia Pulmonary: CTA bilaterally, No wheeze Abdomen: soft. Nontender. No mass Neuro: moves all extremities, Expressive aphasia present Psych: Appropriate mood and behavior, Ext: No edema. Moves all equally. Skin: No rash. - Assessment and Plan (1) Acute metabolic encephalopathy Current Visit: Yes Status: Acute Assessment and Plan: Pt presented with fever and confusion. 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 Has improved with current treatment Will ask for neurology input regarding IV acyclovir and time. (2) Encephalitis due to human herpes simplex virus (HSV) Current Visit: Yes Status: Suspected Assessment and Plan: Pt presented to ED with fever and confusion with elevated CSF protein. PCR pending in CSF. Continue IV acyclovir. (3) Hypokalemia Current Visit: Yes Status: Acute Assessment and Plan: Persists today. Replace. (4) Chronic kidney disease Current Visit: Yes Status: Chronic Assessment and Plan: Creatinine appears to be baseline at this time. (5) Diabetes mellitus Current Visit: Yes Status: Chronic Assessment and Plan: Continue current management of blood sugar. (6) Aphasia as late effect of stroke Current Visit: Yes Status: Chronic Assessment and Plan: Chronic condition. - Time Spent with Patient Total time spent is greater than 50% in coordination of care (as documented) at patient's floor/unit and/or counseling patient: Internal Medicine: Result - Labs CBC & Chem 7: 04/17/19 02:25 04/17/19 02:25 Labs: Short CBC 04/17/19 Range/Units 02:25 WBC 4.5 (4.3-11.1) K/mcL Hgb 9.3 L (12.9-16.9) g/dL Hct 28.1 L (37.5-50.1) % Plt Count 158 (140-400) K/mcL BMP 04/17/19 02:25 Sodium 137 Potassium 3.3 L Chloride 104 Carbon Dioxide 28 BUN 16 Creatinine 1.41 H Glucose 130 H Calcium 8.1 L - ABG Interpretation ABG results: PT/INR, D-dimer PT 13.0 Seconds (9.4-12.1) H 04/14/19 23:35 Consult Discharge Plan - Plan [facility]errals: [facility] [Primary Care Provider] - (4) Chronic kidney disease Qualifiers: Chronic kidney disease stage: stage 3 (moderate) Qualified Code(s): N18.3 - Chronic kidney disease, stage 3 (moderate) (5) Diabetes mellitus Qualifiers: Diabetes mellitus type: type 2 Diabetes mellitus half-way insulin use: 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
[2019-04-17] MEDS: Acyclovir 750 MG in D5% in Water 250 ML IVPB SCH ×2 (09:31→20:36)
[2019-04-17] MEDS: 0.9 % Sodium Chloride 1,000 ML IVC SCH (11:25)
[2019-04-17 19:42] LABS: Magnesium 1.9 mg/dL (1.6-2.6); Potassium 3.5 mEq/L (3.5-5.1)
[2019-04-17 19:43] LABS: Troponin I < 0.03 ng/mL (< 0.04)
[2019-04-17] MEDS: Insulin DETEMIR 100 UNIT/ML X5UNITS SQ SCH (20:37)
[2019-04-18] MEDS: *HR* Heparin 5,000 UNIT/ML VIAL SQ SCH ×2 (04:58→16:38)
[2019-04-18 06:25] LABS: Hemoglobin 10.7 g/dL (12.9-16.9); Mean Corpuscular HGB Conc 34.5 g/dL (31.6-35.5); Mean Corpuscular Hemoglobin 29.6 pg (28.0-33.3); Mean Corpuscular Volume 85.6 fL (83.0-100.0); Mean Platelet Volume 9.7 fL (9.4-12.4); Platelet Count 196 K/mcL (140-400); Red Blood Count 3.62 M/mcL (4.19-5.50); Red Cell Distribution Width 12.3 % (11.5-14.5); White Blood Count 6.2 K/mcL (4.3-11.1)
[2019-04-18] MEDS: 0.9 % Sodium Chloride 1,000 ML IVC SCH ×2 (06:40→10:23)
[2019-04-18 06:45] LABS: BUN/Creatinine Ratio 12 (6-26); Blood Urea Nitrogen 14 mg/dL (8-23); Calcium 8.7 mg/dL (8.6-10.3); Carbon Dioxide 28 mEq/L (23-29); Chloride 102 mEq/L (98-107); Glucose 114 mg/dL (70-105); Osmolality,Calculated 285 (280-300); Potassium 3.4 mEq/L (3.5-5.1); Sodium 137 mEq/L (136-145); eGFR For African Americans > 60 (> 60); eGFR For Non-African Americans 59 (> 60)
[2019-04-18] MEDS: Insulin LISPRO 300 UNITS/3 ML VIAL SQ SCH ×4 (07:39→21:39)
--- NOTE | 2019-04-18 09:05 | Neurology Progress Note ---
Date of Encounter: 04/18/19 Time of Encounter: 09:05 Subjective Principal diagnosis: AMS Objective - Constitutional Vitals: Temp Pulse Resp BP Pulse Ox 98.0 F 77 16 149/81 97 04/18/19 07:38 04/18/19 07:38 04/18/19 07:38 04/18/19 07:38 04/18/19 07:38 Results - Laboratory Findings CBC and BMP: 04/18/19 06:04 04/18/19 06:04 Abnormal lab findings: Abnormal lab results RBC 3.62 M/mcL (4.19-5.50) L 04/18/19 06:04 Hgb 10.7 g/dL (12.9-16.9) L 04/18/19 06:04 Hct 31.0 % (37.5-50.1) L 04/18/19 06:04 PT 13.0 Seconds (9.4-12.1) H 04/14/19 23:35 Sodium 134 mEq/L (136-145) L 04/15/19 06:53 Potassium 3.4 mEq/L (3.5-5.1) L 04/18/19 06:04 1.41 mg/dL (0.70-1.30) H 04/17/19 02:25 Est GFR ( Amer) 59 (> 60) L 04/17/19 02:25 Est GFR (Non-Af Amer) 59 (> 60) L 04/18/19 06:04 Glucose 114 mg/dL (70-105) H 04/18/19 06:04 POC Glucose 202 mg/dL (70-99) H 04/17/19 20:24 7.7 % (-5.6) H 04/15/19 06:53 Calcium 8.1 mg/dL (8.6-10.3) L 04/17/19 02:25 6.3 g/dL (6.4-8.9) L 04/14/19 23:35 0.20 ng/mL (0.00-0.15) H 04/14/19 23:35 >=300 mg/dL (Neg-Trace) H 04/14/19 23:54 100 mg/dL (Normal) H 04/14/19 23:54 Trace (Negative) H 04/14/19 23:54 3-5 per hpf (0-3) H 04/14/19 23:54 3-5 per hpf (0-3) H 04/14/19 23:54 Ur Squamous Epith Cells Moderate per lpf (None-Few) H 04/14/19 23:54 103 mg/dL (40-70) H 04/15/19 01:15 118 mg/dL (15-45) H 04/15/19 01:15 Consult Discharge Plan - Plan [facility]errals: [facility] [Primary Care Provider] -
--- NOTE | 2019-04-18 09:57 | Neurology - Consult Note ---
<VerdinAndrewVinny C - Last Filed: 04/18/19 10:42> Date of Encounter: 04/18/19 Time of Encounter: 09:52 Assessment and Plan (1) Encephalitis due to human herpes simplex virus (HSV) Current Visit: Yes Status: Suspected Patient presented with fever and altered mental status, lumbar performed sharp revealed elevated protein and glucose without cellular component Viral encephalitis specifically herpes is suspected, IV acyclovir was initiated and the patient has improved clinically However, given original acellularity of CSF, and no immunosuppression, encephalitis/meningitis are less likely Currently the patient's clinical status is improved and stable, he is at baseline mental status per family and his neurological exam is relatively be nign, positive only for weakness that is chronic for him without new deficits, although he is generally weaker from hospital immobilization Given less likely diagnosis based on acellular CSF, it is difficult to determine recommended treatment course vs. discontinuation of Acyclovir Consider involvement of Infectious Disease team for recommendations on Acyclovir course and/or necessity Further recommendations per Dr. Vizcarra (2) Weakness Current Visit: Yes Status: Acute Patient and family state that he has had chronic issues with global weakness and ambulation even prior to CVA which resulted with residual right-sided deficits He was working with physical therapy prior to entering the hospital and family is requesting he work with physical therapy here to avoid relapse On my exam the patient is generally weak in the lower extremities without acute difference in laterality Agree with PT/OT consultation (3) History of CVA (cerebrovascular accident) Current Visit: No Status: Chronic Previous history of stroke, these remote infarcts were demonstrated on imaging, no new ischemia or infarct in images including CT and MRI of the head Known pituitary adenoma and meningioma were re-demonstrated on imaging without change Patient is currently on high-dose atorvastatin and clopidogrel, he is not on aspirin because he has an allergy Recommend continued medical therapy History of Present Illness Chief complaint: AMS HPI: Mr. Renner is a 74 year old male with a past medical history of prior CVA with residual deficits, diabetes, hyperlipidemia, hypertension who presented to the emergency department with his family for the chief concern of altered mental status. According to family the patient's mental status baseline waxes and wanes however he did worsen relatively in the day leading up to admission. Workup in the emergency department revealed temperature 101.8 and tachycardia. Chest x-ray was negative for acute process, head CT demonstrated pituitary adenoma and meningioma consistent with previous imaging. Lumbar puncture was performed which demonstrated elevated glucose and protein, he was started on Rocephin/ampicillin/vancomycin. Since then the patient's hospital course has consisted of treatment for suspected aspiration pneumonia and suspected herpes viral encephalitis with Zosyn and acyclovir. Zosyn has since been discontinued and acyclovir is continuing day 4. Neurology service was consulted for recommendations on treatment course. On my exam family was present and state that the patient's clinical condition has significantly improved and he is now at his baseline mental status. The patient denies any acute concerns or complaints. I explained to the patient and his family that we would evaluate the patient make recommendations on his current and continuing treatment course. Past Med Surg Social Fam HX - Past Medical History Medical history: CVA, diabetes, hyperlipidemia, hypertension Additional medical history: 2 brain tumor, cataracts Psychiatric history: no psych history - Past Surgical History Surgical History: appendectomy - Social History Smoking Status: Never smoker Smokeless Tobacco Status: No Alcohol use: none Drug use: none Medications and Allergies Tamsulosin [Flomax] 0.4 mg PO DAILY 09/30/17 [History] Atorvastatin Calcium 80 mg PO DAILY 04/15/19 [History] Clopidogrel [Plavix] 75 mg PO DAILY 04/15/19 [History] Dulaglutide [Trulicity] 1.5 mg SQ TU 04/15/19 [History] Insulin Glargine [Lantus] 17 unit SQ HS 04/15/19 [History] Losartan [Cozaar] 25 mg PO DAILY 04/15/19 [History] Pantoprazole Sodium [Protonix] 40 mg PO DAILY 04/15/19 [History] Allergy/AdvReac Type Severity Reaction Status Date / Time aspirin Allergy See Verified 04/14/19 22:55 Comments All Systems: The remainder of the systems were reviewed and are negative - Constitutional Constitutional ROS IM: no chills, no fever(s) - Cardiovascular Cardiovascular ROS IM: no chest pain - Respiratory Respiratory IM: no cough - Musculoskeletal Musculoskeletal ROS IM: muscle weakness - Neurological Neurological ROS: abnormal speech, weakness, no behavioral changes, no focal we akness, no numbness Physical Examination - Vital Signs Vital Signs: Initial Vital Signs Temp Pulse Resp BP Pulse Ox 101.8 F H 86 16 154/77 98 04/14/19 22:48 04/14/19 22:48 04/14/19 22:48 04/14/19 22:48 04/14/19 22:48 - Exam Exam: *CONSTITUTIONAL: Alert and oriented x3, no acute distress *GENERAL APPEARANCE OF PATIENT appears healthy and well groomed *EYES: pupils equal, round, reactive to light and accommodation, conjunctiva clear without masses or ulceration *GAIT AND STATION: Patient unable to get up from bed due to global weak ness *ASSESSMENT OF MUSCLE STRENGTH IN THE UPPER AND LOWER EXTREMITIES bilateral deltoid, bicep, tricep, psych arnp strength 5/5. hip flexors ,anterior tibialis, dorsoflexion of the foot 4/5 *MUSCLE TONE IN THE UPPER AND LOWER EXTREMITIES normal. No abnormal movements, fasciculations or atrophy identified. *ORIENTATION to person, situation, time and place *LANGUAGE AND FUNCTION no significant aphasia or dysarthia was noted. *ATTENTION AND CONCENTRATION are normal *FUND OF KNOWLEDGE aware of current events, past history, vocabulary *MENTAL attention span and concentration normal. *CN II visual bianchi intact *CN III,IV, PERRLA extraocular eye movements were full, no nystagmus and no ptosis noted. *CN V shows normal sensation and jaw opens symmetrically. *CN VII shows normal facial movement symmetrically, upper and lower manuel aterally. *CN VIII shows no significant hearing loss on exam *CN IX-X palate elevated symmetrically *CN XI normal strength in the sternocleidomastoid muscles, symmetrical shoulder shrugging. *CN XII tongue protruded in the midline, with normal strength and movement. *SENSORY EXAMINATION light touch intact *REFLEXES: deep tendon reflexes were normal and symmetrical , grade 2/4 diffusely, no pathological reflexes were noted. *CEREBELLAR TESTING normal finger to nose *PAIN LEVEL 0/10 - Constitutional General appearance: comfortable Results - Laboratory Findings CBC and BMP: 04/18/19 06:04 04/18/19 06:04 Abnormal lab findings: Abnormal lab results RBC 3.62 M/mcL (4.19-5.50) L 04/18/19 06:04 Hgb 10.7 g/dL (12.9-16.9) L 04/18/19 06:04 Hct 31.0 % (37.5-50.1) L 04/18/19 06:04 PT 13.0 Seconds (9.4-12.1) H 04/14/19 23:35 Sodium 134 mEq/L (136-145) L 04/15/19 06:53 Potassium 3.4 mEq/L (3.5-5.1) L 04/18/19 06:04 1.41 mg/dL (0.70-1.30) H 04/17/19 02:25 Est GFR ( Amer) 59 (> 60) L 04/17/19 02:25 Est GFR (Non-Af Amer) 59 (> 60) L 04/18/19 06:04 Glucose 114 mg/dL (70-105) H 04/18/19 06:04 POC Glucose 202 mg/dL (70-99) H 04/17/19 20:24 7.7 % (-5.6) H 04/15/19 06:53 Calcium 8.1 mg/dL (8.6-10.3) L 04/17/19 02:25 6.3 g/dL (6.4-8.9) L 04/14/19 23:35 0.20 ng/mL (0.00-0.15) H 04/14/19 23:35 >=300 mg/dL (Neg-Trace) H 04/14/19 23:54 100 mg/dL (Normal) H 04/14/19 23:54 Trace (Negative) H 04/14/19 23:54 3-5 per hpf (0-3) H 04/14/19 23:54 3-5 per hpf (0-3) H 04/14/19 23:54 Ur Squamous Epith Cells Moderate per lpf (None-Few) H 04/14/19 23:54 103 mg/dL (40-70) H 04/15/19 01:15 118 mg/dL (15-45) H 04/15/19 01:15 Consult Discharge Plan - Plan [facility]errals: [facility] [Primary Care Provider] - <Bernardo Vizcarra - Last Filed: 04/18/19 17:22> Date of Encounter: 04/18/19 Assessment and Plan (1) Altered mental status Current Visit: Yes Status: Acute Patient presented with fever and altered mental status, lumbar performed sharp revealed elevated protein and glucose without cellular component Viral encephalitis specifically herpes is suspected, IV acyclovir was initiated and the patient has improved clinically However, given original acellularity of CSF, and no immunosuppression, encephalitis/meningitis are less likely Currently the patient's clinical status is improved and stable, he is at baseline mental status per family and his neurological exam is relatively benign, positive only for weakness that is chronic for him without new deficits, although he is generally weaker from hospital immobilization Given less likely diagnosis based on acellular CSF, it is difficult to determine recommended treatment course vs. discontinuation of Acyclovir Consider involvement of Infectious Disease team for recommendations on Acyclovir course and/or necessity Further recommendations per Dr. Vizcarra. I have personally performed a [id number] assessment of the patient and have reviewed the PA/MANUFACTURING ENGINEERING PROFESSOR note. My impressions are as follows: I agree with the asses sment and plan as outlined above by Dr. Verdin. At this juncture I would feel that the likelihood of a central nervous system infectious process is low based on the lack of leukocytosis in the peripheral circulation, as well as in the cerebrospinal fluid. The initial seizure may been secondary to systemic viremia perhaps this may have contributed to his acute mental status change. However he is single return to his normal baseline status. I will reevaluate him in the morning. Infectious diseases assessment was appreciated as well. I am in agreement with the recommendation and plan. Qualifiers: Altered mental status type: unspecified Qualified Code(s): R41.82 - Altered mental status, unspecified (2) History of CVA (cerebrovascular accident) Current Visit: No Status: Chronic I have personally performed a [id number] assessment of the patient and have re viewed the PA/MANUFACTURING ENGINEERING PROFESSOR note. My impressions are as follows: I agree with the assessment and plan regarding his history of stroke as stated above. Maintain aggressive management of stroke risk factors along with atorvastatin and antiplatelet therapy. (3) Weakness Current Visit: Yes Status: Acute I have personally performed a [id number] assessment of the patient and have reviewed the PA/MANUFACTURING ENGINEERING PROFESSOR note. My impressions are as follows: I agree with Dr. Verdin's assessment and plan as stated above. History of Present Illness HPI: The chart was reviewed, the patient was seen and examined independently. The case was discussed with Dr. Verdin. I agree with his documentation of the history of present illness as stated above. Lumbar puncture was performed and revealed only 3 nucleated cells. Differential was not necessary as this is not likely suggestive of a central nervous system infectious process. CSF protein was elevated likely secondary to inactivity. CT imaging revealed no evidence of tumor abscess acute infarct or mass effect. MRI scan did reveal several large lacunar infarcts in addition to significant atrophy and severe white matter changes. Patient denied any headache, speech difficulty or neck stiffness. All Systems: The remainder of the systems were reviewed and are negative Review of Systems: The balance of the systems review is negative. Physical Examination - Vital Signs Vital Signs: Initial Vital Signs Temp Pulse Resp BP Pulse Ox 101.8 F H 86 16 154/77 98 04/14/19 22:48 04/14/19 22:48 04/14/19 22:48 04/14/19 22:48 04/14/19 22:48 - Exam Exam: I have personally performed a cpiy-pj-jmkh assessment of the patient and have reviewed the PA/MANUFACTURING ENGINEERING PROFESSOR note. My impressions are as follows: General Examination: *CONSTITUTIONAL: normal *GENERAL APPEARANCE OF PATIENT appears healthy and well groomed *EYES: pupils equal, round, reactive to light and accommodation, conjunctiva clear without masses or ulcerations, fundi normal. *CARDIOVASCULAR no peripheral edema, distal temperature normal, dorsalis pedis pulses normal. Refer to vital signs Musculoskeletal: *GAIT AND STATION- Not assessed due to excessive fatigue. *ASSESSMENT OF MUSCLE STRENGTH IN THE UPPER AND LOWER EXTREMITIES unable to examine in the traditional manner, however no evidence of focal deficits of the upper or lower extremities. normal psych arnp strength bilaterally. *MUSCLE TONE IN THE UPPER AND LOWER EXTREMITIES normal. Neurological: *ORIENTATION to person and place *RECURRENT AND REMOTE MEMORY intact *ATTENTION AND CONCENTRATION are normal *LANGUAGE FUNCTION no significant aphasia or dysarthia was noted. *FUND OF KNOWLEDGE aware of current events, past history, vocabulary *MENTAL attention span and concentration normal. *CN II optic fundi were normal, no papilledema noted. *CN III,IV, PERRLA extraocular eye movements were full, no nystagmus and no ptosis noted. *CN V shows normal sensation and jaw opens symmetrically. *CN VII shows normal facial movement symmetrically, upper and lower bilaterally. *CN VIII shows no significant hearing loss on examination in the office. *CN IX,,X palate elevated symmetrically and normal gag reflex was noted. *CN XI normal strength in the sternocleidomastoid muscles, symmetrical shoulder shrugging. *CN XII tongue protruded in the midline, with normal strength and movement. *SENSORY EXAMINATION pinprick sensation intact, and light touch(vibration sense). *REFLEXES: deep tendon reflexes were normal and symmetrical , grade 2/4 diffusely, no pathological reflexes were noted. *CEREBELLAR TESTING normal finger to nose, heel/knee/rosario, and tandem walk. *PAIN LEVEL Results - Laboratory Findings CBC and BMP: 04/18/19 06:04 04/18/19 06:04 Abnormal lab findings: Abnormal lab results RBC 3.62 M/mcL (4.19-5.50) L 04/18/19 06:04 Hgb 10.7 g/dL (12.9-16.9) L 04/18/19 06:04 Hct 31.0 % (37.5-50.1) L 04/18/19 06:04 PT 13.0 Seconds (9.4-12.1) H 04/14/19 23:35 Sodium 134 mEq/L (136-145) L 04/15/19 06:53 Potassium 3.4 mEq/L (3.5-5.1) L 04/18/19 06:04 1.41 mg/dL (0.70-1.30) H 04/17/19 02:25 Est GFR ( Amer) 59 (> 60) L 04/17/19 02:25 Est GFR (Non-Af Amer) 59 (> 60) L 04/18/19 06:04 Glucose 114 mg/dL (70-105) H 04/18/19 06:04 POC Glucose 202 mg/dL (70-99) H 04/17/19 20:24 7.7 % (-5.6) H 04/15/19 06:53 Calcium 8.1 mg/dL (8.6-10.3) L 04/17/19 02:25 6.3 g/dL (6.4-8.9) L 04/14/19 23:35 0.20 ng/mL (0.00-0.15) H 04/14/19 23:35 >=300 mg/dL (Neg-Trace) H 04/14/19 23:54 100 mg/dL (Normal) H 04/14/19 23:54 Trace (Negative) H 04/14/19 23:54 3-5 per hpf (0-3) H 04/14/19 23:54 3-5 per hpf (0-3) H 04/14/19 23:54 Ur Squamous Epith Cells Moderate per lpf (None-Few) H 04/14/19 23:54 103 mg/dL (40-70) H 04/15/19 01:15 118 mg/dL (15-45) H 04/15/19 01:15
[2019-04-18] MEDS: Acyclovir 750 MG in D5% in Water 250 ML IVPB SCH (10:10)
--- NOTE | 2019-04-18 12:31 | Infectious Disease Consult ---
Infectious Disease-Consult - Encounter Date/Time Date of Encounter: 04/18/19 - Data of Consult Patient: new to practice Consult date: 04/18/19 Requesting Physician: Juvencio Mcwilliams DO Primary Care Provider: PCP [facility] HPI: Mr. 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 The patient was admitted to the hospital 04/14/19 for FUO and altered mental status. We are consulted 04/18/19 for recommendations regarding the acyclovir. Briefly, the patient is a 74 year old male with a past medical history as states above. The patient presented to the ER on the day of admission with complaints of altered mental status. Upon arrival, he was febrile. He was otherwise hemodynamically stable. WBC was normal. Renal function was mildly abnormal with a creatinine of 1.43. Lactic acid and LFTs were within normal limits. Urinalysis appears contaminated with moderate epithelial cells. He had a chest x-ray that was negative. CT of the head was negative for acute abnormality. Blood cultures were obtained 2 sets are no growth to date. Procalcitonin was mildly elevated at 0.20. He underwent a bedside lumbar puncture that yielded clear CSF with a TNC of 3. Glucose was mildly elevated at 103 with a protein of 118. The culture and Gram stain were negative. He was given a dose of Rocephin and ampicillin and admitted to the hospital for further evaluation and treatment. Since admission, the patient has been afebrile and hemodynamically stable. His WBC has remained normal. He had a CT of the chest that showed findings consistent with esophagitis. 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 He was evaluated by speech therapy who recommended a mechanically altered diet with honey thick liquids. Neurology has been consulted as well. On admission, he was started on IV acyclovir. He was also started on IV Zosyn for possible aspiration. Currently, he is only on IV acyclovir. We have asked to evaluate and make further recommendations. During my exam today, the patient's is the one providing me with most of the information regarding the events leading up to this hospitalization. She tells me that he was in his usual state of health up until the evening that he presented to the ER. She states he had been working with physical therapy and when out on a walk by himself and was very hot outside. She states that later that night he was very weak and tired and unable to get up to the bathroom. She denies noticing the patient have any chills or rigors. She states he was not febrile at home. She states the patient did not complain of any headache or neck pain. No recent URI symptoms. No chest pain, shortness of breath, or cough. She does report that he sometimes chokes when he eats that leads to vomiting. The patient did not report any abdominal pain or urinary complaints. No oral thrush or skin rashes. Patient's tells me he was markedly improved yesterday and appears to be back to baseline today. The patient lives at home with his . 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 Denies tobacco, alcohol, or illicit drug use. States he had some type of hepatitis several years ago when he was in his 50s. States he was exposed to a great g randchild that also had a fever of unknown origin in a couple of weeks ago. - ROS Review of Systems: All systems reviewed and no additional remarkable complaints except as stated. - Results CBC & Chem 7: 04/19/19 04:10 04/19/19 04:10 - Exam Vitals: Temp Pulse Resp BP Pulse Ox 98.0 F 77 16 149/81 97 04/18/19 07:38 04/18/19 07:38 04/18/19 07:38 04/18/19 07:38 04/18/19 07:38 Exam: Head: Atraumatic, normal inspection, normocephalic. Eye: EOMI, PERRLA, no scleral icterus noted. ENT: Mucous membranes moist. No odontogenic infection noted. Neck: Normal inspection, no meningismus. Respiratory: Clear to auscultation. No rales, respiratory distress, rhonchi, or wheezes noted. Cardiovascular: Regular rate and rhythm, S1 and S2 audible. No murmurs, rubs, or gallops. GI: Soft, nondistended, normal bowel sounds. Extremities:No joint swelling, pedal edema, or tenderness noted. Back: Normal inspection. No vertebral tenderness noted. Neurological: Alert, oriented 3, no focal deficits. Slow to respond to some questions. Psychiatric: normal affect, normal mood. Skin: Dry, intact, warm. Normal color. No rashes. Tamsulosin [Flomax] 0.4 mg PO DAILY 09/30/17 [History] Atorvastatin Calcium 80 mg PO DAILY 04/15/19 [History] Clopidogrel [Plavix] 75 mg PO DAILY 04/15/19 [History] Dulaglutide [Trulicity] 1.5 mg SQ TU 04/15/19 [History] Insulin Glargine [Lantus] 17 unit SQ HS 04/15/19 [History] Losartan [Cozaar] 25 mg PO DAILY 04/15/19 [History] Pantoprazole Sodium [Protonix] 40 mg PO DAILY 04/15/19 [History] Allergy/AdvReac Type Severity Reaction Status Date / Time aspirin Allergy See Verified 04/14/19 22:55 Comments - Assessment and Plan (1) Fever Current Visit: Yes Status: Resolved MAXIMUM TEMPERATURE 101.8 on admission. No other sepsis criteria. Etiology: Unclear. Aspiration vs. viral syndrome vs. heat exhaustion vs. other. Meningitis/encephalitis less likely given no pleocytosis. Blood cultures drawn 04/14/19 are no growth to date [address] chest nonrevealing for acute infectious etiology, but did show some esophageal wall thickening concerning for esophagitis. Status post lumbar puncture that was nonrevealing for pleocytosis. Culture and Gram stain are negative. HSV PCR was ordered, but not sent per the micro-lab. CT of the head was negative for acute abnormality. Aspiration on the differential given the patient's history of CVA and known d ysphagia, although CXR and CT chest non-revealing. Procalcitonin 0.20 in the setting of HANY, which makes bacterial infection less likely as well. Resolved. Qualifiers: Fever type: unspecified Qualified Code(s): R50.9 - Fever, unspecified SNOMED Code(s): 641925271 (2) Altered mental status Current Visit: Yes Status: Acute Etiology: unclear. Viral syndrome vs. heat exhaustion vs. other. CT head negative for acute abnormality. Back to baseline per family report. Qualifiers: Altered mental status type: unspecified Qualified Code(s): R41.82 - Altered mental status, unspecified SNOMED Code(s): 696669263 (3) HANY (acute kidney injury) Current Visit: No Status: Acute Etiology unclear. Serum creatinine 1.43 on admission. Improved. SNOMED Code(s): 63320231, 27526789 (4) History of CVA (cerebrovascular accident) Current Visit: No Status: Chronic Diagnosed in November 2018. Residual aphasia, dysphagia, and right sided weakness. SNOMED Code(s): 772591929 (5) Hypertension Current Visit: Yes Status: Chronic Qualifiers: Hypertension type: essential hypertension Qualified Code(s): I10 - Essential (primary) hypertension SNOMED Code(s): 31307254 (6) Brain mass Current Visit: Yes Status: Chronic MRI brain showed unchanged meningioma and macroadenoma. Neurology consulted and following. SNOMED Code(s): 255835572 (7) Anemia Current Visit: Yes Status: Chronic Qualifiers: Anemia type: unspecified type Qualified Code(s): D64.9 - Anemia, unspecified SNOMED Code(s): 096007098 (8) Aphasia as late effect of stroke Current Visit: Yes Status: Chronic SNOMED Code(s): 009182733 (9) Weakness Current Visit: Yes Status: Chronic PT/OT per the primary team. SNOMED Code(s): 76460460 (10) Diabetes mellitus Current Visit: Yes Status: Chronic Recommend aggressive glucose monitoring and control. Management per the primary team. Qualifiers: Diabetes mellitus type: type 2 Diabetes mellitus terminal worker insulin use: with terminal worker use Diabetes mellitus complication status: with hyperglycemia Qualified Code(s): E11.65 - Type 2 diabetes mellitus with hyperglycemia; Z79.4 - custodial (current) use of insulin SNOMED Code(s): 00640826 (11) Esophagitis Current Visit: Yes Status: Acute Noted on CT chest. Could be contributing to the patient's aspiration. Consider GI to evaluate. SNOMED Code(s): 32502745 - Recommendations Recommendations: Exact etiology of the patient's fevers and altered mental status unclear, but leaning more towards noninfectious etiologies based on the information that we have including a minimally elevated pro calcitonin, negative blood cultures, and negative CSF fluid. At this point, can likely discontinue the IV acyclovir and observe. If the patient takes a turn to the worse and/or develops sepsis-like picture, recommend repeating blood cultures and restarting antivirals and broad-spectrum antibiotics. Past Med Surg Social Fam HX - Past Medical History Medical history: CVA, diabetes, hyperlipidemia, hypertension Additional medical history: 2 brain tumor, cataracts Psychiatric history: no psych history - Past Surgical History Surgical History: appendectomy - Social History Smoking Status: Never smoker Smokeless Tobacco Status: No Alcohol use: none Drug use: none Consult Discharge Plan - Plan [facility]errals: [facility] Care Provider[facility] - 04/22/19 1:00 pm - Attending Attestation I have personally performed a face to face evaluation on this patient. I have reviewed and agree with the care plan. History and Exam by me shows: This is an addendum to original report dictated by Liana Flores CNP. Please refer to Liana's note for full detail. Agree with Liana's history of present illness, review of systems and physical exam findings. Patient currently does not have any altered mental status. Awake alert oriented. No neck stiffness no headache. Assessment and plan: Fever etiology not clear aspiration pneumonia versus viral syndrome versus other. No signs of meningitis/encephalitis Altered mental status likely secondary to metabolic encephalopathy Acute kidney injury likely prerenal secondary to dehydration improved History of CVA Hypertension Brain mass unchanged from previously Recommendations I do not believe the patient has encephalitis or meningitis. Recommend stopping all meningitis treatment. No need for acyclovir. If HSV PCR comes back positive we will reevaluate. Consider getting a chest x-ray to rule out aspiration.
--- NOTE | 2019-04-18 18:05 | Internal Med Progress Note ---
Hospitalist Progress Note - Encounter Date of Encounter: 04/18/19 Time of Encounter: 08:35 - Subjective Interval History: Mr. Renner is 74-year-old man with past medical history of CVA, diabetes, hyperlipidemia ,hypertension. who presented to the ER due to fever and confusion today the patient was seen and examined he looked well he was lying down comfort able and his bed , he answers questions but most of questions were answered by the family he denies any fever no chest pain, no nausea, no vomiting, no change in bowel motion, no shortness of breath - Exam Vitals: Temp Pulse Resp BP Pulse Ox 98.3 F 79 14 167/77 99 04/18/19 14:49 04/18/19 14:49 04/18/19 14:49 04/18/19 14:49 04/18/19 14:49 Exam: Gen.: No acute distress. Interactive with me. Comfortable Neck: Supple. No adenopathy. No nuchal rigidity Cardiac: RRR, . No tachycardia Pulmonary: CTA bilaterally, No wheeze Abdomen: soft. Nontender. No mass Neuro: moves all extremities, Expressive aphasia present Psych: Appropriate mood and behavior, Ext: No edema. Moves all equally. Skin: No rash. - Assessment and Plan (1) Encephalitis due to human herpes simplex virus (HSV) Current Visit: Yes Status: Suspected Assessment and Plan: Patient presented with fever and confusion with high suspicion of viral encephalitis CSF shows increased protein and increased glucose Patient was on acyclovir today acyclovir was stopped according to ID recommendation His labs and vitals are within normal limits , WBC urinalysis chest x-ray was negative Blood culture and CSF culture negative Mental status improved Plan Continue vital and mental status monitoring Stop acyclovir as ID recommendation PT OT recommendation (2) Diabetes mellitus Current Visit: Yes Status: Chronic Assessment and Plan: Continue current management of blood sugar. (3) Brain mass Current Visit: Yes Status: Chronic (4) History of CVA (cerebrovascular accident) Current Visit: No Status: Chronic (5) DVT prophylaxis Current Visit: Yes Status: Acute - Time Spent with Patient Total time spent is greater than 50% in coordination of care (as documented) at patient's floor/unit and/or counseling patient: Internal Medicine: Result - Labs CBC & Chem 7: 04/18/19 06:04 04/18/19 06:04 Labs: Short CBC 04/18/19 Range/Units 06:04 WBC 6.2 (4.3-11.1) K/mcL Hgb 10.7 L (12.9-16.9) g/dL Hct 31.0 L (37.5-50.1) % Plt Count 196 (140-400) K/mcL BMP 04/17/19 04/18/19 18:55 06:04 Sodium 137 Potassium 3.5 3.4 L Chloride 102 Carbon Dioxide 28 BUN 14 Creatinine 1.20 Glucose 114 H Calcium 8.7 Cardiac Enzymes 04/17/19 Range/Units 18:55 Troponin I < 0.03 (< 0.04) ng/mL - ABG Interpretation ABG results: PT/INR, D-dimer PT 13.0 Seconds (9.4-12.1) H 04/14/19 23:35 - Impressions Impressions Brain MRI 04/15/19 05:07 IMPRESSION: No acute intracranial abnormality. Moderate chronic microvascular ischemic disease. Sellar/suprasellar mass, consistent with known pituitary macroadenoma, right middle cranial fossa meningioma have not significantly changed since 12/08/2018. D/ /15/2019 13:54:21 Ruchi Staples MD / niki Interpreting Provider: Ruchi Staples MD Consult Discharge Plan - Plan [facility]errals: [facility] [Primary Care Provider] - (2) Diabetes mellitus Qualifiers: Diabetes mellitus type: type 2 Diabetes mellitus shelter insulin use: with termite renewal inspector use Diabetes mellitus complication status: with hyperglycemia Qualified Code(s): E11.65 - Type 2 diabetes mellitus with hyperglycemia; Z79.4 - retirement (current) use of insulin
[2019-04-18] MEDS: Insulin DETEMIR 100 UNIT/ML X5UNITS SQ SCH (21:40)
--- NOTE | 2019-04-18 22:53 | Electrocardiograph Report ---
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
--- NOTE | 2019-04-18 23:01 | Electrocardiograph Report ---
[address] [place], [place] [address] Test Date: 2019-04-18 Pat Name: Hubert Renner Department: 113 Room: 3B Gender: M Spinner Hand: [id number] : 1945 Requested By: Juvencio Mcwilliams Order Number: [id number] Reading MD: Juan Dominguez Measurements Intervals [place] Rate: 72 P: 82 ND: 232 QRS: -48 QRSD: 130 T: -30 QT: 456 QTc: 480 Interpretive Statements SINUS RHYTHM WITH FIRST DEGREE AV BLOCK ATYPICAL RBBB LEFT AXIS DEVIATION LEFT VENTRICULAR HYPERTROPHY AND ST-T CHANGE POOR R-WAVE PROGRESSION POSSIBLE INFERIOR MYOCARDIAL INFARCTION, OF INDETERMINATE AGE Electronically Signed On 04-18-2019 22:59:50 EDT by Juan Dominguez
[2019-04-19] MEDS: *HR* Heparin 5,000 UNIT/ML VIAL SQ SCH (04:07)
[2019-04-19 04:43] LABS: Basophils % 0.5 %; Eosinophils # 0.3 K/mcL (0.0-0.6); Eosinophils % 5.3 %; Hematocrit 31.4 % (37.5-50.1); Hemoglobin 10.6 g/dL (12.9-16.9); Immature Granulocytes % 0.4 % (0-4); Lymphocytes # 2.5 K/mcL (0.6-4.6); Lymphocytes % 44.9 %; Mean Corpuscular HGB Conc 33.8 g/dL (31.6-35.5); Mean Corpuscular Hemoglobin 29.6 pg (28.0-33.3); Mean Corpuscular Volume 87.7 fL (83.0-100.0); Mean Platelet Volume 9.8 fL (9.4-12.4); Monocytes # 0.4 K/mcL (0.0-1.3); Monocytes % 6.6 %; Neutrophils # 2.4 K/mcL (1.6-8.9); Platelet Count 205 K/mcL (140-400); Red Blood Count 3.58 M/mcL (4.19-5.50); Red Cell Distribution Width 12.5 % (11.5-14.5); Segmented Neutrophils % 42.3 %; White Blood Count 5.6 K/mcL (4.3-11.1)
[2019-04-19 05:01] LABS: BUN/Creatinine Ratio 12 (6-26); Blood Urea Nitrogen 14 mg/dL (8-23); Calcium 8.1 mg/dL (8.6-10.3); Carbon Dioxide 27 mEq/L (23-29); Chloride 106 mEq/L (98-107); Glucose 144 mg/dL (70-105); Osmolality,Calculated 293 (280-300); Potassium 3.4 mEq/L (3.5-5.1); Sodium 140 mEq/L (136-145); eGFR For African Americans > 60 (> 60); eGFR For Non-African Americans > 60 (> 60)
--- NOTE | 2019-04-19 09:05 | Discharge Summary ---
- NOTES TO OUTPATIENT PROVIDER Notes to Outpatient Provider: Patient was admitted due to fever and confusion , there was suspicion of viral encephalitis and aspiration pneumonia. Patient feels better , he is back to his baseline mental status . We discontinue his antibiotic . pt / ot recommend home health . 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 Renner is a 74 year old male he was admitted due to fever and altered mental state tachycardia and temperature was 101.8. Chest x-ray was done and was negative for acute process .CT of brain was negative for any acute change . lumbar puncture was performed to him and show elevated protein and glucose without cellular component. he was started on Rocephin and ampicillin and vancomycin . viral encephalitis was suspected especially due to hsv and acyclovir IV was initiated.the neurology was consulted and following up with him . we treated the patient with zosyn due suspicion of aspiration pneumonia . we stopped IV acyclovir yesterday according to ID consultation. Currently the patient's clinical status is improved and stable he is at baseline mental status and we restart him on soft diet . Patient is discharged to home health care . With continue his home medication. And he is advised to come back to hospital if he has any complaint . patient stay clear and understanding the treatment plan . Discharge discussed with: patient, family - Time Spent with Patient Total time spent providing and/or coordinating discharge services: - Discharge Medications Prescriptions: Continued Tamsulosin [Flomax] 0.4 mg PO DAILY Insulin Glargine [Lantus] 17 unit SQ HS Dulaglutide [Trulicity] 1.5 mg SQ TU Atorvastatin Calcium 80 mg PO DAILY Clopidogrel [Plavix] 75 mg PO DAILY Losartan [Cozaar] 25 mg PO DAILY Pantoprazole Sodium [Protonix] 40 mg PO DAILY Home Medications: Tamsulosin [Flomax] 0.4 mg PO DAILY 09/30/17 [History] Atorvastatin Calcium 80 mg PO DAILY 04/15/19 [History] Clopidogrel [Plavix] 75 mg PO DAILY 04/15/19 [History] Dulaglutide [Trulicity] 1.5 mg SQ TU 04/15/19 [History] Insulin Glargine [Lantus] 17 unit SQ HS 04/15/19 [History] Losartan [Cozaar] 25 mg PO DAILY 04/15/19 [History] Pantoprazole Sodium [Protonix] 40 mg PO DAILY 04/15/19 [History] Allergies/Adverse Reactions: Allergy/AdvReac Type Severity Reaction Status Date / Time aspirin Allergy See Verified 04/14/19 22:55 Comments Date of admission: 04/15/19 05:49 [facility] care physician: [facility] Consults: 04/17/19 14:58 Consult to Neurology [CONS] Routine Consulting Provider: [facility] Reason for Consult: Possible herpes encephalitis Call Completed: Yes 04/18/19 04:11 Consult to PICC team [Consult to Invasive Line Access Team] [CONS] Routine Reason for Consult: Powerglide not working Line Type: EPIV 04/18/19 09:31 Consult to Occupational Therapy [CONS] Routine Comment: Evaluate, develop and implement POC Reason for Consult: CVA R/O Does patient have active BEDREST order?: No Is patient medically & hemodynamically stable?: Yes Patient assessed for mobility or mobilized this visit?: Yes Consult to Physical Therapy [CONS] Routine Comment: Evaluate, develop and implement POC Reason for Consult: CVA R/O Does patient have active BEDREST order?: No Is patient medically & hemodynamically stable?: Yes Patient assessed for mobility or mobilized this visit?: Yes 04/18/19 12:28 Consult to Clinical Applications Specialist [CONS] Routine Reason for SW Consult: Posiible IV ATB 04/18/19 15:16 Consult to Infectious Diseases [CONS] Routine Consulting Provider: Infectious Disease [facility] Reason for Consult: Concern for HSV encephalitis Call Completed: Yes Discharging clinician: Juvencio Mcwilliams Anticipated date of discharge: 04/19/19 - Constitutional Vitals: Temp Pulse Resp BP Pulse Ox 98.3 F 84 16 157/82 98 04/19/19 07:00 04/19/19 07:00 04/19/19 07:00 04/19/19 07:00 04/19/19 07:00 General appearance: Present: A&O X 3, no acute distress Exam: . - Head Head exam: Present: atraumatic, normal inspection - Neck Neck exam general surgery: Present: full ROM, normal inspection, supple - Respiratory Respiratory exam: Present: CTAB - Cardiovascular Cardiovascular exam: Present: RRR, +S1, +S2 - GI/Abdominal GI/Abdominal exam: Present: normal bowel sounds, soft - Neurological Exam Neurological exam: Present: alert - Psychiatric Psychiatric exam: Present: normal affect - Skin Skin exam: Present: intact - Patient Status Disposition: Home Health Service Condition: Fair Functional capacity at discharge: independent ambulation Overall status at discharge: patient is progressing back to baseline - Discharge Instructions Additional Instructions: Patient is asked to follow-up with a primary care provider and to follow-up with a physical therapist - Diet and Activity Activity: as per physical therapy Diet: diabetic diet, low salt diet, other (soft diet and honey thickened )
[2019-04-19] MEDS: Insulin LISPRO 300 UNITS/3 ML VIAL SQ SCH ×2 (09:15→12:27)
--- NOTE | 2019-04-19 10:13 | Neurology Progress Note ---
<Vinny Verdin Noé - Last Filed: 04/19/19 10:34> Date of Encounter: 04/19/19 Time of Encounter: 10:13 Assessment and Plan (1) Encephalitis due to human herpes simplex virus (HSV) Status: Ruled-out Patient was being treated for encephalitis, less likely based on acellular CSF and lack of leukocytosis on CBC Infectious disease recommendation was to discontinue acyclovir, agree and appreciate recommendation Patient has significantly improved clinically, he is alert and oriented and generalized weakness has improved He was sitting up in bed for me today, and lower extremities were 5 out of 5 motor strength At this point I suspect original symptoms may have been due to acute viremia possibly coupled with heat exhaustion Regardless at this point patient is clinically improved and would likely benefit most from outpatient physical therapy From documentation appears hospitalist team plans to discharge today, I agree with this plan Please reconsult any further questions, further recommendations per Dr. Vizcarra (2) Weakness Status: Chronic Weakness, as described above, has improved (3) History of CVA (cerebrovascular accident) Status: Chronic History of CVA, no focal deficits this admission, continue current medical management and risk factor modification Subjective Principal diagnosis: AMS Interval history: No acute events overnight, no acute complaints this morning. I informed Mr. Renner that we are no longer concerned about encephalitis given his lack of convincing CSF results, and input from infectious disease. I informed him that it appears the hospitalist team is considering discharging him today and neurology has no further recommendations. He understood and agreed with this plan of care. Objective - Constitutional Vitals: Temp Pulse Resp BP Pulse Ox 98.3 F 84 16 157/82 98 04/19/19 07:00 04/19/19 07:00 04/19/19 07:00 04/19/19 07:00 04/19/19 07:00 Exam: CONSTITUTIONAL: Alert and oriented x3, no acute distress *GENERAL APPEARANCE OF PATIENT appears healthy and well groomed *EYES: pupils equal, round, reactive to light and accommodation, conjunctiva clear without masses or ulceration *GAIT AND STATION: Not tested due to fall risk *ASSESSMENT OF MUSCLE STRENGTH IN THE UPPER AND LOWER EXTREMITIES bilateral deltoid, bicep, tricep, e learning designer strength 5/5. hip flexors ,anterior tibialis, dorsoflexion of the foot 5/5 improved from yesterday *MUSCLE TONE IN THE UPPER AND LOWER EXTREMITIES normal. No abnormal movements, fasciculations or atrophy identified. *ORIENTATION to person, situation, time and place *LANGUAGE AND FUNCTION no significant aphasia or dysarthia was noted. *ATTENTION AND CONCENTRATION are normal *FUND OF KNOWLEDGE aware of current events, past history, vocabulary *MENTAL attention span and concentration normal. *CN II visual bianchi intact *CN III,IV, PERRLA extraocular eye movements were full, no nystagmus and no ptosis noted. *CN V shows normal sensation and jaw opens symmetrically. *CN VII shows normal facial movement symmetrically, upper and lower bilaterally. *CN VIII shows no significant hearing loss on exam *CN IX-X palate elevated symmetrically *CN XI normal strength in the sternocleidomastoid muscles, symmetrical shoulder shrugging. *CN XII tongue protruded in the midline, with normal strength and movement. *SENSORY EXAMINATION light touch intact *REFLEXES: deep tendon reflexes were normal and symmetrical , grade 2/4 diffusely, no pathological reflexes were noted. *CEREBELLAR TESTING normal finger to nose *PAIN LEVEL 0/10 Results - Laboratory Findings CBC and BMP: 04/19/19 04:10 04/19/19 04:10 Abnormal lab findings: Abnormal lab results RBC 3.58 M/mcL (4.19-5.50) L 04/19/19 04:10 Hgb 10.6 g/dL (12.9-16.9) L 04/19/19 04:10 Hct 31.4 % (37.5-50.1) L 04/19/19 04:10 PT 13.0 Seconds (9.4-12.1) H 04/14/19 23:35 Sodium 134 mEq/L (136-145) L 04/15/19 06:53 Potassium 3.4 mEq/L (3.5-5.1) L 04/19/19 04:10 1.41 mg/dL (0.70-1.30) H 04/17/19 02:25 Est GFR ( Amer) 59 (> 60) L 04/17/19 02:25 Est GFR (Non-Af Amer) 59 (> 60) L 04/18/19 06:04 Glucose 144 mg/dL (70-105) H 04/19/19 04:10 POC Glucose 233 mg/dL (70-99) H 04/18/19 21:13 7.7 % (-5.6) H 04/15/19 06:53 Calcium 8.1 mg/dL (8.6-10.3) L 04/19/19 04:10 6.3 g/dL (6.4-8.9) L 04/14/19 23:35 0.20 ng/mL (0.00-0.15) H 04/14/19 23:35 >=300 mg/dL (Neg-Trace) H 04/14/19 23:54 100 mg/dL (Normal) H 04/14/19 23:54 Trace (Negative) H 04/14/19 23:54 3-5 per hpf (0-3) H 04/14/19 23:54 3-5 per hpf (0-3) H 04/14/19 23:54 Ur Squamous Epith Cells Moderate per lpf (None-Few) H 04/14/19 23:54 103 mg/dL (40-70) H 04/15/19 01:15 118 mg/dL (15-45) H 04/15/19 01:15 Consult Discharge Plan - Plan Instructions: Hyponatremia (DC), Fever in Adults (GEN), Hypokalemia (DC), Syncope (DC), Altered Mental Status (GEN) Additional Instructions: Patient is asked to follow-up with a primary care provider and to follow-up with a physical therapist [facility]: [facility] Provider[facility] - <Bernardo Vizcarra - Last Filed: 04/28/19 07:46> Date of Encounter: 04/28/19 Assessment and Plan (1) Altered mental status Status: Acute Qualifiers: Altered mental status type: unspecified Qualified Code(s): R41.82 - Altered mental status, unspecified (2) History of CVA (cerebrovascular accident) Status: Chronic (3) Weakness Status: Chronic Objective - Constitutional Vitals: Temp Pulse Resp BP Pulse Ox 98.4 F 70 16 105/62 97 04/19/19 12:16 04/19/19 12:16 04/19/19 12:16 04/19/19 12:16 04/19/19 12:16 Results - Laboratory Findings CBC and BMP: 04/19/19 04:10 04/19/19 04:10 Abnormal lab findings: Abnormal lab results RBC 3.58 M/mcL (4.19-5.50) L 04/19/19 04:10 Hgb 10.6 g/dL (12.9-16.9) L 04/19/19 04:10 Hct 31.4 % (37.5-50.1) L 04/19/19 04:10 PT 13.0 Seconds (9.4-12.1) H 04/14/19 23:35 Sodium 134 mEq/L (136-145) L 04/15/19 06:53 Potassium 3.4 mEq/L (3.5-5.1) L 04/19/19 04:10 Creatinine 1.41 mg/dL (0.70-1.30) H 04/17/19 02:25 Est GFR ( Amer) 59 (> 60) L 04/17/19 02:25 Est GFR (Non-Af Amer) 59 (> 60) L 04/18/19 06:04 Glucose 144 mg/dL (70-105) H 04/19/19 04:10 POC Glucose 145 mg/dL (70-99) H 04/19/19 12:14 Hemoglobin A1c 7.7 % (-5.6) H 04/15/19 06:53 Calcium 8.1 mg/dL (8.6-10.3) L 04/19/19 04:10 Serum Total Protein 6.3 g/dL (6.4-8.9) L 04/14/19 23:35 Procalcitonin 0.20 ng/mL (0.00-0.15) H 04/14/19 23:35 Urine Protein >=300 mg/dL (Neg-Trace) H 04/14/19 23:54 Urine Glucose (UA) 100 mg/dL (Normal) H 04/14/19 23:54 Urine Blood Trace (Negative) H 04/14/19 23:54 Urine Microscopic RBC 3-5 per hpf (0-3) H 04/14/19 23:54 Urine Microscopic WBC 3-5 per hpf (0-3) H 04/14/19 23:54 Ur Squamous Epith Cells Moderate per lpf (None-Few) H 04/14/19 23:54 CSF Glucose 103 mg/dL (40-70) H 04/15/19 01:15 CSF Total Protein 118 mg/dL (15-45) H 04/15/19 01:15 HSV II Glycoprot G IgG 1.62 IV (<=0.89) H 04/15/19 03:29
[2019-04-19 12:17] VITALS: BP 105/62
--- NOTE | 2019-04-19 14:36 | Physician Discharge Referral ---
Home Health/Hosp Referral Info Transfer to: Home Health Provider in Charge Post Discharge: PCP - Diagnosis (1) Encephalitis due to human herpes simplex virus (HSV) Status: Ruled-out (2) Diabetes mellitus Status: Chronic (3) Brain mass Status: Chronic (4) History of CVA (cerebrovascular accident) Status: Chronic (5) DVT prophylaxis Status: Acute - Respiratory Orders Smoking Cessation: Smoking cessation has been advised. For more information, call the [place] Tobacco Quit Line at 5-816-PEHV-NOW. - Diet/Nutrition Diet/Nutrition Orders: Mechanical Soft (and honey thickened) - Activity Activity Orders: Ambulate - Services Needed Following services are medically necessary services: Home Health Aide, Physical Therapy, Occupational Therapy, Speech Therapy - Transfer Medications Home Medications: Tamsulosin [Flomax] 0.4 mg PO DAILY 09/30/17 [History] Atorvastatin Calcium 80 mg PO DAILY 04/15/19 [History] Clopidogrel [Plavix] 75 mg PO DAILY 04/15/19 [History] Dulaglutide [Trulicity] 1.5 mg SQ TU 04/15/19 [History] Insulin Glargine [Lantus] 17 unit SQ 04/15/19 [History] Losartan [Cozaar] 25 mg PO DAILY 04/15/19 [History] Pantoprazole Sodium [Protonix] 40 mg PO DAILY 04/15/19 [History] Allergies/Adverse Reactions: Allergy/AdvReac Type Severity Reaction Status Date / Time aspirin Allergy See Verified 04/14/19 22:55 Comments Certification: Further, I certify that my clinical findings support that this patient is homebo und (i.e. absences from home require considerable and taxing effort and are for medical reasons or denominational services or infrequently or short duration when for other reasons) because: Homebound Reason: Patient requires assistance of a person or device to safely leave home, Leaving home requires considerable and taxing effort due to condition Attestation: My signature below is to certify that this patient is under my care and that I, or nurse practitioner, or a physician's assistant finance director working with me, has a [id number] encounter with this patient.
[2019-04-20 16:12] LABS: HSV Source CSF
[2019-04-21 10:51] LABS: HSV 1 Glycoprotein G IgG CSF 0.8 IV (<=0.89)
--- NOTE | 2019-04-22 11:03 | Electrocardiograph Report ---
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
[2019-04-23 10:01] LABS: HSV 2 Glycoprotein G IgG CSF 1.62 IV (<=0.89)
== END 2019-04-19 15:05 | disposition home health service (06) | DRG 871 ==
LOC: 3BNU 22:43 → EMEROOARM 22:43 → 3BNU 04-15 04:20 → SUATTDRO 04-15 05:49
PROVIDERS: ADMIT Internal Medicine; ATTEND Internal Medicine

== ENCOUNTER 2019-12-29 09:39 | Observation (INO) ==
[2019-12-29 10:23] LABS: Basophils % 0.5 %; Eosinophils # 0.2 K/mcL (0.0-0.6); Eosinophils % 2.7 %; Hematocrit 31.3 % (37.5-50.1); Hemoglobin 10.3 g/dL (12.9-16.9); Immature Granulocytes % 0.2 % (0-4); Lymphocytes # 2.2 K/mcL (0.6-4.6); Lymphocytes % 33.6 %; Mean Corpuscular HGB Conc 32.9 g/dL (31.6-35.5); Mean Corpuscular Hemoglobin 29.9 pg (28.0-33.3); Mean Corpuscular Volume 90.7 fL (83.0-100.0); Mean Platelet Volume 10.1 fL (9.4-12.4); Monocytes # 0.5 K/mcL (0.0-1.3); Neutrophils # 3.6 K/mcL (1.6-8.9); Platelet Count 222 K/mcL (140-400); Red Blood Count 3.45 M/mcL (4.19-5.50); Red Cell Distribution Width 12.8 % (11.5-14.5); White Blood Count 6.4 K/mcL (4.3-11.1)
[2019-12-29 10:45] LABS: Albumin 4.1 g/dL (3.5-5.7); Albumin/Globulin Ratio 1.8 (1.1-2.2); Bilirubin,Direct 0.1 mg/dL (0.0-0.2); Bilirubin,Indirect 0.2 mg/dL (0.0-1.0); Bilirubin,Total 0.3 mg/dL (0.3-1.0); Calcium 9.1 mg/dL (8.6-10.3); Globulin 2.3 g/dL (2.4-3.5); Potassium 3.7 mEq/L (3.5-5.1); Total Protein 6.4 g/dL (6.4-8.9)
[2019-12-29 10:50] LABS: Troponin I 0.06 ng/mL (< 0.04)
[2019-12-29] MEDS ORDERED: Naloxone 0.4 MG/ML INJ IVP PRN (12:55)
[2019-12-29] MEDS ORDERED: Dextrose Gel 15 GM/37.5 ML TUBE PO PRN ×2 (12:57)
[2019-12-29] MEDS ORDERED: D5% in Water 1,000 ML IVC PRN (12:57)
[2019-12-29] MEDS ORDERED: *HR* Dextrose 50 % in Water (Syg) 50 ML SYRINGE IVP PRN (12:57)
[2019-12-29] MEDS: Insulin LISPRO 300 UNITS/3 ML VIAL SQ SCH (18:11)
[2019-12-29] MEDS: *HR* Heparin 5,000 UNIT/ML VIAL SQ SCH (18:13)
[2019-12-29] MEDS ORDERED: Insulin DETEMIR 100 UNIT/ML X5UNITS SQ SCH (21:00)
[2019-12-30 04:26] LABS: Basophils % 0.4 %; Eosinophils # 0.1 K/mcL (0.0-0.6); Eosinophils % 2.5 %; Hematocrit 30.8 % (37.5-50.1); Hemoglobin 10.3 g/dL (12.9-16.9); Immature Granulocytes % 0.2 % (0-4); Lymphocytes # 2.2 K/mcL (0.6-4.6); Lymphocytes % 39.5 %; Mean Corpuscular HGB Conc 33.4 g/dL (31.6-35.5); Mean Corpuscular Hemoglobin 29.8 pg (28.0-33.3); Monocytes # 0.4 K/mcL (0.0-1.3); Monocytes % 7.1 %; Neutrophils # 2.8 K/mcL (1.6-8.9); Platelet Count 219 K/mcL (140-400); Red Blood Count 3.46 M/mcL (4.19-5.50); Red Cell Distribution Width 12.6 % (11.5-14.5); Segmented Neutrophils % 50.3 %; White Blood Count 5.6 K/mcL (4.3-11.1)
[2019-12-30 04:43] LABS: BUN/Creatinine Ratio 15 (6-26); Blood Urea Nitrogen 19 mg/dL (8-23); Calcium 8.9 mg/dL (8.6-10.3); Carbon Dioxide 27 mEq/L (23-29); Chloride 105 mEq/L (98-107); Glucose 100 mg/dL (70-105); Magnesium 2.2 mg/dL (1.6-2.6); Osmolality,Calculated 286 (280-300); Potassium 3.8 mEq/L (3.5-5.1); Sodium 137 mEq/L (136-145); eGFR For African Americans > 60 (> 60); eGFR For Non-African Americans 53 (> 60)
[2019-12-30] MEDS: *HR* Heparin 5,000 UNIT/ML VIAL SQ SCH (05:55)
[2019-12-30] MEDS: Insulin LISPRO 300 UNITS/3 ML VIAL SQ SCH (07:47)
[2019-12-30] MEDS ORDERED: Regadenoson 0.4 MG/5 ML SYRINGE IVP ONE (08:34)
[2019-12-30 11:57] VITALS: BP 189/82
== END 2019-12-30 14:30 | disposition home or self-care (01) ==
LOC: 3BNU 09:39 → EMEROOARM 09:39 → 3BNU 11:43
PROVIDERS: ADMIT Internal Medicine; ATTEND Internal Medicine

== ENCOUNTER 2022-06-04 14:04 | Inpatient (IN) ==
[2022-06-04] MEDS ORDERED: 0.9 % Sodium Chloride 1,000 ML IVC ONE (14:24)
[2022-06-04] MEDS ORDERED: Iopamidol - 370 500 ML MLS IVP ONE (14:27)
[2022-06-04 15:01] LABS: Basophils % 0.2 %; Eosinophils # 0.1 K/mcL (0.0-0.6); Eosinophils % 1.2 %; Hematocrit 32.5 % (37.5-50.1); Hemoglobin 10.5 g/dL (12.9-16.9); Immature Granulocytes % 0.2 % (0-4); Lymphocytes # 2.1 K/mcL (0.6-4.6); Lymphocytes % 22.3 %; Mean Corpuscular HGB Conc 32.3 g/dL (31.6-35.5); Mean Corpuscular Hemoglobin 29.3 pg (28.0-33.3); Mean Corpuscular Volume 90.8 fL (83.0-100.0); Mean Platelet Volume 10.1 fL (9.4-12.4); Monocytes # 0.6 K/mcL (0.0-1.3); Monocytes % 6.1 %; Neutrophils # 6.5 K/mcL (1.6-8.9); Platelet Count 236 K/mcL (140-400); Red Blood Count 3.58 M/mcL (4.19-5.50); Red Cell Distribution Width 13.6 % (11.5-14.5); White Blood Count 9.3 K/mcL (4.3-11.1)
[2022-06-04 15:08] LABS: INR 1.2; Prothrombin Time 13.6 Seconds (9.4-12.1)
[2022-06-04 15:11] LABS: Activated Partial Thrombo Time 27.7 Seconds (26.0-36.0)
[2022-06-04 15:22] LABS: Alanine Aminotransferase 10 Units/L (7-52); Albumin 3.8 g/dL (3.5-5.7); Albumin/Globulin Ratio 1.4 (1.1-2.2); Alkaline Phosphatase 60 Units/L (34-104); Aspartate Amino Transferase 14 Units/L (13-39); BUN/Creatinine Ratio 23 (6-26); Bilirubin,Total 0.5 mg/dL (0.3-1.0); Blood Urea Nitrogen 26 mg/dL (8-23); Calcium 8.7 mg/dL (8.6-10.3); Carbon Dioxide 27 mEq/L (23-29); Chloride 100 mEq/L (98-107); Globulin 2.7 g/dL (2.4-3.5); Glucose 196 mg/dL (70-105); Lipase 9 Units/L (11-82); Osmolality,Calculated 292 (280-300); Potassium 3.9 mEq/L (3.5-5.1); Sodium 136 mEq/L (136-145); Total Protein 6.5 g/dL (6.4-8.9); Troponin I < 0.03 ng/mL (< 0.04)
[2022-06-04 16:14] LABS: Influenza A PCR Negative (Negative); Influenza B PCR Negative (Negative); Resp. Syncytial Virus PCR Negative (Negative)
[2022-06-04 16:28] LABS: SARS-CoV-2 by PCR (In House) Negative (Negative)
[2022-06-04 17:11] LABS: Bacteria,Urine Few per hpf (None-Few); Bilirubin,Urine Negative (Negative); Blood,Urine Negative (Negative); Clarity,Urine Turbid (Clear); Color,Urine Yellow (Yellow); Glucose,Urine (UA) Normal (Normal); Ketones,Urine Negative (Negative); Leukocyte Esterase,Urine Moderate (Negative); Mucus,Urine Few per lpf (None-Few); Nitrite,Urine Negative (Negative); PH,Urine 5.5 pH Units (5.0-8.0); Protein,Urine 200 mg/dL (Neg-Trace); RBC,Urine 0-3 per hpf (0-3); Specific Gravity,Urine 1.022 (1.010-1.025); Squamous Epithelial Cell,Urine Few per hpf (None-Few); Urobilinogen,Urine Normal (Normal); WBC,Urine 0-3 per hpf (0-3)
[2022-06-04] MEDS ORDERED: Naloxone 0.4 MG/ML INJ IVP PRN (18:19)
[2022-06-04] MEDS ORDERED: Dextrose Gel 15 GM/37.5 ML TUBE PO PRN ×2 (19:07)
[2022-06-04] MEDS ORDERED: D5% in Water 1,000 ML IVC PRN (19:07)
[2022-06-04] MEDS ORDERED: *HR* Dextrose 50 % in Water (Syg) 50 ML SYRINGE IVP PRN (19:07)
[2022-06-04 20:52] LABS: Estimated Average Glucose 186 mg/dl; Hemoglobin A1C 8.1 %
[2022-06-04 21:12] LABS: % Iron Saturation 7 % (20-55); Iron 17 mcg/dL (65-175); Magnesium 1.9 mg/dL (1.6-2.6); Transferrin 168 mg/dL (203-362)
[2022-06-04 21:30] LABS: Ferritin 235 ng/mL (20-250)
[2022-06-04] MEDS: cefTRIAXone 1,000 MG in Water for inj. (sterile) 10 ML IVP SCH (23:12)
[2022-06-04] MEDS: 0.9 % Sodium Chloride 1,000 ML IVC SCH (23:22)
[2022-06-05 02:51] LABS: Folate > 22.3 ng/mL (3.0-16.0); Vitamin B12 304 pg/mL (250-1100)
[2022-06-05] MEDS: Insulin LISPRO 300 UNITS/3 ML VIAL SUBQ SCH ×4 (04:07→17:17)
[2022-06-05 05:41] LABS: Basophils % 0.5 %; Eosinophils # 0.2 K/mcL (0.0-0.6); Eosinophils % 2.9 %; Hematocrit 35.2 % (37.5-50.1); Hemoglobin 11.4 g/dL (12.9-16.9); Immature Granulocytes % 0.3 % (0-4); Lymphocytes # 2.2 K/mcL (0.6-4.6); Mean Corpuscular HGB Conc 32.4 g/dL (31.6-35.5); Mean Corpuscular Hemoglobin 29.4 pg (28.0-33.3); Mean Corpuscular Volume 90.7 fL (83.0-100.0); Mean Platelet Volume 10.6 fL (9.4-12.4); Monocytes # 0.3 K/mcL (0.0-1.3); Monocytes % 5.7 %; Neutrophils # 3.1 K/mcL (1.6-8.9); Platelet Count 188 K/mcL (140-400); Red Blood Count 3.88 M/mcL (4.19-5.50); Red Cell Distribution Width 13.7 % (11.5-14.5); Segmented Neutrophils % 53.6 %; White Blood Count 5.8 K/mcL (4.3-11.1)
[2022-06-05 08:59] LABS: Calcium 8.6 mg/dL (8.6-10.3); Chol/HDL Ratio 5.2 (0-4.9); Potassium 3.4 mEq/L (3.5-5.1)
[2022-06-05] MEDS: Pantoprazole 40 MG VIAL IVP SCH (09:09)
[2022-06-05] MEDS: 0.9 % Sodium Chloride 1,000 ML IVC SCH (12:46)
[2022-06-05] MEDS ORDERED: SODIUM CHLORIDE/NAHCO3/KCL/PEG 4,000 ML SOLN.RECON PO ONE (17:00)
[2022-06-05] MEDS: cefTRIAXone 1,000 MG in Water for inj. (sterile) 10 ML IVP SCH (21:18)
[2022-06-05 21:48] LABS: Adenovirus F 40/41 PCR Not detected (Not detect); Astrovirus PCR Not detected (Not detect); C.difficile Toxin A/B Gene PCR Not detected (Not detect); Campylobacter by PCR Not detected (Not detect); Cryptosporidium by PCR Not detected (Not detect); Cyclospora cayetanensis PCR Not detected (Not detect); Entamoeba histolytica PCR Not detected (Not detect); Enteroaggregative E.coli(EAEC) Not detected (Not detect); Enteropathogenic E.coli(EPEC) Not detected (Not detect); Enterotoxigenic E.coli (ETEC) Not detected (Not detect); Giardia lamblia PCR Not detected (Not detect); Norovirus GI/GII PCR Not detected (Not detect); Plesiomonas shigelloides PCR Not detected (Not detect); Rotavirus A PCR Not detected (Not detect); Salmonella PCR Not detected (Not detect); Sapovirus PCR Not detected (Not detect); Shig/EnteroinvasiveE coli EIEC Not detected (Not detect); Shigalike tox-prod E coli STEC Not detected (Not detect); Vibrio PCR Not detected (Not detect); Vibrio cholerae PCR Not detected (Not detect); Yersinia enterocolitica PCR Not detected (Not detect)
[2022-06-06] MEDS: Insulin LISPRO 300 UNITS/3 ML VIAL SUBQ SCH ×5 (04:21→23:33)
[2022-06-06 05:48] LABS: Calcium 8.2 mg/dL (8.6-10.3); Potassium 3.4 mEq/L (3.5-5.1)
[2022-06-06] MEDS: Pantoprazole 40 MG VIAL IVP SCH (08:39)
[2022-06-06] MEDS: Cyanocobalamin (B-12) 1,000 MCG TABLET PO SCH (08:42)
[2022-06-06 09:23] LABS: Basophils % 0.3 %; Eosinophils # 0.1 K/mcL (0.0-0.6); Eosinophils % 0.7 %; Hemoglobin 10.2 g/dL (12.9-16.9); Immature Granulocytes % 0.3 % (0-4); Lymphocytes # 1.6 K/mcL (0.6-4.6); Lymphocytes % 13.7 %; Mean Corpuscular HGB Conc 32.9 g/dL (31.6-35.5); Mean Corpuscular Hemoglobin 29.1 pg (28.0-33.3); Mean Corpuscular Volume 88.6 fL (83.0-100.0); Mean Platelet Volume 9.9 fL (9.4-12.4); Monocytes # 0.7 K/mcL (0.0-1.3); Monocytes % 5.8 %; Neutrophils # 9.4 K/mcL (1.6-8.9); Platelet Count 258 K/mcL (140-400); Red Cell Distribution Width 13.3 % (11.5-14.5); Segmented Neutrophils % 79.2 %
[2022-06-06 09:26] LABS: White Blood Count 11.8 K/mcL (4.3-11.1)
[2022-06-06] MEDS ORDERED: Simethicone 40 MG/0.6 ML MLS IR ONE (09:42)
[2022-06-06] MEDS: Ringers Solution, Lactated 1,000 ML IVC SCH (09:43)
[2022-06-06] MEDS ORDERED: Lidocaine -MPF 2% 5 ML VIAL ONE (10:11)
[2022-06-06] MEDS: Lactobacillus 1 EACH CAP.SPRINK PO SCH (14:27)
[2022-06-07] MEDS: Insulin LISPRO 300 UNITS/3 ML VIAL SUBQ SCH ×4 (07:59→20:20)
[2022-06-07] MEDS: Ringers Solution, Lactated 1,000 ML IVC SCH (08:15)
[2022-06-07] MEDS: Lactobacillus 1 EACH CAP.SPRINK PO SCH (08:16)
[2022-06-07] MEDS: Cyanocobalamin (B-12) 1,000 MCG TABLET PO SCH (08:16)
[2022-06-07] MEDS: Pantoprazole 40 MG VIAL IVP SCH (08:16)
[2022-06-07] MEDS: Apixaban 5 MG TABLET PO SCH ×2 (08:16→20:18)
[2022-06-07] MEDS: Ondansetron 4 MG/2 ML VIAL IVP PRN (11:55)
[2022-06-07] MEDS: Acetaminophen 325 MG TABLET PO PRN (12:43)
[2022-06-07] MEDS ORDERED: cefTRIAXone 1,000 MG in 0.9 % Sodium Chloride 10 ML IVP SCH (16:00)
[2022-06-07 16:07] LABS: Basophils % 0.2 %; Eosinophils # 0.1 K/mcL (0.0-0.6); Eosinophils % 1.1 %; Hematocrit 27.2 % (37.5-50.1); Hemoglobin 9.2 g/dL (12.9-16.9); Immature Granulocytes % 0.2 % (0-4); Lymphocytes # 0.5 K/mcL (0.6-4.6); Lymphocytes % 10.5 %; Mean Corpuscular HGB Conc 33.8 g/dL (31.6-35.5); Mean Corpuscular Volume 88.6 fL (83.0-100.0); Mean Platelet Volume 9.7 fL (9.4-12.4); Monocytes # 0.3 K/mcL (0.0-1.3); Monocytes % 6.9 %; Neutrophils # 3.8 K/mcL (1.6-8.9); Platelet Count 180 K/mcL (140-400); Red Blood Count 3.07 M/mcL (4.19-5.50); Red Cell Distribution Width 13.5 % (11.5-14.5); Segmented Neutrophils % 81.1 %; White Blood Count 4.7 K/mcL (4.3-11.1)
[2022-06-07 16:18] LABS: Albumin 3.2 g/dL (3.5-5.7); Albumin/Globulin Ratio 1.4 (1.1-2.2); Bilirubin,Total 0.4 mg/dL (0.3-1.0); Calcium 7.8 mg/dL (8.6-10.3); Globulin 2.3 g/dL (2.4-3.5); Potassium 3.5 mEq/L (3.5-5.1); Total Protein 5.5 g/dL (6.4-8.9)
[2022-06-07 16:41] LABS: Bacteria,Urine Few per hpf (None-Few); Bilirubin,Urine Negative (Negative); Blood,Urine Negative (Negative); Clarity,Urine Clear (Clear); Color,Urine Light-Yellow (Yellow); Glucose,Urine (UA) Normal (Normal); Hyaline Casts,Urine Few per lpf (None Seen); Ketones,Urine Negative (Negative); Leukocyte Esterase,Urine Negative (Negative); Mucus,Urine Few per lpf (None-Few); Nitrite,Urine Negative (Negative); Protein,Urine 100 mg/dL (Neg-Trace); RBC,Urine 0-3 per hpf (0-3); Specific Gravity,Urine 1.014 (1.010-1.025); Squamous Epithelial Cell,Urine Few per hpf (None-Few); Urobilinogen,Urine Normal (Normal); WBC,Urine 0-3 per hpf (0-3)
[2022-06-08 01:35] LABS: Basophils % 0.2 %; Eosinophils % 0.2 %; Hematocrit 28.2 % (37.5-50.1); Hemoglobin 9.2 g/dL (12.9-16.9); Immature Granulocytes % 0.2 % (0-4); Lymphocytes # 0.8 K/mcL (0.6-4.6); Mean Corpuscular HGB Conc 32.6 g/dL (31.6-35.5); Mean Corpuscular Hemoglobin 29.2 pg (28.0-33.3); Mean Corpuscular Volume 89.5 fL (83.0-100.0); Monocytes # 0.4 K/mcL (0.0-1.3); Monocytes % 8.7 %; Neutrophils # 3.1 K/mcL (1.6-8.9); Platelet Count 177 K/mcL (140-400); Red Blood Count 3.15 M/mcL (4.19-5.50); Red Cell Distribution Width 13.5 % (11.5-14.5); Segmented Neutrophils % 72.7 %; White Blood Count 4.2 K/mcL (4.3-11.1)
[2022-06-08 01:56] LABS: Calcium 7.8 mg/dL (8.6-10.3); Magnesium 1.7 mg/dL (1.6-2.6); Potassium 3.5 mEq/L (3.5-5.1)
[2022-06-08] MEDS: Acetaminophen 325 MG TABLET PO PRN ×4 (02:17→18:58)
[2022-06-08] MEDS: Ringers Solution, Lactated 1,000 ML IVC SCH (02:23)
[2022-06-08] MEDS: Insulin LISPRO 300 UNITS/3 ML VIAL SUBQ SCH ×4 (07:19→21:37)
[2022-06-08] MEDS: Lactobacillus 1 EACH CAP.SPRINK PO SCH (07:33)
[2022-06-08] MEDS: Cyanocobalamin (B-12) 1,000 MCG TABLET PO SCH (07:33)
[2022-06-08] MEDS: Apixaban 5 MG TABLET PO SCH ×2 (07:33→21:51)
[2022-06-08] MEDS: Pantoprazole 40 MG VIAL IVP SCH (07:34)
[2022-06-08] MEDS: Magnesium Oxide 400 MG TABLET PO SCH (07:38)
[2022-06-08] MEDS: Piperacillin/Tazobactam 3.375 GM in 0.9 % Sodium Chloride Mini Bag 100 ML IVPB SCH (16:42)
[2022-06-08] MEDS: Ondansetron 4 MG/2 ML VIAL IVP PRN (18:50)
[2022-06-08 19:08] LABS: ABG Base Excess 0 mEq/L (-2 to 3); ABG HCO3 23 mEq/L (21-27); ABG Oxygen Saturation 89 % (95-98); ABG PCO2 28 mmHg (35-45); ABG PH 7.51 pH Units (7.32-7.45); ABG PO2 50 mmHg (85-104); ABG TCO2 24 mEq/L (20-26)
[2022-06-08] MEDS ORDERED: 0.9 % Sodium Chloride 1,000 ML IVC SCH (19:15)
[2022-06-09] MEDS: Piperacillin/Tazobactam 3.375 GM in 0.9 % Sodium Chloride Mini Bag 100 ML IVPB SCH ×3 (01:11→15:59)
[2022-06-09 02:08] LABS: Basophils % 0.1 %; Hematocrit 29.8 % (37.5-50.1); Hemoglobin 9.6 g/dL (12.9-16.9); Immature Granulocytes % 0.3 % (0-4); Lymphocytes # 1.4 K/mcL (0.6-4.6); Lymphocytes % 17.7 %; Mean Corpuscular HGB Conc 32.2 g/dL (31.6-35.5); Mean Corpuscular Hemoglobin 29.4 pg (28.0-33.3); Mean Corpuscular Volume 91.4 fL (83.0-100.0); Mean Platelet Volume 10.4 fL (9.4-12.4); Monocytes # 0.4 K/mcL (0.0-1.3); Monocytes % 4.5 %; Platelet Count 151 K/mcL (140-400); Red Blood Count 3.26 M/mcL (4.19-5.50); Red Cell Distribution Width 13.6 % (11.5-14.5); Segmented Neutrophils % 77.4 %; White Blood Count 7.8 K/mcL (4.3-11.1)
[2022-06-09 02:27] LABS: Calcium 7.5 mg/dL (8.6-10.3); Potassium 3.3 mEq/L (3.5-5.1)
[2022-06-09] MEDS: Insulin LISPRO 300 UNITS/3 ML VIAL SUBQ SCH ×4 (07:23→23:14)
[2022-06-09] MEDS ORDERED: Piperacillin/Tazobactam 3.375 GM VIAL ONE (09:20)
[2022-06-09] MEDS: Magnesium Oxide 400 MG TABLET PO SCH (09:32)
[2022-06-09] MEDS: Lactobacillus 1 EACH CAP.SPRINK PO SCH (09:32)
[2022-06-09] MEDS: Apixaban 5 MG TABLET PO SCH ×2 (09:32→20:59)
[2022-06-09] MEDS: Pantoprazole 40 MG VIAL IVP SCH (09:32)
[2022-06-09] MEDS: Cyanocobalamin (B-12) 1,000 MCG TABLET PO SCH (09:33)
[2022-06-09] MEDS ORDERED: Ipratropium/Albuterol Neb 3 ML IH SCH (10:00)
[2022-06-09 14:49] LABS: Adenovirus Not Detected (Not Detect); Bordetella Pertussis Not Detected (Not Detect); Chlamydophila pneumoniae Not Detected (Not Detect); Coronavirus 229E Not Detected (Not Detect); Coronavirus HKU1 Not Detected (Not Detect); Coronavirus NL63 Not Detected (Not Detect); Coronavirus OC43 Not Detected (Not Detect); Human Metapneumovirus Not Detected (Not Detect); Human Rhinovirus/Enterovirus Not Detected (Not Detect); Influenza A Subtype 2009 H1 Not Detected (Not Detect); Influenza B Not Detected (Not Detect); Mycoplasma pneumoniae Not Detected (Not Detect); Parainfluenza Virus 1 Not Detected (Not Detect); Parainfluenza Virus 2 Not Detected (Not Detect); Parainfluenza Virus 3 Not Detected (Not Detect); Parainfluenza Virus 4 Not Detected (Not Detect); Respiratory Syncytial Virus Not Detected (Not Detect)
[2022-06-09 14:51] LABS: SARS-CoV-2 DETECTED (Not Detect)
[2022-06-09] MEDS: Ipratropium 1 PUFF INHALER IH SCH ×3 (15:52→23:46)
[2022-06-09] MEDS: Acetaminophen 325 MG TABLET PO PRN (16:01)
[2022-06-09] MEDS ORDERED: Remdesivir 200 MG in 0.9 % Sodium Chloride 100 ML IVPB ONE (18:04)
[2022-06-09 19:18] LABS: Albumin/Globulin Ratio 1.4 (1.1-2.2); Bilirubin,Direct 0.1 mg/dL (0.0-0.2); Bilirubin,Indirect 0.3 mg/dL (0.0-1.0); Bilirubin,Total 0.4 mg/dL (0.3-1.0); Globulin 2.2 g/dL (2.4-3.5); Total Protein 5.2 g/dL (6.4-8.9)
[2022-06-10] MEDS: Piperacillin/Tazobactam 3.375 GM in 0.9 % Sodium Chloride Mini Bag 100 ML IVPB SCH ×3 (00:34→19:45)
[2022-06-10] MEDS: Ipratropium 1 PUFF INHALER IH SCH ×6 (04:30→23:28)
[2022-06-10] MEDS ORDERED: Furosemide 20 MG/2 ML VIAL IVP ONE (07:05)
[2022-06-10] MEDS: Insulin LISPRO 300 UNITS/3 ML VIAL SUBQ SCH ×4 (07:50→21:47)
[2022-06-10] MEDS: Lactobacillus 1 EACH CAP.SPRINK PO SCH (10:48)
[2022-06-10] MEDS: Apixaban 5 MG TABLET PO SCH ×2 (10:48→21:46)
[2022-06-10] MEDS: Magnesium Oxide 400 MG TABLET PO SCH (10:48)
[2022-06-10] MEDS: Cyanocobalamin (B-12) 1,000 MCG TABLET PO SCH (10:48)
[2022-06-10] MEDS ORDERED: E-Z-PAQUE (BARIUM SULF) SUSP 1 BOTTLE PO ONE ×2 (16:40→20:52)
[2022-06-10] MEDS ORDERED: E-Z-HD (BARIUM SULF) SUSPENSION PO ONE ×2 (16:40→20:52)
[2022-06-10] MEDS ORDERED: Piperacillin/Tazobactam 3.375 GM VIAL ONE (18:22)
[2022-06-10] MEDS ORDERED: 0.9 % Sodium Chloride Mini Bag 100 ML ONE (18:23)
[2022-06-10] MEDS ORDERED: Remdesivir 100 MG in 0.9 % Sodium Chloride 100 ML IVPB SCH (19:00)
[2022-06-11] MEDS: Piperacillin/Tazobactam 3.375 GM in 0.9 % Sodium Chloride Mini Bag 100 ML IVPB SCH ×2 (00:49→10:48)
[2022-06-11] MEDS: Ipratropium 1 PUFF INHALER IH SCH ×3 (04:39→11:40)
[2022-06-11 06:09] LABS: Albumin 3.1 g/dL (3.5-5.7); Albumin/Globulin Ratio 1.3 (1.1-2.2); Bilirubin,Direct 0.1 mg/dL (0.0-0.2); Bilirubin,Indirect 0.2 mg/dL (0.0-1.0); Bilirubin,Total 0.3 mg/dL (0.3-1.0); Globulin 2.4 g/dL (2.4-3.5); Total Protein 5.5 g/dL (6.4-8.9)
[2022-06-11 07:42] VITALS: PULSE 65
[2022-06-11 09:40] LABS: Potassium 3.9 mEq/L (3.5-5.1)
[2022-06-11] MEDS: Insulin LISPRO 300 UNITS/3 ML VIAL SUBQ SCH (10:53)
[2022-06-11] MEDS: Apixaban 5 MG TABLET PO SCH (10:54)
[2022-06-11] MEDS: Lactobacillus 1 EACH CAP.SPRINK PO SCH (10:54)
[2022-06-11] MEDS: Cyanocobalamin (B-12) 1,000 MCG TABLET PO SCH (10:54)
[2022-06-11] MEDS: Magnesium Oxide 400 MG TABLET PO SCH (10:55)
[2022-06-11 11:10] VITALS: BP 160/76; TEMP 98.6; O2SAT 97
== END 2022-06-11 11:54 | disposition home health service (06) | DRG 640 ==
LOC: EMEROOARM 14:04 → 2ANU 14:04 → SUATTDRO 06-06 14:35
PROVIDERS: ADMIT Internal Medicine; ATTEND Internal Medicine
PROC: ENDOCBX (2022-06-06 07:45)
PROC: ENDOEBX (2022-06-06 07:45)